=== PATIENT | female | born 1945 | race Caucasian/White ===

== ENCOUNTER 2016-10-27 08:39 | Outpatient (CLI) | payer MEDICARE, OTHER | END 2016-10-27 08:40 | disposition home or self-care (01) | DX: R11.2 Nausea with vomiting, unspecified (principal); E10.9 Type 1 diabetes mellitus without complications ==

== ENCOUNTER 2016-10-30 15:14 | Outpatient (CLI) | payer MEDICARE, OTHER | END 2016-10-30 15:15 | disposition home or self-care (01) | DX: R11.2 Nausea with vomiting, unspecified (principal); R10.32 Left lower quadrant pain ==

== ENCOUNTER 2016-10-31 13:03 | Outpatient (CLI) | payer MEDICARE, OTHER | END 2016-10-31 13:04 | disposition home or self-care (01) | DX: R10.32 Left lower quadrant pain (principal); R11.2 Nausea with vomiting, unspecified; Z90.49 Acquired absence of other specified parts of digestive tract ==

== ENCOUNTER 2017-01-14 14:08 | Outpatient (CLI) | payer MEDICARE, OTHER | END 2017-01-14 14:09 | disposition home or self-care (01) | DX: R79.89 Other specified abnormal findings of blood chemistry (principal) ==

== ENCOUNTER 2017-01-31 11:01 | Outpatient (CLI) | payer MEDICARE, OTHER | END 2017-01-31 11:02 | disposition home or self-care (01) | DX: N18.3 Chronic kidney disease, stage 3 (moderate) (principal) ==

== ENCOUNTER 2017-02-23 16:39 | Outpatient (CLI) | payer MEDICARE, OTHER ==
[2017-02-24 11:34] LABS: THYROID STIMULATING HORMONE 11.75 uIU/mL (0.34-5.60)
== END 2017-02-23 16:40 | disposition home or self-care (01) ==
LOC: LAB.S 16:39
PROVIDERS: ATTEND Nurse Practitioner Family
DX: E03.9 Hypothyroidism, unspecified (principal)
CPT/HCPCS: 36415; 84439; 84443

== ENCOUNTER 2017-03-20 11:45 | Outpatient (CLI) | payer MEDICARE, OTHER | END 2017-03-20 11:46 | disposition short-term general hospital (02) | LOC: EMS 11:45 | PROVIDERS: ATTEND Surgery | DX: R53.1 Weakness (principal) | CPT/HCPCS: A0425; A0427 ==

== ENCOUNTER 2017-04-26 08:00 | Outpatient (CLI) | payer MEDICARE, OTHER ==
[2017-04-26 19:54] LABS: BASOPHILS # (AUTO) 0.1 10^3/uL (0.0-0.1); BASOPHILS % (AUTO) 1.1 %; EOSINOPHILS # (AUTO) 0.3 10^3/uL (0.0-0.7); EOSINOPHILS % (AUTO) 5.1 %; HCT - HEMATOCRIT 30.6 % (37.0-47.0); LYMPHOCYTES % (AUTO) 18.8 %; MEAN CORPUSCULAR HEMOGLOBIN 26.5 pg (27.0-31.0); MEAN CORPUSCULAR HGB CONC 32.6 g/dL (32.0-36.0); MEAN CORPUSCULAR VOLUME 81.3 fL (81.0-99.0); MEAN PLATELET VOLUME 7.5 fL (7.9-10.8); MONOCYTES # (AUTO) 1.1 10^3/uL (0.0-1.0); NEUTROPHILS # (AUTO) 2.8 10^3/uL (1.5-6.6); NUCLEATED RED BLOOD CELLS AUTO 0.1 /100WBC; RED BLOOD COUNT 3.76 10^6/uL (4.20-5.40); RED CELL DISTRIBUTION WIDTH 18.1 % (12.0-15.0); UNCORRECTED WHITE BLOOD COUNT 5.2 x10^3/uL; WHITE BLOOD COUNT 5.2 x10^3/uL (4.8-10.8)
[2017-04-26 20:06] LABS: BILIRUBIN,TOTAL 0.2 mg/dL (0.2-1.0); TOTAL PROTEIN 7.7 g/dL (6.7-8.2)
[2017-04-26 20:07] LABS: BILIRUBIN,DIRECT < 0.1 mg/dL (0.1-0.5)
== END 2017-04-26 08:01 | disposition home or self-care (01) ==
LOC: LAB.R 08:00
DX: D64.9 Anemia, unspecified (principal); Z79.899 Other long term (current) drug therapy
CPT/HCPCS: 80076; 80164; 85025

== ENCOUNTER 2017-05-04 16:00 | Outpatient (CLI) | payer MEDICARE, OTHER ==
[2017-05-04 18:10] LABS: BILIRUBIN,URINE NEGATIVE (NEGATIVE); PH,URINE 8.5 PH (5.0-7.5)
[2017-05-04 18:11] LABS: UA w/ MICROSCOPIC CHARGE YES
[2017-05-04 18:27] LABS: UR CULTURE IF IND INDICATED; WBC,URINE >25 /HPF (0-5)
== END 2017-05-04 16:01 | disposition home or self-care (01) ==
LOC: LAB.R 16:00
DX: N39.0 Urinary tract infection, site not specified (principal)
CPT/HCPCS: 81001; 81003; 87077; 87086

== ENCOUNTER 2017-05-16 18:51 | Outpatient (CLI) | payer MEDICARE, OTHER | END 2017-05-16 18:52 | disposition critical access hospital (66) | LOC: EMS 18:51 | PROVIDERS: ATTEND Surgery | DX: R50.9 Fever, unspecified (principal); R41.0 Disorientation, unspecified; R06.02 Shortness of breath; R05 Cough | CPT/HCPCS: A0425; A0429 ==

== ENCOUNTER 2017-05-16 18:55 | Inpatient (IN) | payer MEDICARE, OTHER ==
[2017-05-16] MEDS ORDERED: VANCOMYCIN INJ 1.5 GM in SODIUM CHLORIDE 0.9% 500 ML IV STA ×2 (19:20→23:49)
[2017-05-16] MEDS ORDERED: CEFEPIME 2 GM in SODIUM CHLORIDE 0.9% MINIBAG 100 ML IV STA (19:20)
--- NOTE | 2017-05-16 19:38 | ED Physician Documentation ---
History of Present Illness - Stated complaint Stated Complaint: FEVER - Chief complaint Chief Complaint: Resp - History obtained from History obtained from: Patient, EMS - History of Present Illness Timing: Other (72-year-old woman presents from local correction by ambulance for hypoxemia (79%) and fever with recent diagnosis of pneumonia on her about day 5 of Zithromax. Review of the chart shows also that she had a fairly resistant UTI a couple of weeks ago. It is not clear what this was treated with. Patient is a poor historian, she said is 1966 and does not really know why she is here and has vacillating complaints.) Review of Systems Unable to obtain: Confused PD PAST MEDICAL HISTORY - Past Surgical History Past Surgical History: Yes General: Cholecystectomy, Appendectomy - Present Medications Home Medications: Ambulatory Orders Medication Instructions Recorded Confirmed FLUoxetine [PROzac] 40 mg PO DAILY 11/10/13 11/10/13 Atorvastatin [Lipitor] 0 mg 05/16/17 Azithromycin 250 mg PO 05/16/17 Clopidogrel [Plavix] 75 mg PO ONCE 05/16/17 05/16/17 oxyCODONE/ACET 5/325 [Percocet 5 1 each PO ONCE 05/16/17 05/16/17 mg/325 mg] - Allergies Allergies/Adverse Reactions: Allergies Allergy/AdvReac Type Severity Reaction Status Date / Time codeine Allergy Unknown Verified 05/16/17 19:02 - Social History Does the pt smoke?: No Smoking Status: Never smoker Does the pt drink ETOH?: No Does the pt have substance abuse?: No PD ED PE NORMAL - Vitals Vital signs reviewed: Yes - General General: No acute distress, Well developed/nourished, Other (Oriented to person only) - HEENT HEENT: PERRL, EOMI - Neck Neck: Supple, no meningeal sign, No bony TTP - Cardiac Cardiac: RRR, No murmur - Respiratory Respiratory: No respiratory distress, Other (Rhonchorous throughout) - Abdomen Abdomen: Soft, Non tender - Back Back: No CVA TTP, No spinal TTP - Derm Derm: Normal color, Warm and dry - Extremities Extremities: No edema, No calf tenderness / cord - Neuro Neuro: binding cutter synthetic cloth 2-12 intact, No motor deficit, No sensory deficit - Psych Psych: Normal mood, Normal affect Results - Vitals Vitals: Vital Signs - 24 hr 05/16/17 18:56 Temperature 38.3 C H Heart Rate 114 H Respiratory 17 Rate Blood Pressure 141/83 H O2 Saturation 96 Oxygen O2 Source Nasal cannula Oxygen Flow Rate 2 - Labs Labs: Laboratory Tests 05/16/17 05/16/17 05/16/17 19:30 19:31 19:31 WBC 17.1 H RBC 3.24 L Hgb 8.6 L Hct 26.4 L MCV 81.5 MCH 26.7 L MCHC 32.8 RDW 17.6 H Plt Count 634 H MPV 6.2 L Neut # Not Reportable Lymph # Not Reportable Reagan # Not Reportable Eos # Not Reportable Baso # Not Reportable Absolute Nucleated RBC Not Reportable Band Neuts % (Manual) 3 Myelocytes % 4 H Neutrophils # (Manual) 14.2 H Lymphocytes # (Manual) 1.0 L Monocytes # (Manual) 0.5 Eosinophils # (Manual) 0.5 Basophils # (Manual) 0.2 H Nucleated RBCs Not Reportable WBC Morphology 1+ TOXIC GRANULATION Platelet Estimate INCREASED (>450,000) RBC Morph Micro Appear NORMAL APPEARANCE Sodium 135 Potassium 3.5 Chloride 96 L Carbon Dioxide 27 Anion Gap 12.0 BUN 18 Creatinine 1.3 H Estimated GFR (MDRD) 40 L Glucose 139 H Lactic Acid Calcium 9.3 Last Dose Date UNKNOWN Last Dose Time UNKNOWN Valproic Acid 36.9 05/16/17 19:31 WBC RBC Hgb Hct MCV MCH MCHC RDW Plt Count MPV Neut # Lymph # Reagan # Eos # Baso # Absolute Nucleated RBC Band Neuts % (Manual) Myelocytes % Neutrophils # (Manual) Lymphocytes # (Manual) Monocytes # (Manual) Eosinophils # (Manual) Basophils # (Manual) Nucleated RBCs WBC Morphology Platelet Estimate RBC Morph Micro Appear Sodium Potassium Chloride Carbon Dioxide Anion Gap BUN Creatinine Estimated GFR (MDRD) Glucose Lactic Acid 1.0 Calcium Last Dose Date Last Dose Time Valproic Acid PD MEDICAL DECISION MAKING - ED course Complexity details: other (RN called [facility], pt was on cipro 250mg po bid x 3d for uti late last mo) ED course: 72-year-old woman presents with known pneumonia from a local correction with hypoxemia and fever, continued infiltrate on x-ray and leukocytosis without evidence of septic shock. Blood cultures were obtained and she was administered cefepime, Levaquin, and vancomycin. Spoke with Dr. Mcallister the hospitalist for admission at 8:33 PM by phone. Departure - Departure Disposition: 66 [facility] DC/Xfer Clinical Impression: Hypoxemia Pneumonia Qualifiers: Pneumonia type: due to unspecified organism Laterality: left Lung location: lower lobe of lung Qualified Code(s): J18.1 - Lobar pneumonia, unspecified organism Condition: Serious
[2017-05-16 19:43] LABS: BASOPHILS % (AUTO) 0.9 %; EOSINOPHILS % (AUTO) 2.4 %; HCT - HEMATOCRIT 26.4 % (37.0-47.0); HGB - HEMOGLOBIN 8.6 g/dL (12.0-16.0); LYMPHOCYTES % (AUTO) 4.3 %; MEAN CORPUSCULAR HEMOGLOBIN 26.7 pg (27.0-31.0); MEAN CORPUSCULAR HGB CONC 32.8 g/dL (32.0-36.0); MEAN CORPUSCULAR VOLUME 81.5 fL (81.0-99.0); MEAN PLATELET VOLUME 6.2 fL (7.9-10.8); MONOCYTES % (AUTO) 8.8 %; NEUTROPHILS % (AUTO) 83.6 %; RED BLOOD COUNT 3.24 10^6/uL (4.20-5.40); RED CELL DISTRIBUTION WIDTH 17.6 % (12.0-15.0); UNCORRECTED WHITE BLOOD COUNT 17.1 x10^3/uL; WHITE BLOOD COUNT 17.1 x10^3/uL (4.8-10.8)
[2017-05-16 20:01] LABS: CALCIUM 9.3 mg/dL (8.5-10.3); CREATININE 1.3 mg/dL (0.4-1.0); POTASSIUM 3.5 mmol/L (3.5-5.0)
--- NOTE | 2017-05-16 20:24 | XRAY Preliminary Report ---
Exam: XR Chest 2 View PA/LAT IMPRESSION: Left lower lobe pneumonia. [facility] SITE ID: [id number]
--- NOTE | 2017-05-16 20:26 | XRAY Report ---
EXAM: CHEST RADIOGRAPHY EXAM DATE: 05/16/2017 08:11 PM. CLINICAL HISTORY: Cough, worse pna. COMPARISON: Chest x-ray 11/22/2012. TECHNIQUE: 2 views. FINDINGS: Lungs/Pleura: There is a consolidative process in the left lower lobe. Right lung is clear. Negative for pneumothorax. Mediastinum: Heart and mediastinal contours are unremarkable. Other: None. IMPRESSION: Left lower lobe pneumonia. [facility] Referring Provider Line: [phone] SITE ID: [id number]
[2017-05-16 20:32] LABS: BAND NEUTROPHILS % (MANUAL) 3 %; BASOPHILS % (MANUAL) 1 %; EOSINOPHILS % (MANUAL) 3 %; LYMPHOCYTES % (MANUAL) 6 %; NEUTROPHILS % (MANUAL) 80 %; PLATELET ESTIMATE, MANUAL INCREASED (>450,000) (NORMAL)
[2017-05-16 20:33] LABS: NP AUTO DIFFERENTIAL? YES; NP MAN DIFFERENTIAL? NO; WBC MORPHOLOGY (MULTIPLE) 1+ TOXIC GRANULATION (NORMAL)
[2017-05-16 20:50] LABS: BILIRUBIN,URINE NEGATIVE (NEGATIVE); UA w/ MICROSCOPIC CHARGE YES
[2017-05-16 20:51] LABS: UR CULTURE IF IND INDICATED
[2017-05-16] MEDS ORDERED: ONDANSETRON ODT 4 MG TABLET TL PRN (21:38)
[2017-05-16] MEDS ORDERED: HALOPERIDOL 5 MG/ML VIAL IM ONE (21:38)
[2017-05-16] MEDS ORDERED: SODIUM CHLORIDE FLUSH 0.9% 10 ML SYRINGE IVP PRN (21:38)
[2017-05-16] MEDS ORDERED: HALOPERIDOL 5 MG/ML VIAL ONE (21:44)
[2017-05-16] MEDS ORDERED: SODIUM CHLORIDE 0.9% 1,000 ML IV ONE (21:48)
[2017-05-16] MEDS ORDERED: ACETAMINOPHEN 650 MG SUPP PR STA (21:48)
[2017-05-16] MEDS ORDERED: ACETAMINOPHEN 650 MG SUPP PR ONE (21:54)
--- NOTE | 2017-05-16 22:06 | HISTORY & PHYSICAL EXAMINATION ---
Chief Complaint - Chief Complaint Chief Complaint: hypoxia, fever Respiratory Admission HPI - Admitted From Admitted from: ED - History Obtained From Records Reviewed: Old records reviewed History obtained from: Patient Exam limitations: Other (dementia) - History of Present Illness Location Problem/Description: chest pain Severity at the worst: reports: Moderate Context of Onset: reports: Other (cough) Timing: reports: Gradual onset Duration: reports: Days: HPI Comment/Other: 72yoF with h/o oropharyngeal cancer, anemia, CKD, CVA and dementia. Pt resides at snf. On 05/04 she was diagnosed with UTI growing a fairly resistant morganella, and given 3days of cipro. On 05/12 she was diagnosed with PNA and started on Azithromycin with no improvement. Today she was noted to have a fever and brought to the ER. Here she was found to have a LLL infiltrate on CXR , elevated WBC wtih left shift, hypoxic to 78% and tachycardic. She states she has been coughing for "some time now", but cannot give details. She endorses chest pain with coughing, small sputum production, unclear if she is having fevers. denies nausea, diarrhea. Has multiple bruises on extremities and states she fell. PMH/PSH - Past Medical History Cardiovascular: positive: Hypertension Neuro: positive: Dementia, CVA, Headache/migraine Endocrine/Autoimmune: positive: HyPOthyroidism : positive: Renal insuffiency Other Past Medical History: anemia, chronic kidney disease, cognitive impairment , major depressive disorder, chronic UTI's - Past Surgical History General: positive: Cholecystectomy, Appendectomy Social & Family Hx - Living Situation Living Arrangement: [facility] Living Situation: With caregiver(s) - Social History Does the pt smoke?: No Smoking Status: Never smoker Does the pt drink ETOH?: No Does the pt have substance abuse?: No Additional Social History: - POLST Patient has POLST: Yes - Family History Family History Comment/Other: unable to obtain due to dementia Meds/Allgy - Home Medications Home Medications: Ambulatory Orders Medication Instructions Recorded Confirmed FLUoxetine [PROzac] 40 mg PO DAILY 11/10/13 11/10/13 Atorvastatin [Lipitor] 0 mg 05/16/17 Azithromycin 250 mg PO 05/16/17 Clopidogrel [Plavix] 75 mg PO ONCE 05/16/17 05/16/17 oxyCODONE/ACET 5/325 [Percocet 5 1 each PO ONCE 05/16/17 05/16/17 mg/325 mg] - Allergies Allergies/Adverse Reactions: Allergies Allergy/AdvReac Type Severity Reaction Status Date / Time codeine Allergy Unknown Verified 05/16/17 19:02 Review of Systems - Constitutional Constitutional: reports: Fever - Ears, Nose & Throat Ears, Nose & Throat: reports: Sore throat - Cardiovascular Cariovascular: reports: Chest pain - Respiratory Respiratory: reports: Cough, Sputum production - Gastrointestinal Gastrointestinal: denies: Diarrhea, Nausea - Neurological Neurological: reports: Memory problems Exam - Vital Signs Reviewed Vital Signs: Yes Vital Signs: Vital Signs x48h Temp Pulse Resp BP Pulse Ox 05/16/17 21:56 118 H 20 153/89 H 95 05/16/17 20:57 36.9 C 106 H 18 150/68 H 97 05/16/17 18:56 38.3 C H 114 H 17 141/83 H 96 - Physical Exam General Appearance: positive: No acute distress Eyes Bilateral: positive: PERRL, EOMI, Conjunctivae nml, No scleral icterus ENT: positive: Dry mucous membranes, Other (poor dentition). negative: Oral lesions Neck: positive: Thyroid nml. negative: Thyromegaly, Lymphadenopathy (R), Lymphadenopathy (L), Stiff neck Respiratory: positive: Chest non-tender, Rhonchi (L base crackles). negative: Wheezes Cardiovascular: positive: Regular rate & rhythm, No murmur, No gallop Peripheral Pulses: positive: 2+ Abdomen: positive: Non-tender, No organomegaly, No distention. negative: Guarding, Rebound Back: negative: CVA tenderness (R), CVA tenderness (L) Skin: positive: Warm, Dry, Other (multiple bruises on legs bilaterally) Extremities: positive: No pedal edema, Joint swelling Neurologic/Psychiatric: positive: Other (constant movement, able to answer some questions, but poor memory of events and timeline) Results - Lab Results Lab results reviewed: Yes Fish Bones: 05/16/17 19:31 05/16/17 19:31 Other Lab Results: Lab Results x24hrs 05/16/17 05/16/17 05/16/17 Range/Units 19:38 19:31 19:31 WBC (4.8-10.8) x10^3/uL RBC (4.20-5.40) 10^6/uL Hgb (12.0-16.0) g/dL Hct (37.0-47.0) % MCV (81.0-99.0) fL MCH (27.0-31.0) pg MCHC (32.0-36.0) g/dL RDW (12.0-15.0) % Plt Count (130-450) 10^3/uL MPV (7.9-10.8) fL Neut # Lymph # Isabella # Eos # Baso # Absolute Nucleated RBC Band Neuts % (Manual) (0 - 10) % Myelocytes % ( - 0) % Neutrophils # (Manual) (1.5-6.6) 10^3/uL Lymphocytes # (Manual) (1.5-3.5) 10^3/uL Monocytes # (Manual) (0.0-1.0) 10^3/uL Eosinophils # (Manual) (0-0.7) 10^3/uL Basophils # (Manual) (0-0.1) 10^3/uL Nucleated RBCs WBC Morphology (NORMAL) Platelet Estimate (NORMAL) RBC Morph Micro Appear (NORMAL) Sodium 135 (135-145) mmol/L Potassium 3.5 (3.5-5.0) mmol/L Chloride 96 L (101-111) mmol/L Carbon Dioxide 27 (21-32) mmol/L Anion Gap 12.0 (6-13) BUN 18 (6-20) mg/dL Creatinine 1.3 H (0.4-1.0) mg/dL Estimated GFR (MDRD) 40 L (>89) Glucose 139 H (70-100) mg/dL Lactic Acid 1.0 (0.5-2.2) mmol/L Calcium 9.3 (8.5-10.3) mg/dL Urine Color YELLOW Urine Clarity HAZY (CLEAR) Urine pH 6.0 (5.0-7.5) PH Ur Specific [place] 1.020 (1.002-1.030) Urine Protein 30 H (NEGATIVE) mg/dL Urine Glucose (UA) NEGATIVE (NEGATIVE) mg/dL Urine Ketones TRACE (NEGATIVE) mg/dL Urine Occult Blood SMALL H (NEGATIVE) Urine Nitrite NEGATIVE (NEGATIVE) Urine Bilirubin NEGATIVE (NEGATIVE) Urine Urobilinogen 0.2 (NORMAL) (NORMAL) E.U./dL Ur Leukocyte Esterase TRACE H (NEGATIVE) Urine RBC 6-10 H (0-5) /HPF Urine WBC 11-25 H (0-5) /HPF Ur Squamous Epith Cells FEW Squamous (<= Few) Urine Bacteria Moderate H (None Seen) /HPF Ur Microscopic Review INDICATED Urine Culture Comments INDICATED Last Dose Date Last Dose Time Valproic Acid ug/mL 05/16/17 05/16/17 Range/Units 19:31 19:30 WBC 17.1 H (4.8-10.8) x10^3/uL RBC 3.24 L (4.20-5.40) 10^6/uL Hgb 8.6 L (12.0-16.0) g/dL Hct 26.4 L (37.0-47.0) % MCV 81.5 (81.0-99.0) fL MCH 26.7 L (27.0-31.0) pg MCHC 32.8 (32.0-36.0) g/dL RDW 17.6 H (12.0-15.0) % Plt Count 634 H (130-450) 10^3/uL MPV 6.2 L (7.9-10.8) fL Neut # Not Reportable Lymph # Not Reportable Isabella # Not Reportable Eos # Not Reportable Baso # Not Reportable Absolute Nucleated RBC Not Reportable Band Neuts % (Manual) 3 (0 - 10) % Myelocytes % 4 H ( - 0) % Neutrophils # (Manual) 14.2 H (1.5-6.6) 10^3/uL Lymphocytes # (Manual) 1.0 L (1.5-3.5) 10^3/uL Monocytes # (Manual) 0.5 (0.0-1.0) 10^3/uL Eosinophils # (Manual) 0.5 (0-0.7) 10^3/uL Basophils # (Manual) 0.2 H (0-0.1) 10^3/uL Nucleated RBCs Not Reportable WBC Morphology 1+ TOXIC GRANULATION (NORMAL) Platelet Estimate INCREASED (>450,000) (NORMAL) RBC Morph Micro Appear NORMAL APPEARANCE (NORMAL) Sodium (135-145) mmol/L Potassium (3.5-5.0) mmol/L Chloride (101-111) mmol/L Carbon Dioxide (21-32) mmol/L Anion Gap (6-13) BUN (6-20) mg/dL Creatinine (0.4-1.0) mg/dL Estimated GFR (MDRD) (>89) Glucose (70-100) mg/dL Lactic Acid (0.5-2.2) mmol/L Calcium (8.5-10.3) mg/dL Urine Color Urine Clarity (CLEAR) Urine pH (5.0-7.5) PH Ur Specific [place] (1.002-1.030) Urine Protein (NEGATIVE) mg/dL Urine Glucose (UA) (NEGATIVE) mg/dL Urine Ketones (NEGATIVE) mg/dL Urine Occult Blood (NEGATIVE) Urine Nitrite (NEGATIVE) Urine Bilirubin (NEGATIVE) Urine Urobilinogen (NORMAL) E.U./dL Ur Leukocyte Esterase (NEGATIVE) Urine RBC (0-5) /HPF Urine WBC (0-5) /HPF Ur Squamous Epith Cells (<= Few) Urine Bacteria (None Seen) /HPF Ur Microscopic Review Urine Culture Comments Last Dose Date UNKNOWN Last Dose Time UNKNOWN Valproic Acid 36.9 ug/mL - Diagnostic Imaging Results Diagnostic Imaging Results: positive: Final report reviewed Diagnostic Imaging Results Comments: LLL infiltrate - Other Other Results/Comments: 05/04 UCx - Morganella morganii (R-Amp, CTX, cefurox, nitro, tetra, I-piper) ARRA - Anticipated LOS Anticipated Stay Length: 2 or more midnights - DVT/VTE - Prophylaxis VTE/DVT Device ordered at admit?: Yes Impression/Plan - Problem List Problem List: 1. LLL PNA - health care acquired and recently on mult abx - stop azithromycin - will give vanc, cefepime and levo - renally dose for CrCl=40 Levo 750mg iv q48hrs Cefepime 2g iv q12hr Vanc 1.5g iv q36hrs - check vanc trough prior to 4th dose - sputum culture - BCx x2 drawn in ER, await results - monitor renal function to assess if further dose adjustment is needed - aggressive RT / pulm toilet - wean oxygen as tolerated 2. CKD - at baseline (Cr=1.3) - monitor closely for possible need to adjust abx dosing 3. Hx of hypothyroidism noted in chart, not on thyroid medication - check TSH and FT4 4. Hx of HTN, not currently on HTN medications outpt, but BP elevated in ER - given acute illness, will not start medication at this time - monitor as infection resolves, may need to consider starting anti-HTN agent 5. h/o CVA - continue plavix - continue lipitor, dose unknown, will give 10mg qhs - check lipid panel 6. Chronic anemia, at baseline per our system 7. poor dentition - refer to dental for outpt management 8. h/o oropharyngeal cancer - does not appear to have acute issues 9. DVT prophy - heparin 10. Dispo - likely will return to snf once hypoxia resolved and off oxygen - anticipate hospital LOS <96 hrs
[2017-05-16] MEDS ORDERED: CLOPIDOGREL 75 MG TABLET PO STA (22:28)
[2017-05-16] MEDS ORDERED: ATORVASTATIN 10 MG TABLET PO STA (22:29)
[2017-05-16] MEDS: SODIUM CHLORIDE 0.9% 1,000 ML IV SCH (22:56)
[2017-05-16] MEDS: SODIUM CHLORIDE FLUSH 0.9% 10 ML SYRINGE IVP SCH (22:56)
[2017-05-17] MEDS ORDERED: VANCOMYCIN 500 MG VIAL ONE (00:07)
[2017-05-17] MEDS ORDERED: VANCOMYCIN 1 GM VIAL ONE (00:08)
[2017-05-17] MEDS ORDERED: SODIUM CHLORIDE 0.9% 500 ML IV ONE (00:09)
[2017-05-17] MEDS: traMADol 50 MG TABLET PO PRN ×5 (01:01→22:36)
[2017-05-17] MEDS: ACETAMINOPHEN 325 MG TABLET PO PRN ×4 (02:35→21:30)
[2017-05-17] MEDS: SODIUM CHLORIDE FLUSH 0.9% 10 ML SYRINGE IVP SCH ×3 (03:45→13:27)
[2017-05-17 06:38] LABS: BASOPHILS % (AUTO) 0.6 %; EOSINOPHILS % (AUTO) 0.1 %; HCT - HEMATOCRIT 23.7 % (37.0-47.0); HGB - HEMOGLOBIN 7.3 g/dL (12.0-16.0); MEAN CORPUSCULAR HEMOGLOBIN 25.5 pg (27.0-31.0); MEAN CORPUSCULAR VOLUME 82.2 fL (81.0-99.0); MEAN PLATELET VOLUME 6.1 fL (7.9-10.8); MONOCYTES % (AUTO) 8.8 %; NEUTROPHILS % (AUTO) 88.5 %; RED BLOOD COUNT 2.88 10^6/uL (4.20-5.40); RED CELL DISTRIBUTION WIDTH 17.8 % (12.0-15.0); UNCORRECTED WHITE BLOOD COUNT 32.7 x10^3/uL; WHITE BLOOD COUNT 32.7 x10^3/uL (4.8-10.8)
[2017-05-17 06:53] LABS: CALCIUM 8.2 mg/dL (8.5-10.3); CREATININE 1.1 mg/dL (0.4-1.0); PHOSPHORUS 2.5 mg/dL (2.5-4.6); POTASSIUM 3.9 mmol/L (3.5-5.0)
[2017-05-17 06:56] LABS: CHOL/HDL RATIO 3.6 (<4.4); CHOLESTEROL 79 mg/dL; HDL CHOLESTEROL 22 mg/dL; LDL/HDL RATIO 1.7 (<4.4); TRIGLYCERIDES 98 mg/dL; VLDL CHOLESTEROL 20 mg/dL
[2017-05-17 07:11] LABS: BAND NEUTROPHILS % (MANUAL) 19 %; EOSINOPHILS % (MANUAL) 1 %; LYMPHOCYTES % (MANUAL) 4 %; NEUTROPHILS % (MANUAL) 74 %; NP AUTO DIFFERENTIAL? YES; NP MAN DIFFERENTIAL? NO; PLATELET ESTIMATE, MANUAL INCREASED (>450,000) (NORMAL); TOTAL CELLS COUNTED 100
[2017-05-17 07:17] LABS: HEMOGLOBIN A1C 0.43 g/dL
[2017-05-17 07:27] LABS: THYROID STIMULATING HORMONE 10.01 uIU/mL (0.34-5.60)
[2017-05-17] MEDS: POLYETHYLENE GLYCOL 3350 17 GM PACKET PO SCH (08:08)
[2017-05-17] MEDS: HEPARIN 5,000 UNIT/ML VIAL SUBQ SCH ×2 (08:08→21:38)
[2017-05-17] MEDS: CEFEPIME 2 GM in SODIUM CHLORIDE 0.9% MINIBAG 100 ML IV SCH ×2 (08:08→21:31)
[2017-05-17] MEDS ORDERED: CLOPIDOGREL 75 MG TABLET PO SCH (09:00)
[2017-05-17] MEDS: SODIUM CHLORIDE 0.9% 1,000 ML IV SCH ×2 (11:10→11:43)
[2017-05-17 12:07] LABS: HCT - HEMATOCRIT 22.9 % (37.0-47.0); HGB - HEMOGLOBIN 7.3 g/dL (12.0-16.0)
--- NOTE | 2017-05-17 13:23 | CT Preliminary Report ---
Exam: CT Chest W/O IMPRESSION: 1. Left lower lobe consolidation suspicious for pneumonia. 2. Small left and trace right pleural effusion. [facility] SITE ID: [id number]
--- NOTE | 2017-05-17 13:26 | CT Report ---
EXAM: CT CHEST EXAM DATE: 05/17/2017 12:21 PM. CLINICAL HISTORY: Cough. COMPARISONS: 08/13/2015. TECHNIQUE: Routine helical CT imaging was performed through the chest. IV contrast: None. Reconstruct ions: Coronal and sagittal. In accordance with CT protocol optimization, one or more of the following dose reduction techniques w ere utilized for this exam: automated exposure control, adjustment of mA and/or KV based on patient s ize, or use of iterative reconstructive technique. FINDINGS: Lungs/Pleura: There is consolidation with air bronchograms in the left lower lobe. There is a small n ew left pleural effusion and a trace right pleural effusion. There is dependent density in the cotton stomper ior left upper lobe and right lower lobe consistent with atelectasis. Mediastinum: The heart size is normal. There are moderate coronary artery calcifications. Bones: Unremarkable. Visualized Abdomen: Unremarkable. Other: None. IMPRESSION: 1. Left lower lobe consolidation suspicious for pneumonia. 2. Small left and trace right pleural effusion. [facility] Referring Provider Line: [phone] SITE ID: [id number]
--- NOTE | 2017-05-17 14:04 | CT Preliminary Report ---
Exam: CT Abdomen/Pelvis W/O IMPRESSION: Mild/moderate colonic diverticulosis without findings of acute diverticulitis. No other l ocalizing acute inflammatory process demonstrated. [facility] SITE ID: [id number]
--- NOTE | 2017-05-17 14:07 | CT Report ---
EXAM: CT ABDOMEN AND PELVIS EXAM DATE: 05/17/2017 12:21 PM. CLINICAL HISTORY: Left lower quadrant pain. COMPARISONS: 10/31/2016. TECHNIQUE: Routine helical CT imaging was performed through the abdomen and pelvis. IV contrast: No. Enteric contrast: No. Reconstructions: Coronal and sagittal. In accordance with CT protocol optimization, one or more of the following dose reduction techniques w ere utilized for this exam: automated exposure control, adjustment of mA and/or KV based on patient s ize, or use of iterative reconstructive technique. FINDINGS: Lung Bases: There is left lower lobe consolidation and pleural effusion. Liver: The liver is normal in size and contour. Gallbladder/Bile Ducts: The gallbladder is surgically absent. Spleen: Spleen size is normal. Pancreas: Pancreas is normal in size and contour. Adrenal Glands: Normal. Kidneys: No urolithiasis or hydronephrosis. Peritoneal Cavity/Bowel: No bowel obstruction. No abnormal fluid or gas collection. There are mild to moderate scattered colonic diverticula. Pelvic Organs: Urinary bladder is unremarkable. Vasculature: No aneurysms or other significant abnormality. Bones: No lytic or destructive bony process. Other: None. IMPRESSION: Mild/moderate colonic diverticulosis without findings of acute diverticulitis. No other l ocalizing acute inflammatory process demonstrated. [facility] Referring Provider Line: [phone] SITE ID: [id number]
--- NOTE | 2017-05-17 19:13 | PROVIDER PROGRESS NOTE ---
Subjective - Subjective Pt reports feeling: Improved Subjective: pt report she improve on respiratory, no SOB. had some left lower extremity abdominal pain, weakness Objective - Vital Signs/Intake & Output Vital Signs: Vital Signs x48h Temp Pulse Resp BP Pulse Ox 05/17/17 15:49 36.5 C 83 16 105/54 L 94 05/17/17 13:40 36.7 C 56 L 16 98/49 L 05/17/17 13:07 36.8 C 90 18 98/52 L 96 Intake & Output: Intake & Output 05/14/17 05/15/17 05/16/17 05/17/17 23:59 23:59 23:59 23:59 Intake Total 2877 Balance 2877 - Objective General Appearance: positive: Alert, Mild distress. negative: Lethargic Eyes Bilateral: positive: Normal inspection, PERRL, EOMI ENT: positive: ENT inspection nml, Pharynx nml, No signs of dehydration. negative: Purulent nasal drainage, Pharyngeal erythema Neck: positive: Nml inspection, Thyroid nml, Trachea midline. negative: Lymphadenopathy (R), Lymphadenopathy (L), Stiff neck, Swelling/bruising Respiratory: positive: Chest non-tender, No respiratory distress, Rhonchi. negative: Wheezes, Rales Cardiovascular: positive: Regular rate & rhythm. negative: Extrasystoles, Tachycardia, Bradycardia, Gallop/S4, Friction rub, Decreased pulse(s), Crepitus Peripheral Pulses: 2+ Radial (R), 2+ Radial (L), 2+ Dorsalis pedis (R), 2+ Dorsalis pedis (L) Abdomen: positive: Non-tender, Nml bowel sounds, No distention, Other (complain of pain at left lower quadrant). negative: Tenderness, Guarding, Rebound Back: positive: Nml inspection. negative: CVA tenderness (R), CVA tenderness (L ) Skin: positive: Color nml, Warm, Dry, Pallor. negative: Diaphoresis, Decubitus Extremities: positive: Non-tender, Full ROM, Nml appearance Neurologic/Psychiatric: positive: Oriented x3, CN's nml (2-12), Motor nml, Sensation nml, Mood/affect nml. negative: Disoriented to person, Disoriented to place, Disoriented to time, Weakness, Sensory loss, Facial droop, Slurred/ abnml speech, Depressed mood/affect - Lab Results Fish Bones: 05/18/17 13:14 05/18/17 13:14 Other Labs: Lab Results x24hrs 05/17/17 05/17/17 05/17/17 Range/Units 11:47 11:47 06:18 WBC (4.8-10.8) x10^3/uL RBC (4.20-5.40) 10^6/uL Hgb 7.3 L (12.0-16.0) g/dL Hct 22.9 L (37.0-47.0) % MCV (81.0-99.0) fL MCH (27.0-31.0) pg MCHC (32.0-36.0) g/dL RDW (12.0-15.0) % Plt Count (130-450) 10^3/uL MPV (7.9-10.8) fL Neut # Lymph # Ralls # Eos # Baso # Absolute Nucleated RBC Total Counted Band Neuts % (Manual) (0 - 10) % Neutrophils # (Manual) (1.5-6.6) 10^3/uL Lymphocytes # (Manual) (1.5-3.5) 10^3/uL Monocytes # (Manual) (0.0-1.0) 10^3/uL Eosinophils # (Manual) (0-0.7) 10^3/uL Nucleated RBCs Differential Comment Platelet Estimate (NORMAL) RBC Morph Micro Appear (NORMAL) Sodium (135-145) mmol/L Potassium (3.5-5.0) mmol/L Chloride (101-111) mmol/L Carbon Dioxide (21-32) mmol/L Anion Gap (6-13) BUN (6-20) mg/dL Creatinine (0.4-1.0) mg/dL Estimated GFR (MDRD) (>89) Glucose (70-100) mg/dL Glycated Hemoglobin (4.6-6.2) % Estim Average Glucose (70-100) Calcium (8.5-10.3) mg/dL Phosphorus (2.5-4.6) mg/dL Albumin (3.2-5.5) g/dL Triglycerides ( - 149) mg/dL Cholesterol ( - 199) mg/dL LDL Cholesterol, Calc ( - 129) mg/dL VLDL Cholesterol mg/dL HDL Cholesterol (60 - ) mg/dL LDL/HDL Ratio (<4.4) Cholesterol/HDL Ratio (<4.4) TSH (0.34-5.60) uIU/mL Free T4 (0.58-1.64) ng/dL Blood Type O POSITIVE Blood Type Recheck O POSITIVE Antibody Screen NEGATIVE Crossmatch IS Only See Detail 05/17/17 05/17/17 05/17/17 Range/Units 06:18 06:18 06:18 WBC (4.8-10.8) x10^3/uL RBC (4.20-5.40) 10^6/uL Hgb (12.0-16.0) g/dL Hct (37.0-47.0) % MCV (81.0-99.0) fL MCH (27.0-31.0) pg MCHC (32.0-36.0) g/dL RDW (12.0-15.0) % Plt Count (130-450) 10^3/uL MPV (7.9-10.8) fL Neut # Lymph # Ralls # Eos # Baso # Absolute Nucleated RBC Total Counted Band Neuts % (Manual) (0 - 10) % Neutrophils # (Manual) (1.5-6.6) 10^3/uL Lymphocytes # (Manual) (1.5-3.5) 10^3/uL Monocytes # (Manual) (0.0-1.0) 10^3/uL Eosinophils # (Manual) (0-0.7) 10^3/uL Nucleated RBCs Differential Comment Platelet Estimate (NORMAL) RBC Morph Micro Appear (NORMAL) Sodium (135-145) mmol/L Potassium (3.5-5.0) mmol/L Chloride (101-111) mmol/L Carbon Dioxide (21-32) mmol/L Anion Gap (6-13) BUN (6-20) mg/dL Creatinine (0.4-1.0) mg/dL Estimated GFR (MDRD) (>89) Glucose (70-100) mg/dL Glycated Hemoglobin 7.1 H (4.6-6.2) % Estim Average Glucose 157 H (70-100) Calcium (8.5-10.3) mg/dL Phosphorus (2.5-4.6) mg/dL Albumin (3.2-5.5) g/dL Triglycerides 98 ( - 149) mg/dL Cholesterol 79 ( - 199) mg/dL LDL Cholesterol, Calc 37 ( - 129) mg/dL VLDL Cholesterol 20 mg/dL HDL Cholesterol 22 L (60 - ) mg/dL LDL/HDL Ratio 1.7 (<4.4) Cholesterol/HDL Ratio 3.6 (<4.4) TSH 10.01 H (0.34-5.60) uIU/mL Free T4 0.98 (0.58-1.64) ng/dL Blood Type Blood Type Recheck Antibody Screen Crossmatch IS Only 05/17/17 05/17/17 Range/Units 06:18 06:18 WBC 32.7 H (4.8-10.8) x10^3/uL RBC 2.88 L (4.20-5.40) 10^6/uL Hgb 7.3 L (12.0-16.0) g/dL Hct 23.7 L (37.0-47.0) % MCV 82.2 (81.0-99.0) fL MCH 25.5 L (27.0-31.0) pg MCHC 31.0 L (32.0-36.0) g/dL RDW 17.8 H (12.0-15.0) % Plt Count 507 H (130-450) 10^3/uL MPV 6.1 L (7.9-10.8) fL Neut # Not Reportable Lymph # Not Reportable Ralls # Not Reportable Eos # Not Reportable Baso # Not Reportable Absolute Nucleated RBC Not Reportable Total Counted 100 Band Neuts % (Manual) 19 H (0 - 10) % Neutrophils # (Manual) 30.4 H (1.5-6.6) 10^3/uL Lymphocytes # (Manual) 1.3 L (1.5-3.5) 10^3/uL Monocytes # (Manual) 0.7 (0.0-1.0) 10^3/uL Eosinophils # (Manual) 0.3 (0-0.7) 10^3/uL Nucleated RBCs Not Reportable Differential Comment MANUAL DIFFERENTIAL Platelet Estimate INCREASED (>450,000) (NORMAL) RBC Morph Micro Appear NORMAL APPEARANCE (NORMAL) Sodium 137 (135-145) mmol/L Potassium 3.9 (3.5-5.0) mmol/L Chloride 105 (101-111) mmol/L Carbon Dioxide 24 (21-32) mmol/L Anion Gap 8.0 (6-13) BUN 16 (6-20) mg/dL Creatinine 1.1 H (0.4-1.0) mg/dL Estimated GFR (MDRD) 49 L (>89) Glucose 139 H (70-100) mg/dL Glycated Hemoglobin (4.6-6.2) % Estim Average Glucose (70-100) Calcium 8.2 L (8.5-10.3) mg/dL Phosphorus 2.5 (2.5-4.6) mg/dL Albumin 2.0 L (3.2-5.5) g/dL Triglycerides ( - 149) mg/dL Cholesterol ( - 199) mg/dL LDL Cholesterol, Calc ( - 129) mg/dL VLDL Cholesterol mg/dL HDL Cholesterol (60 - ) mg/dL LDL/HDL Ratio (<4.4) Cholesterol/HDL Ratio (<4.4) TSH (0.34-5.60) uIU/mL Free T4 (0.58-1.64) ng/dL Blood Type Blood Type Recheck Antibody Screen Crossmatch IS Only Assessment/Plan - Problem List (1) Pneumonia Impression: continue to treatment, lung sound is better. pt state she feel much better sputum culture Qualifiers: Pneumonia type: due to unspecified organism Laterality: left Lung location: lower lobe of lung Qualified Code(s): J18.1 - Lobar pneumonia, unspecified organism (2) UTI (urinary tract infection) Impression: continue to treat, follow up UA Qualifiers: Urinary tract infection type: site unspecified Hematuria presence: without hematuria Qualified Code(s): N39.0 - Urinary tract infection, site not specified (3) Hypoxemia Impression: will try wane down O2 NC, consult with RTjake (4) Headache Impression: resolved Qualifiers: Headache type: paroxysmal hemicrania Headache chronicity pattern: chronic headache Intractability: intractable Qualified Code(s): 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
[2017-05-17] MEDS: ATORVASTATIN 40 MG TABLET PO SCH (21:30)
[2017-05-18] MEDS: VANCOMYCIN INJ 1 GM in SODIUM CHLORIDE 0.9% 250 ML IV SCH (01:51)
[2017-05-18] MEDS: traMADol 50 MG TABLET PO PRN ×3 (05:21→16:53)
[2017-05-18 06:53] LABS: BASOPHILS # (AUTO) 0.1 10^3/uL (0.0-0.1); BASOPHILS % (AUTO) 0.4 %; EOSINOPHILS # (AUTO) 0.2 10^3/uL (0.0-0.7); LYMPHOCYTES % (AUTO) 4.3 %; MEAN CORPUSCULAR HGB CONC 32.3 g/dL (32.0-36.0); MEAN CORPUSCULAR VOLUME 83.7 fL (81.0-99.0); MONOCYTES # (AUTO) 1.7 10^3/uL (0.0-1.0); MONOCYTES % (AUTO) 7.4 %; NEUTROPHILS # (AUTO) 20.4 10^3/uL (1.5-6.6); NEUTROPHILS % (AUTO) 86.9 %; RED BLOOD COUNT 4.07 10^6/uL (4.20-5.40); RED CELL DISTRIBUTION WIDTH 17.7 % (12.0-15.0); UNCORRECTED WHITE BLOOD COUNT 23.4 x10^3/uL; WHITE BLOOD COUNT 23.4 x10^3/uL (4.8-10.8)
[2017-05-18] MEDS: SODIUM CHLORIDE FLUSH 0.9% 10 ML SYRINGE IVP SCH ×3 (07:33→22:51)
[2017-05-18 08:34] LABS: PLATELET ESTIMATE, MANUAL NORMAL (130-450,000) (NORMAL); PLATELET MORPHOLOGY NORMAL APPEARANCE (NORMAL)
[2017-05-18] MEDS: ACETAMINOPHEN 325 MG TABLET PO PRN ×3 (09:05→16:52)
[2017-05-18] MEDS: HEPARIN 5,000 UNIT/ML VIAL SUBQ SCH ×2 (09:09→22:08)
[2017-05-18] MEDS: POLYETHYLENE GLYCOL 3350 17 GM PACKET PO SCH (09:10)
[2017-05-18] MEDS: SODIUM CHLORIDE 0.9% 1,000 ML IV SCH ×2 (10:56→13:55)
[2017-05-18] MEDS ORDERED: VANCOMYCIN INJ 1.5 GM in SODIUM CHLORIDE 0.9% 500 ML IV SCH (11:00)
[2017-05-18 13:39] LABS: ALBUMIN/GLOBULIN RATIO 0.5 (1.0-2.2); BILIRUBIN,TOTAL 0.4 mg/dL (0.2-1.0); CALCIUM 8.2 mg/dL (8.5-10.3); POTASSIUM 3.4 mmol/L (3.5-5.0); TOTAL PROTEIN 6.3 g/dL (6.7-8.2)
[2017-05-18] MEDS: CEFEPIME 2 GM in SODIUM CHLORIDE 0.9% MINIBAG 100 ML IV SCH ×2 (13:54→22:07)
[2017-05-18] MEDS ORDERED: SODIUM CHLORIDE FLUSH 0.9% 10 ML SYRINGE IVP ONE (14:26)
[2017-05-18 15:08] LABS: BASOPHILS % (AUTO) 0.4 %; EOSINOPHILS % (AUTO) 1.4 %; HCT - HEMATOCRIT 33.5 % (37.0-47.0); LYMPHOCYTES % (AUTO) 5.3 %; MEAN CORPUSCULAR HEMOGLOBIN 27.3 pg (27.0-31.0); MEAN CORPUSCULAR HGB CONC 32.8 g/dL (32.0-36.0); MEAN PLATELET VOLUME 6.5 fL (7.9-10.8); MONOCYTES % (AUTO) 6.9 %; RED BLOOD COUNT 4.04 10^6/uL (4.20-5.40); RED CELL DISTRIBUTION WIDTH 17.7 % (12.0-15.0); UNCORRECTED WHITE BLOOD COUNT 21.4 x10^3/uL; WHITE BLOOD COUNT 21.4 x10^3/uL (4.8-10.8)
[2017-05-18 15:36] LABS: BAND NEUTROPHILS % (MANUAL) 19 %; EOSINOPHILS % (MANUAL) 1 %; LYMPHOCYTES % (MANUAL) 7 %; NEUTROPHILS % (MANUAL) 68 %; TOTAL CELLS COUNTED 100
[2017-05-18 15:37] LABS: NP AUTO DIFFERENTIAL? YES; NP MAN DIFFERENTIAL? NO; PLATELET ESTIMATE, MANUAL INCREASED (>450,000) (NORMAL); PLATELET MORPHOLOGY RARE GIANT PLATELETS (NORMAL)
[2017-05-18] MEDS ORDERED: IPRATROPIUM/ALBUTEROL 3 ML NEB INH PRN (18:34)
--- NOTE | 2017-05-18 18:38 | PROVIDER PROGRESS NOTE ---
Subjective - Subjective Pt reports feeling: Improved Subjective: pt report she feel "very good". no other complaints Objective - Vital Signs/Intake & Output Vital Signs: Vital Signs x48h Temp Pulse Resp BP Pulse Ox 05/18/17 15:45 36.3 C L 79 16 134/75 H 95 Intake & Output: Intake & Output 05/15/17 05/16/17 05/17/17 05/18/17 23:59 23:59 23:59 23:59 Intake Total 3030 1310 Balance 3030 1310 - Objective General Appearance: positive: No acute distress, Alert. negative: Anxious Eyes Bilateral: positive: Normal inspection, PERRL. negative: Conjunctivae nml ENT: positive: ENT inspection nml, Pharynx nml. negative: Purulent nasal drainage, Pharyngeal erythema Neck: positive: Nml inspection, Thyroid nml, Trachea midline. negative: Lymphadenopathy (R), Lymphadenopathy (L), Swelling/bruising Respiratory: positive: Chest non-tender, No respiratory distress, Breath sounds nml. negative: Wheezes, Rales Cardiovascular: positive: Regular rate & rhythm. negative: Irregularly irregular, Tachycardia, Bradycardia Peripheral Pulses: 2+ Radial (R), 2+ Radial (L), 2+ Dorsalis pedis (R), 2+ Dorsalis pedis (L) Abdomen: positive: Non-tender, Nml bowel sounds, No distention. negative: Tenderness, Guarding, Rebound Back: positive: Nml inspection. negative: CVA tenderness (R), CVA tenderness (L ) Skin: positive: Color nml, Warm, Dry. negative: Cyanosis, Diaphoresis, Skin rash Extremities: positive: Non-tender, Full ROM, Nml appearance. negative: No pedal edema, Pedal edema, Calf tenderness, Av's sign/cords Neurologic/Psychiatric: positive: Oriented x3, CN's nml (2-12), Motor nml, Sensation nml, Mood/affect nml. negative: Disoriented to person, Disoriented to place, Disoriented to time, Weakness, Sensory loss, Facial droop, Slurred/ abnml speech - Lab Results Fish Bones: 05/18/17 13:14 05/18/17 13:14 Other Labs: Lab Results x24hrs 05/18/17 05/18/17 05/18/17 Range/Units 13:14 13:14 06:30 WBC 21.4 H 23.4 H (4.8-10.8) x10^3/uL RBC 4.04 L 4.07 L (4.20-5.40) 10^6/uL Hgb 11.0 L 11.0 L (12.0-16.0) g/dL Hct 33.5 L 34.0 L (37.0-47.0) % MCV 83.0 83.7 (81.0-99.0) fL MCH 27.3 27.0 (27.0-31.0) pg MCHC 32.8 32.3 (32.0-36.0) g/dL RDW 17.7 H 17.7 H (12.0-15.0) % Plt Count 437 448 (130-450) 10^3/uL MPV 6.5 L 6.0 L (7.9-10.8) fL Neut # Not Reportable 20.4 H (1.5-6.6) 10^3/uL Lymph # Not Reportable 1.0 L (1.5-3.5) 10^3/uL Story # Not Reportable 1.7 H (0.0-1.0) 10^3/uL Eos # Not Reportable 0.2 (0.0-0.7) 10^3/uL Baso # Not Reportable 0.1 (0.0-0.1) 10^3/uL Absolute Nucleated RBC Not Reportable 0.01 x10^3/uL Total Counted 100 Band Neuts % (Manual) 19 H (0 - 10) % Neutrophils # (Manual) 18.6 H (1.5-6.6) 10^3/uL Lymphocytes # (Manual) 1.5 (1.5-3.5) 10^3/uL Monocytes # (Manual) 1.1 H (0.0-1.0) 10^3/uL Eosinophils # (Manual) 0.2 (0-0.7) 10^3/uL Nucleated RBCs Not Reportable 0.0 /100WBC Differential Comment MANUAL DIFFERENTIAL Manual Slide Review Indicated WBC Morphology 1+ TOXIC GRANULATION (NORMAL) Platelet Estimate INCREASED (>450,000) NORMAL (130-450,000) (NORMAL) Platelet Morphology RARE GIANT PLATELETS NORMAL APPEARANCE (NORMAL) RBC Morph Micro Appear 1+ HYPOCHROMASIA NORMAL APPEARANCE (NORMAL) Sodium 134 L (135-145) mmol/L Potassium 3.4 L (3.5-5.0) mmol/L Chloride 107 (101-111) mmol/L Carbon Dioxide 19 L (21-32) mmol/L Anion Gap 8.0 (6-13) BUN 15 (6-20) mg/dL Creatinine 1.0 (0.4-1.0) mg/dL Estimated GFR (MDRD) 54 L (>89) Glucose 142 H (70-100) mg/dL Calcium 8.2 L (8.5-10.3) mg/dL Total Bilirubin 0.4 (0.2-1.0) mg/dL AST 23 (10-42) IU/L ALT 15 (10-60) IU/L Alkaline Phosphatase 93 (42-121) IU/L Total Protein 6.3 L (6.7-8.2) g/dL Albumin 2.1 L (3.2-5.5) g/dL Globulin 4.2 (2.1-4.2) g/dL Albumin/Globulin Ratio 0.5 L (1.0-2.2) Assessment/Plan - Problem List (1) Pneumonia Impression: continue to treat, daily lab test, RT consult Qualifiers: Pneumonia type: due to unspecified organism Laterality: left Lung location: lower lobe of lung Qualified Code(s): J18.1 - Lobar pneumonia, unspecified organism (2) UTI (urinary tract infection) Impression: continue to treat, monitor closely Qualifiers: Urinary tract infection type: site unspecified Hematuria presence: without hematuria Qualified Code(s): N39.0 - Urinary tract infection, site not specified (3) Hypoxemia Impression: will try wane off O2 (4) Headache Impression: resolved Qualifiers: Headache type: paroxysmal hemicrania Headache chronicity pattern: chronic headache Intractability: intractable Qualified Code(s): 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
[2017-05-18] MEDS: ATORVASTATIN 40 MG TABLET PO SCH (22:08)
[2017-05-19] MEDS: traMADol 50 MG TABLET PO PRN ×4 (00:22→18:44)
[2017-05-19] MEDS: ACETAMINOPHEN 325 MG TABLET PO PRN (00:22)
[2017-05-19] MEDS: VANCOMYCIN INJ 1 GM in SODIUM CHLORIDE 0.9% 250 ML IV SCH (01:39)
[2017-05-19] MEDS: SODIUM CHLORIDE 0.9% 1,000 ML IV SCH ×3 (04:09→20:22)
[2017-05-19 06:07] LABS: BASOPHILS # (AUTO) 0.1 10^3/uL (0.0-0.1); BASOPHILS % (AUTO) 0.4 %; EOSINOPHILS # (AUTO) 0.6 10^3/uL (0.0-0.7); EOSINOPHILS % (AUTO) 4.1 %; HCT - HEMATOCRIT 32.6 % (37.0-47.0); HGB - HEMOGLOBIN 10.6 g/dL (12.0-16.0); LYMPHOCYTES % (AUTO) 7.5 %; MEAN CORPUSCULAR HEMOGLOBIN 27.6 pg (27.0-31.0); MEAN CORPUSCULAR HGB CONC 32.7 g/dL (32.0-36.0); MEAN CORPUSCULAR VOLUME 84.6 fL (81.0-99.0); MEAN PLATELET VOLUME 6.4 fL (7.9-10.8); MONOCYTES # (AUTO) 1.1 10^3/uL (0.0-1.0); MONOCYTES % (AUTO) 7.8 %; NEUTROPHILS # (AUTO) 11.1 10^3/uL (1.5-6.6); NEUTROPHILS % (AUTO) 80.2 %; RED BLOOD COUNT 3.86 10^6/uL (4.20-5.40); UNCORRECTED WHITE BLOOD COUNT 13.8 x10^3/uL; WHITE BLOOD COUNT 13.8 x10^3/uL (4.8-10.8)
[2017-05-19 06:20] LABS: ALBUMIN/GLOBULIN RATIO 0.5 (1.0-2.2); BILIRUBIN,TOTAL 0.8 mg/dL (0.2-1.0); CALCIUM 8.1 mg/dL (8.5-10.3); POTASSIUM 3.5 mmol/L (3.5-5.0)
[2017-05-19 06:48] LABS: NP AUTO DIFFERENTIAL? NO; NP MAN DIFFERENTIAL? YES; PLATELET ESTIMATE, MANUAL INCREASED (>450,000) (NORMAL); PLATELET MORPHOLOGY NORMAL APPEARANCE (NORMAL)
[2017-05-19] MEDS: SODIUM CHLORIDE FLUSH 0.9% 10 ML SYRINGE IVP SCH ×3 (07:19→20:22)
[2017-05-19] MEDS: CEFEPIME 2 GM in SODIUM CHLORIDE 0.9% MINIBAG 100 ML IV SCH ×2 (09:04→20:22)
[2017-05-19] MEDS: HEPARIN 5,000 UNIT/ML VIAL SUBQ SCH ×2 (09:04→20:21)
[2017-05-19] MEDS: POLYETHYLENE GLYCOL 3350 17 GM PACKET PO SCH ×2 (09:04→14:52)
--- NOTE | 2017-05-19 17:48 | PROVIDER PROGRESS NOTE ---
Subjective - Subjective Pt reports feeling: Improved Subjective: pt state she feel much better today. denies other complaints.no chest pain, sob , headache. SO2 96% with room air. great improvement. Objective - Vital Signs/Intake & Output Vital Signs: Vital Signs x48h Temp Pulse Resp BP Pulse Ox 05/19/17 17:05 36.7 C 91 16 145/75 H 96 Intake & Output: Intake & Output 05/16/17 05/17/17 05/18/17 05/19/17 23:59 23:59 23:59 23:59 Intake Total 3030 1310 1327 Balance 3030 1310 1327 - Objective General Appearance: positive: No acute distress, Alert. negative: Anxious, Lethargic Eyes Bilateral: positive: Normal inspection, PERRL. negative: No lid inflammation, Conjunctivae nml ENT: positive: ENT inspection nml, Pharynx nml, No signs of dehydration. negative: Purulent nasal drainage, Pharyngeal erythema Neck: positive: Nml inspection, Thyroid nml, Trachea midline. negative: Lymphadenopathy (R), Lymphadenopathy (L), Carotid bruit, Swelling/bruising Respiratory: positive: Chest non-tender, No respiratory distress, Breath sounds nml. negative: Wheezes, Rales, Rhonchi Cardiovascular: positive: Regular rate & rhythm, No murmur, No gallop. negative : Irregularly irregular, Gallop/S4, Friction rub, Decreased pulse(s) Peripheral Pulses: 2+ Radial (R), 2+ Radial (L), 2+ Dorsalis pedis (R), 2+ Dorsalis pedis (L) Abdomen: positive: Non-tender, Nml bowel sounds, No distention. negative: Tenderness, Guarding, Rebound Back: positive: Nml inspection. negative: CVA tenderness (R), CVA tenderness (L ) Skin: positive: Color nml, Warm. negative: Diaphoresis, Skin rash, Decubitus, Puncture wound Extremities: positive: Non-tender, Full ROM, Nml appearance. negative: No pedal edema, Pedal edema, Joint swelling Neurologic/Psychiatric: positive: Oriented x3, CN's nml (2-12), Motor nml, Sensation nml, Mood/affect nml, Weakness. negative: Disoriented to person, Disoriented to place, Disoriented to time, Sensory loss, Facial droop, Slurred/ abnml speech, Depressed mood/affect - Lab Results Fish Bones: 05/19/17 05:27 05/19/17 05:27 Other Labs: Lab Results x24hrs 05/19/17 05/19/17 Range/Units 05:27 05:27 WBC 13.8 H (4.8-10.8) x10^3/uL RBC 3.86 L (4.20-5.40) 10^6/uL Hgb 10.6 L (12.0-16.0) g/dL Hct 32.6 L (37.0-47.0) % MCV 84.6 (81.0-99.0) fL MCH 27.6 (27.0-31.0) pg MCHC 32.7 (32.0-36.0) g/dL RDW 18.0 H (12.0-15.0) % Plt Count 470 H (130-450) 10^3/uL MPV 6.4 L (7.9-10.8) fL Neut # 11.1 H (1.5-6.6) 10^3/uL Lymph # 1.0 L (1.5-3.5) 10^3/uL [place] # 1.1 H (0.0-1.0) 10^3/uL Eos # 0.6 (0.0-0.7) 10^3/uL Baso # 0.1 (0.0-0.1) 10^3/uL Absolute Nucleated RBC 0.00 x10^3/uL Band Neuts % (Manual) Not Reportable Nucleated RBCs 0.0 /100WBC Differential Comment MANUAL=AUTO DIFF Platelet Estimate INCREASED (>450,000) (NORMAL) Platelet Morphology NORMAL APPEARANCE (NORMAL) RBC Morph Micro Appear NORMAL APPEARANCE (NORMAL) Sodium 136 (135-145) mmol/L Potassium 3.5 (3.5-5.0) mmol/L Chloride 108 (101-111) mmol/L Carbon Dioxide 20 L (21-32) mmol/L Anion Gap 8.0 (6-13) BUN 12 (6-20) mg/dL Creatinine 1.0 (0.4-1.0) mg/dL Estimated GFR (MDRD) 54 L (>89) Glucose 96 (70-100) mg/dL Calcium 8.1 L (8.5-10.3) mg/dL Total Bilirubin 0.8 (0.2-1.0) mg/dL AST 21 (10-42) IU/L ALT 15 (10-60) IU/L Alkaline Phosphatase 84 (42-121) IU/L Total Protein 6.0 L (6.7-8.2) g/dL Albumin 1.9 L (3.2-5.5) g/dL Globulin 4.1 (2.1-4.2) g/dL Albumin/Globulin Ratio 0.5 L (1.0-2.2) Assessment/Plan - Problem List (1) Pneumonia Impression: great improve, WBC down, now room air with SO2 96%, continue treatment on today Qualifiers: Pneumonia type: due to unspecified organism Laterality: left Lung location: lower lobe of lung Qualified Code(s): J18.1 - Lobar pneumonia, unspecified organism (2) UTI (urinary tract infection) Impression: denies dysuria, continue to treat on today, follow UA culture Qualifiers: Urinary tract infection type: site unspecified Hematuria presence: without hematuria Qualified Code(s): N39.0 - Urinary tract infection, site not specified (3) Hypoxemia Impression: great improved, room air SO2 96%, denies SOB. 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
[2017-05-19] MEDS: ATORVASTATIN 40 MG TABLET PO SCH (20:22)
[2017-05-20 01:56] LABS: ALBUMIN/GLOBULIN RATIO 0.4 (1.0-2.2); BILIRUBIN,TOTAL 0.4 mg/dL (0.2-1.0); CALCIUM 8.3 mg/dL (8.5-10.3); CREATININE 0.9 mg/dL (0.4-1.0); POTASSIUM 3.5 mmol/L (3.5-5.0); TOTAL PROTEIN 6.8 g/dL (6.7-8.2)
[2017-05-20] MEDS ORDERED: SODIUM CHLORIDE 0.9% 250 ML IV ONE (02:06)
[2017-05-20] MEDS: VANCOMYCIN INJ 1 GM in SODIUM CHLORIDE 0.9% 250 ML IV SCH (02:09)
[2017-05-20] MEDS: traMADol 50 MG TABLET PO PRN ×3 (02:18→21:21)
[2017-05-20] MEDS: SODIUM CHLORIDE FLUSH 0.9% 10 ML SYRINGE IVP SCH ×3 (06:28→19:47)
--- NOTE | 2017-05-20 07:53 | PROVIDER PROGRESS NOTE ---
Assessment/Plan - Problem List (1) Pneumonia Qualifiers: Pneumonia type: due to unspecified organism Laterality: left Lung location: lower lobe of lung Qualified Code(s): J18.1 - Lobar pneumonia, unspecified organism Assessment/Plan: treated with Vanco, levaquin and Cefepime; sputum culture negative positive blood culture with Staph Epidernidis; questionable contamination; will repeat blood culture today. narrow down antibiotic to Doxycycline for Staph Epidernidis per culture report watch over night (2) UTI (urinary tract infection) Qualifiers: Urinary tract infection type: site unspecified Hematuria presence: without hematuria Qualified Code(s): N39.0 - Urinary tract infection, site not specified Assessment/Plan: culture is positive for enterococcus. sensitive to Levaquin continue levaquin (3) Bacteremia Assessment/Plan: positive blood culture with Staph Epidermidis; questionable contamination; will repeat blood culture today. clinically no signs of sepsis no fever, chills (7) Hypoxemia Assessment/Plan: resolving - Current Meds Current Meds: Current Medications Generic Name Dose Route Start Last Admin Trade Name Freq PRN Reason Stop Dose Admin Acetaminophen 650 mg 05/16/17 21:38 05/19/17 00:22 Tylenol PO 650 mg Q4HR PRN Administration Pain 1 to 4 Atorvastatin Calcium 40 mg 05/17/17 21:00 05/19/17 20:22 Lipitor PO 40 mg QPM JONA Administration Heparin Sodium (Porcine) 5,000 unit 05/17/17 09:00 05/19/17 20:21 SUBQ 5,000 unit BID JONA Administration Sodium Chloride 1,000 mls @ 100 mls/hr 05/16/17 22:00 05/19/17 20:22 Normal Saline 0.9% IV 100 mls/hr .Q10H JONA Administration Cefepime HCl 2 gm/ Sodium 100 mls @ 200 mls/hr 05/17/17 09:00 05/19/17 20:22 Chloride IV 200 mls/hr BID JONA Administration Levofloxacin 150 mls @ 100 mls/hr 05/18/17 21:00 05/18/17 22:49 Levaquin 750 Mg/150 Ml IV 100 mls/hr Q48H JONA Administration Vancomycin HCl 1 gm/ Sodium 250 mls @ 167 mls/hr 05/18/17 02:00 05/20/17 02:09 Chloride IV 167 mls/hr Q24H JONA Administration Ondansetron HCl 4 mg 05/16/17 21:38 05/17/17 01:01 Zofran Odt TL 4 mg Q6HR PRN Administration Nausea / Vomiting Polyethylene Glycol 17 gm 05/17/17 09:00 05/19/17 14:52 Miralax PO Not Given DAILY JONA Sodium Chloride 10 ml 05/16/17 22:00 05/20/17 06:28 Normal Saline Flush 0.9% IVP Not Given Q8HR JONA Tramadol HCl 50 mg 05/17/17 14:40 05/20/17 02:18 Ultram PO 50 mg Q4HR PRN Administration PAIN - Lab Result Fish Bone Diagrams: 05/19/17 05:27 05/20/17 01:34 - Additional Planning Condition/Complexity: Improved My Orders: My Active Orders 05/20/17 Blood Culture [CULTURE, BLOOD #1] [RM] Routine 05/20/17 08:00 Levothyroxine [Synthroid] 50 mcg PO QDAC 05/20/17 09:[address] [Depakote Dr] 250 mg PO BID FLUoxetine [PROzac] 40 mg PO DAILY 05/21/17 BMP - BASIC METABOLIC PANEL [CHEM] Routine CBC - COMP BLD CT W/AUTO DIFF [HEME] Routine Plan Discussed with:: Patient, Other (patient does not think I need to contact her family today. " tomorrow") Time Spent: 31-60 minutes Subjective - Subjective Patient Reports: No Complaints Nursing Reports: Other (patient thinks she can go back today) Objective Vital Signs: Vital Signs - 24 hr 05/19/17 05/19/17 05/19/17 08:00 08:38 17:05 Temperature 36.8 C 36.7 C Heart Rate [ 89 91 Brachial] Respiratory 18 16 Rate Blood Pressure 148/85 H 145/75 H [Left Brachial artery] O2 Saturation 93 96 96 05/19/17 05/20/17 20:34 00:08 Temperature 36.9 C Heart Rate [ 90 Brachial] Respiratory 16 Rate Blood Pressure 135/74 H [Left Brachial artery] O2 Saturation 94 95 Oxygen O2 Source [Without Activity] Nasal cannula O2 Source Nasal cannula I&O (Last 24 Hrs): Intake and Output Totals x24h 05/18/17 05/19/17 05/20/17 23:59 23:59 23:59 Intake Total 1310 1627 941 Balance 1310 1627 941 General: Alert, Oriented x3 HEENT: Atraumatic, Mucous membr. moist/pink Neck: Supple Cardiovascular: Regular rate, Normal S1, Normal S2 Respiratory: Chest non-tender, Other (decreased @ LLL; no wheezes) Abdomen: Normal bowel sounds, Soft Extremities: No clubbing, No cyanosis, No edema - Results Results: Laboratory Results WBC 13.8 x10^3/uL (4.8-10.8) H 05/19/17 05:27 RBC 3.86 10^6/uL (4.20-5.40) L 05/19/17 05:27 Hgb 10.6 g/dL (12.0-16.0) L 05/19/17 05:27 Hct 32.6 % (37.0-47.0) L 05/19/17 05:27 MCV 84.6 fL (81.0-99.0) 05/19/17 05:27 MCH 27.6 pg (27.0-31.0) 05/19/17 05:27 MCHC 32.7 g/dL (32.0-36.0) 05/19/17 05:27 RDW 18.0 % (12.0-15.0) H 05/19/17 05:27 Plt Count 470 10^3/uL (130-450) H 05/19/17 05:27 MPV 6.4 fL (7.9-10.8) L 05/19/17 05:27 Neut # 11.1 10^3/uL (1.5-6.6) H 05/19/17 05:27 Lymph # 1.0 10^3/uL (1.5-3.5) L 05/19/17 05:27 [place] # 1.1 10^3/uL (0.0-1.0) H 05/19/17 05:27 Eos # 0.6 10^3/uL (0.0-0.7) 05/19/17 05:27 Baso # 0.1 10^3/uL (0.0-0.1) 05/19/17 05:27 Absolute Nucleated RBC 0.00 x10^3/uL 05/19/17 05:27 Total Counted 100 05/18/17 13:14 Band Neuts % (Manual) Not Reportable 05/19/17 05:27 Myelocytes % 4 % (-0) H 05/16/17 19:31 Neutrophils # (Manual) 18.6 10^3/uL (1.5-6.6) H 05/18/17 13:14 Lymphocytes # (Manual) 1.5 10^3/uL (1.5-3.5) 05/18/17 13:14 Monocytes # (Manual) 1.1 10^3/uL (0.0-1.0) H 05/18/17 13:14 Eosinophils # (Manual) 0.2 10^3/uL (0-0.7) 05/18/17 13:14 Basophils # (Manual) 0.2 10^3/uL (0-0.1) H 05/16/17 19:31 Nucleated RBCs 0.0 /100WBC 05/19/17 05:27 Differential Comment MANUAL=AUTO DIFF 05/19/17 05:27 Manual Slide Review Indicated 05/18/17 06:30 WBC Morphology 1+ REACTIVE LYMPHS (NORMAL) 1+ TOXIC GRANULATION (NORMAL) 06:30 WBC Morphology 1+ REACTIVE LYMPHS (NORMAL) 1+ TOXIC GRANULATION (NORMAL) 06:30 Platelet Estimate INCREASED (>450,000) (NORMAL) 05/19/17 05:27 Platelet Morphology NORMAL APPEARANCE (NORMAL) 05/19/17 05:27 RBC Morph Micro Appear 1+ ANISOCYTOSIS (NORMAL) 1+ OVALOCYTES (NORMAL) 1+ HYPOCHROMASIA (NORMAL) 05/18/17 13:14 RBC Morph Micro Appear 1+ ANISOCYTOSIS (NORMAL) 1+ OVALOCYTES (NORMAL) 1+ HYPOCHROMASIA (NORMAL) 05/18/17 13:14 RBC Morph Micro Appear NORMAL APPEARANCE (NORMAL) 05/19/17 05:27 Sodium 138 mmol/L (135-145) 05/20/17 01:34 Potassium 3.5 mmol/L (3.5-5.0) 05/20/17 01:34 Chloride 109 mmol/L (101-111) 05/20/17 01:34 Carbon Dioxide 22 mmol/L (21-32) 05/20/17 01:34 Anion Gap 7.0 (6-13) 05/20/17 01:34 BUN 10 mg/dL (6-20) 05/20/17 01:34 Creatinine 0.9 mg/dL (0.4-1.0) 05/20/17 01:34 Estimated GFR (MDRD) 61 (>89) L 05/20/17 01:34 Glucose 117 mg/dL (70-100) H 05/20/17 01:34 Glycated Hemoglobin 7.1 % (4.6-6.2) H 05/17/17 06:18 Estim Average Glucose 157 (70-100) H 05/17/17 06:18 Lactic Acid 1.0 mmol/L (0.5-2.2) 05/16/17 19:31 Calcium 8.3 mg/dL (8.5-10.3) L 05/20/17 01:34 Phosphorus 2.5 mg/dL (2.5-4.6) 05/17/17 06:18 Total Bilirubin 0.4 mg/dL (0.2-1.0) 05/20/17 01:34 AST 23 IU/L (10-42) 05/20/17 01:34 ALT 16 IU/L (10-60) 05/20/17 01:34 Alkaline Phosphatase 93 IU/L (42-121) 05/20/17 01:34 Total Protein 6.8 g/dL (6.7-8.2) 05/20/17 01:34 Albumin 2.1 g/dL (3.2-5.5) L 05/20/17 01:34 Globulin 4.7 g/dL (2.1-4.2) H 05/20/17 01:34 Albumin/Globulin Ratio 0.4 (1.0-2.2) L 05/20/17 01:34 Triglycerides 98 mg/dL (-149) 05/17/17 06:18 Cholesterol 79 mg/dL (-199) 05/17/17 06:18 LDL Cholesterol, Calc 37 mg/dL (-129) 05/17/17 06:18 VLDL Cholesterol 20 mg/dL 05/17/17 06:18 HDL Cholesterol 22 mg/dL (60-) L 05/17/17 06:18 LDL/HDL Ratio 1.7 (<4.4) 05/17/17 06:18 Cholesterol/HDL Ratio 3.6 (<4.4) 05/17/17 06:18 TSH 10.01 uIU/mL (0.34-5.60) H 05/17/17 06:18 Free T4 0.98 ng/dL (0.58-1.64) 05/17/17 06:18 Urine Color YELLOW 05/16/17 19:38 Urine Clarity HAZY (CLEAR) 05/16/17 19:38 Urine pH 6.0 PH (5.0-7.5) 05/16/17 19:38 Ur Specific [place] 1.020 (1.002-1.030) 05/16/17 19:38 Urine Protein 30 mg/dL (NEGATIVE) H 05/16/17 19:38 Urine Glucose (UA) NEGATIVE mg/dL (NEGATIVE) 05/16/17 19:38 Urine Ketones TRACE mg/dL (NEGATIVE) 05/16/17 19:38 Urine Occult Blood SMALL (NEGATIVE) H 05/16/17 19:38 Urine Nitrite NEGATIVE (NEGATIVE) 05/16/17 19:38 Urine Bilirubin NEGATIVE (NEGATIVE) 05/16/17 19:38 Urine Urobilinogen 0.2 (NORMAL) E.U./dL (NORMAL) 05/16/17 19:38 Ur Leukocyte Esterase TRACE (NEGATIVE) H 05/16/17 19:38 Urine RBC 6-10 /HPF (0-5) H 05/16/17 19:38 Urine WBC 11-25 /HPF (0-5) H 05/16/17 19:38 Ur Squamous Epith Cells FEW Squamous (<= Few) 05/16/17 19:38 Urine Bacteria Moderate /HPF (None Seen) H 05/16/17 19:38 Ur Microscopic Review INDICATED 05/16/17 19:38 Urine Culture Comments INDICATED 05/16/17 19:38 Last Dose Date 05/18/17 05/20/17 01:34 Last Dose Time 0151 05/20/17 01:34 Vancomycin Trough 18.8 ug/mL (5.0-15.0) H 05/20/17 01:34 Valproic Acid 36.9 ug/mL 05/16/17 19:30 Blood Type O POSITIVE 05/17/17 11:47 Blood Type Recheck O POSITIVE 05/17/17 06:18 Antibody Screen NEGATIVE 05/17/17 11:47 Crossmatch IS Only See Detail 05/17/17 11:47
[2017-05-20] MEDS: HEPARIN 5,000 UNIT/ML VIAL SUBQ SCH ×2 (08:18→20:08)
[2017-05-20] MEDS: LEVOTHYROXINE 25 MCG TABLET PO SCH (08:20)
[2017-05-20] MEDS: FLUoxetine 10 MG CAPSULE PO SCH (08:20)
[2017-05-20] MEDS: DIVALPROEX DR 250 MG TABLET PO SCH ×2 (08:20→20:00)
[2017-05-20] MEDS: CEFEPIME 2 GM in SODIUM CHLORIDE 0.9% MINIBAG 100 ML IV SCH (08:25)
[2017-05-20] MEDS: POLYETHYLENE GLYCOL 3350 17 GM PACKET PO SCH (08:32)
[2017-05-20] MEDS: SODIUM CHLORIDE 0.9% 1,000 ML IV SCH ×2 (12:00→20:00)
[2017-05-20] MEDS: DOXYCYCLINE 100 MG TABLET PO SCH ×2 (12:56→20:00)
[2017-05-20] MEDS: SACCHAROMYCES BOULARDII 250 MG CAPSULE PO SCH (19:12)
[2017-05-20] MEDS: ATORVASTATIN 40 MG TABLET PO SCH (20:00)
[2017-05-21] MEDS: SODIUM CHLORIDE FLUSH 0.9% 10 ML SYRINGE IVP SCH (06:14)
[2017-05-21 06:31] LABS: ALBUMIN/GLOBULIN RATIO 0.5 (1.0-2.2); BILIRUBIN,TOTAL 0.5 mg/dL (0.2-1.0); CALCIUM 8.3 mg/dL (8.5-10.3); CREATININE 0.9 mg/dL (0.4-1.0); TOTAL PROTEIN 6.5 g/dL (6.7-8.2)
[2017-05-21] MEDS: LEVOTHYROXINE 25 MCG TABLET PO SCH (06:50)
[2017-05-21] MEDS: SACCHAROMYCES BOULARDII 250 MG CAPSULE PO SCH (07:52)
[2017-05-21] MEDS: SODIUM CHLORIDE 0.9% 1,000 ML IV SCH (07:53)
[2017-05-21] MEDS ORDERED: POTASSIUM CHLORIDE 10 MEQ CAPSULE PO ONE (08:00)
[2017-05-21] MEDS: HEPARIN 5,000 UNIT/ML VIAL SUBQ SCH (08:54)
[2017-05-21] MEDS: DIVALPROEX DR 250 MG TABLET PO SCH (08:56)
[2017-05-21] MEDS: DOXYCYCLINE 100 MG TABLET PO SCH (08:57)
[2017-05-21] MEDS: FLUoxetine 10 MG CAPSULE PO SCH (08:57)
[2017-05-21] MEDS: POLYETHYLENE GLYCOL 3350 17 GM PACKET PO SCH (08:58)
[2017-05-21] MEDS: traMADol 50 MG TABLET PO PRN (10:21)
--- NOTE | 2017-05-21 10:51 | Discharge Plan ---
Discharge Plan Disposition: 03 SNF DC/Xfer Condition: Good Diet: Regular Activity Restrictions: No Restrictions Additional Instructions or Follow Up instructions: See NH order for details. No Smoking: If you smoke, Please STOP! Call for help.
--- NOTE | 2017-05-21 11:59 | DISCHARGE SUMMARY ---
"Discharge Summary Admit Date: 05/16/17 Discharge Date: 05/21/17 Discharging Provider: SEAN Lin Primary Care Provider: SEAN Padilla Code Status: Do Not Attempt Resuscitation Condition at Discharge: Good Discharge Disposition: SNF DC/Xfer Discharge Facility Name: [facility] - DIAGNOSES Admission Diagnoses: LLL PNA - health care acquired and recently on mult abx CKD - at baseline (Cr=1.3) Hx of hypothyroidism Hx of HTN h/o CVA Chronic anemia, at baseline per our system h/o oropharyngeal cancer - does not appear to have acute issues Discharge Diagnoses with Status of Each Condition: (1) Pneumonia: improving; on Levaquin and Doxycycline; consider f/u CXR in 4-6 weeks (2) UTI (urinary tract infection): culture is positive for enterococcus. on Levaquin; improving (3) Bacteremia: positive blood culture with MRSE (Staph Epidermidis); likely due to contamination; repeat culture negative x 1 day. CKD - at baseline (Cr=1.3) hypothyroidism: on thyroid Hx of HTN h/o CVA on plavix Chronic anemia, at baseline depression-- stable hypokalemia-- on supplement hyperlipidmia-- stable acute respiratory failure with hypoxic to 78%: resolved - HPI History of Present Illness: 72yoF with h/o oropharyngeal cancer, anemia, CKD, CVA and dementia. Pt resides at halfway. On 05/04 she was diagnosed with UTI growing a fairly resistant morganella, and given 3days of cipro. On 05/12 she was diagnosed with PNA and started on Azithromycin with no improvement. on the date of admission, she was noted to have a fever and brought to the ER. Here she was found to have a LLL infiltrate on CXR, elevated WBC wtih left shift, hypoxic to 78% and tachycardic. she was then admitted. please see H and P done by Andria Mcallister - CONSULTS | PROCEDURES Consultations: none Procedures: none - HOSPITAL COURSE Hospital Course: patient was treated as HCAP with vancomycin, Cefepime and Levoquin. she also received nebulizer treatment. blood culture and sputum culture were done. clinically she has improved; she has been off oxygen. her Oxygen saturation maintains at 90% above on RA; she had one positive blood culture with MRSE ( Staph Epidernidis) form one bottle, likely contaminated. repeat blood culture is negative so far. sputum culture is nagative. her UTI this time grew enterococcus. sensitive to Levaquin; based on her clinical condition; her antibiotics were changed to oral levaquin and Doxycycline to cover her UTI and PNA. patient was seen today; no fever, chills, shortness of breath, chest pain, diarrhea. discharge plan was discussed with her. questions and concerns were answered. - ALLERGIES Allergies/Adverse Reactions: Allergies Allergy/AdvReac Type Severity Reaction Status Date / Time codeine Allergy Unknown Verified 05/16/17 19:02 - MEDICATIONS Home Medications: Ambulatory Orders Medication Instructions Recorded Confirmed FLUoxetine [PROzac] 40 mg PO DAILY 11/10/13 05/17/17 Atorvastatin [Lipitor] 80 mg PO DAILY 05/16/17 05/17/17 Clopidogrel [Plavix] 75 mg PO DAILY 05/16/17 05/18/[address] [Depakote Dr] 250 mg PO BID 05/17/17 05/17/17 Levothyroxine [Synthroid] 50 mcg PO QDAC 05/17/17 05/17/17 Nystatin [Mycostatin] 2 ml PO Q4H 05/17/17 05/17/17 Oxycodone HCl/Acetaminophen 1 each PO Q6H PRN 05/17/17 05/17/17 [Oxycodone-Acetaminophen 5-325] Home Medications Other | Comments: Doxycycline 100 mg po BID x 5 days Levaquin 750mg po every 48 hours - PHYSICAL EXAM AT DISCHARGE General Appearance: positive: No acute distress, Alert Eyes Bilateral: positive: Normal inspection, PERRL, Conjunctivae nml Respiratory: positive: No respiratory distress, Other (few wheezes noted @ left base, otherwise clear) Cardiovascular: positive: Regular rate & rhythm Abdomen: positive: Non-tender, Nml bowel sounds Skin: positive: Color nml, No rash Extremities: positive: Non-tender, Full ROM Neurologic/Psychiatric: positive: Oriented x3 - LABS Result Diagrams: 05/19/17 05:27 05/21/17 05:16 - DIAGNOSTIC IMAGING Diagnostic Imaging Results: Final report reviewed Diagnostic Imaging Results Comments: CXR 05/16/17-- LLL PNA CT of chest 05/17/17-- LLL PNA; small left and trace right pleural effusion CT of abdomen/pelvis 05/17/17-- mild to moderate colonic diverticulosis without diverticulitis. - FOLLOW UP Follow Up: PCP repeat CXR in 4-6 weeks; see NH order for details - TIME SPENT Time Spent in Discharge (Minutes): 37"
[2017-05-21 12:14] VITALS: BP 153/81
== END 2017-05-21 13:00 | DRG 193 ==
LOC: EDBD → EDUNIT# → ED 18:55 → MS2 21:38
PROVIDERS: ADMIT Internal Medicine; ATTEND Nurse Practitioner
PROC: 30233N1 Transfusion of Nonautologous Red Blood Cells into Peripheral Vein, Percutaneous Approach (ICD-10-PCS; principal; 2017-05-17)
DX: J18.1 Lobar pneumonia, unspecified organism (principal); R09.02 Hypoxemia; J96.01 Acute respiratory failure with hypoxia; N39.0 Urinary tract infection, site not specified; Y95 Nosocomial condition; B95.2 Enterococcus as the cause of diseases classified elsewhere; E03.9 Hypothyroidism, unspecified; I12.9 Hypertensive chronic kidney disease with stage 1 through stage 4 chronic kidney disease, or unspecified chronic kidney disease; N18.9 Chronic kidney disease, unspecified; D64.9 Anemia, unspecified; F32.9 Major depressive disorder, single episode, unspecified; E87.6 Hypokalemia; G44.041 Chronic paroxysmal hemicrania, intractable; E78.5 Hyperlipidemia, unspecified; F03.90 Unspecified dementia, unspecified severity, without behavioral disturbance, psychotic disturbance, mood disturbance, and anxiety; K57.30 Diverticulosis of large intestine without perforation or abscess without bleeding; Z66 Do not resuscitate; Z79.02 Long term (current) use of antithrombotics/antiplatelets; Z87.440 Personal history of urinary (tract) infections; Z85.819 Personal history of malignant neoplasm of unspecified site of lip, oral cavity, and pharynx; Z86.73 Personal history of transient ischemic attack (TIA), and cerebral infarction without residual deficits
CPT/HCPCS: 36415; 71020; 71250; 74176; 80048; 80053; 80061; 80069; 80164; 81001; 81003; 82270; 83036; 83605; 84439; 84443; 85014; 85018; 85025; 86850; 86900; 86901; 86920; 87040; 87070; 87077; 87086; 87205; 96365; 96366; 96368; 96372; 99284; 99285

== ENCOUNTER 2017-05-27 11:50 | Outpatient (CLI) | payer MEDICARE, OTHER ==
[2017-05-27 13:31] LABS: BASOPHILS # (AUTO) 0.1 10^3/uL (0.0-0.1); BASOPHILS % (AUTO) 1.5 %; EOSINOPHILS # (AUTO) 0.1 10^3/uL (0.0-0.7); EOSINOPHILS % (AUTO) 1.6 %; HCT - HEMATOCRIT 39.3 % (37.0-47.0); HGB - HEMOGLOBIN 12.9 g/dL (12.0-16.0); LYMPHOCYTES # (AUTO) 0.9 10^3/uL (1.5-3.5); LYMPHOCYTES % (AUTO) 12.7 %; MEAN CORPUSCULAR HEMOGLOBIN 27.8 pg (27.0-31.0); MEAN CORPUSCULAR HGB CONC 32.9 g/dL (32.0-36.0); MEAN CORPUSCULAR VOLUME 84.5 fL (81.0-99.0); MONOCYTES # (AUTO) 0.7 10^3/uL (0.0-1.0); MONOCYTES % (AUTO) 9.7 %; NEUTROPHILS # (AUTO) 5.5 10^3/uL (1.5-6.6); NEUTROPHILS % (AUTO) 74.5 %; RED BLOOD COUNT 4.65 10^6/uL (4.20-5.40); RED CELL DISTRIBUTION WIDTH 18.4 % (12.0-15.0); UNCORRECTED WHITE BLOOD COUNT 7.4 x10^3/uL; WHITE BLOOD COUNT 7.4 x10^3/uL (4.8-10.8)
[2017-05-27 13:40] LABS: CALCIUM 9.9 mg/dL (8.5-10.3); CREATININE 1.3 mg/dL (0.4-1.0); POTASSIUM 3.9 mmol/L (3.5-5.0)
== END 2017-05-27 11:51 | disposition home or self-care (01) ==
LOC: LAB.R 11:50
DX: I10 Essential (primary) hypertension (principal); D64.9 Anemia, unspecified
CPT/HCPCS: 80048; 85025

== ENCOUNTER 2017-06-03 21:36 | Outpatient (CLI) | payer MEDICARE, OTHER | END 2017-06-03 21:37 | disposition home or self-care (01) | LOC: LAB.R 21:36 | DX: E03.9 Hypothyroidism, unspecified (principal) | CPT/HCPCS: 84443 ==

== ENCOUNTER 2017-07-05 08:00 | Outpatient (CLI) | payer MEDICARE, OTHER ==
[2017-07-05 16:49] LABS: BILIRUBIN,TOTAL 0.4 mg/dL (0.2-1.0); CALCIUM 9.7 mg/dL (8.5-10.3); CREATININE 1.4 mg/dL (0.4-1.0); POTASSIUM 4.3 mmol/L (3.5-5.0); TOTAL PROTEIN 7.9 g/dL (6.7-8.2)
== END 2017-07-05 23:59 | disposition home or self-care (01) ==
LOC: LAB.R 08:00
DX: I63.02 Cerebral infarction due to thrombosis of basilar artery (principal); E03.9 Hypothyroidism, unspecified
CPT/HCPCS: 80053; 84443

== ENCOUNTER 2017-09-09 17:28 | Outpatient (CLI) | payer MEDICARE, OTHER | END 2017-09-09 17:29 | disposition critical access hospital (66) | LOC: EMS 17:28 | PROVIDERS: ATTEND Surgery | DX: R10.9 Unspecified abdominal pain (principal) | CPT/HCPCS: A0425; A0429 ==

== ENCOUNTER 2017-09-09 17:32 | Inpatient (IN) | payer MEDICARE, OTHER ==
[2017-09-09] MEDS ORDERED: ONDANSETRON 4 MG/2 ML VIAL IVP STA (17:39)
[2017-09-09] MEDS ORDERED: MORPHINE 2 MG/ML SYRINGE IVP STA ×2 (17:39→23:15)
[2017-09-09] MEDS ORDERED: SODIUM CHLORIDE 0.9% 1,000 ML IV ONE ×2 (17:39→23:48)
--- NOTE | 2017-09-09 17:42 | ED Physician Documentation ---
PD HPI ABD PAIN - Stated complaint Stated Complaint: ABD PX - Chief complaint Chief Complaint: Abd Pain - History obtained from History obtained from: Patient - History of Present Illness Timing - onset: Other (This is a very pleasant 72-year-old woman with history of , Anemia, chronic kidney disease, CVA with left-sided deficits. She has had almost a week worth of left lower quadrant pain that comes and goes with mild nausea and mild constipation but no hematochezia or melena. She has a history of appendectomy and cholecystectomy, possibly hysterectomy per her she seems a little confused on that point.) Review of Systems Ten Systems: 10 systems reviewed and negative Constitutional: reports: Reviewed and negative Cardiac: reports: Reviewed and negative Respiratory: reports: Reviewed and negative PD PAST MEDICAL HISTORY - Past Medical History Cardiovascular: Hypertension Neuro: Dementia, CVA, Headache/migraine Endocrine/Autoimmune: HyPOthyroidism : Renal insuffiency - Past Surgical History Past Surgical History: Yes General: Cholecystectomy, Appendectomy - Present Medications Home Medications: Ambulatory Orders Medication Instructions Recorded Confirmed FLUoxetine [PROzac] 40 mg PO DAILY 11/10/13 05/17/17 Atorvastatin [Lipitor] 80 mg PO DAILY 05/16/17 05/17/17 Clopidogrel [Plavix] 75 mg PO DAILY 05/16/17 05/18/[address] [Depakote Dr] 250 mg PO BID 05/17/17 05/17/17 Levothyroxine [Synthroid] 50 mcg PO QDAC 05/17/17 05/17/17 Nystatin [Mycostatin] 2 ml PO Q4H 05/17/17 05/17/17 Oxycodone HCl/Acetaminophen 1 each PO Q6H PRN 05/17/17 05/17/17 [Oxycodone-Acetaminophen 5-325] - Allergies Allergies/Adverse Reactions: Allergies Allergy/AdvReac Type Severity Reaction Status Date / Time codeine Allergy Unknown Verified 09/09/17 17:38 - Social History Does the pt smoke?: No Smoking Status: Never smoker Does the pt drink ETOH?: No Does the pt have substance abuse?: No - Family History Family history: reports: Non contributory - Immunizations Immunizations are current?: Yes - POLST Patient has POLST: Yes PD ED PE NORMAL - Vitals Vital signs reviewed: Yes - General General: Alert and oriented X 3, No acute distress - HEENT HEENT: PERRL, EOMI - Neck Neck: Supple, no meningeal sign, No bony TTP - Cardiac Cardiac: RRR, No murmur - Respiratory Respiratory: No respiratory distress, Clear bilaterally - Abdomen Abdomen: Other (Mild LLQ TTP without G/R) - Rectal Rectal: Other (Brown guaiac neg stool) - Back Back: No CVA TTP, No spinal TTP - Derm Derm: Normal color, Warm and dry - Extremities Extremities: No edema, No calf tenderness / cord - Neuro Neuro: Alert and oriented X 3, Normal speech - Psych Psych: Normal mood, Normal affect Results - Vitals Vitals: Vital Signs - 24 hr 09/09/17 17:35 Temperature 36.5 C Heart Rate 100 Respiratory 16 Rate Blood Pressure 130/88 H O2 Saturation 98 Oxygen O2 Source [Without Activity] Nasal cannula O2 Source Room air - Labs Labs: Laboratory Tests 09/09/17 09/09/17 09/09/17 17:45 17:45 17:45 WBC 12.8 H RBC 2.30 L Hgb 6.5 L* Hct 20.5 L MCV 89.4 MCH 28.4 MCHC 31.7 L RDW 16.4 H Plt Count 472 H MPV 6.3 L Neut # 9.7 H Lymph # 1.1 L [place] # 1.5 H Eos # 0.4 Baso # 0.1 Absolute Nucleated RBC 0.00 Nucleated RBC % 0.0 Sodium 138 Potassium 4.4 Chloride 98 L Carbon Dioxide 28 Anion Gap 12.0 BUN 22 H Creatinine 1.1 H Estimated GFR (MDRD) 49 L Glucose 158 H Calcium 9.5 Total Bilirubin 0.3 AST 20 ALT 11 Alkaline Phosphatase 77 Total Protein 7.7 Albumin 2.9 L Globulin 4.8 H Albumin/Globulin Ratio 0.6 L Lipase 41 Last Dose Date UNK Last Dose Time UNK Valproic Acid < 10.0 Blood Type Antibody Screen Crossmatch IS Only 09/09/17 18:18 WBC RBC Hgb Hct MCV MCH MCHC RDW Plt Count MPV Neut # Lymph # [place] # Eos # Baso # Absolute Nucleated RBC Nucleated RBC % Sodium Potassium Chloride Carbon Dioxide Anion Gap BUN Creatinine Estimated GFR (MDRD) Glucose Calcium Total Bilirubin AST ALT Alkaline Phosphatase Total Protein Albumin Globulin Albumin/Globulin Ratio Lipase Last Dose Date Last Dose Time Valproic Acid Blood Type O POSITIVE Antibody Screen NEGATIVE Crossmatch IS Only See Detail - Rads (name of study) CT A/P Radiology: EMP read contemporaneously (Trace right and small left pleural effusion with dense left lower lobe consolidation, concern for potential necrosis or mass. She has early diverticulitis without complicating findings, she has bile duct dilatation, but no elevated liver enzymes.) PD MEDICAL DECISION MAKING - ED course ED course: 72-year-old woman presents from half-way with left lower quadrant pain and is found to have diverticulitis, this is in the setting of elevated white blood cell count and concern for pneumonia in the left lower lobe. She is very anemic , guaiac negative. She will be transfused 2 units. She is started on Levaquin and Flagyl for diverticulitis, this should cover the pneumonia as well. Note made of potential concern for mass on the CT and needle in the left lower lobe. This was discussed with the patient, she is not sure at this juncture whether she would like further workup on this or not, she would like some time to consider it. I offered to call family, but she would prefer to update in them in the morning when they visit the hospital. Departure - Departure Disposition: 66 [facility] DC/Xfer Clinical Impression: Diverticulitis Pneumonia Qualifiers: Pneumonia type: due to unspecified organism Laterality: left Lung location: lower lobe of lung Qualified Code(s): J18.1 - Lobar pneumonia, unspecified organism Anemia Qualifiers: Anemia type: unspecified type Qualified Code(s): D64.9 - Anemia, unspecified Condition: Serious
[2017-09-09 17:52] LABS: BASOPHILS # (AUTO) 0.1 10^3/uL (0.0-0.1); BASOPHILS % (AUTO) 0.5 %; EOSINOPHILS # (AUTO) 0.4 10^3/uL (0.0-0.7); EOSINOPHILS % (AUTO) 2.9 %; HCT - HEMATOCRIT 20.5 % (37.0-47.0); HGB - HEMOGLOBIN 6.5 g/dL (12.0-16.0); LYMPHOCYTES # (AUTO) 1.1 10^3/uL (1.5-3.5); MEAN CORPUSCULAR HEMOGLOBIN 28.4 pg (27.0-31.0); MEAN CORPUSCULAR HGB CONC 31.7 g/dL (32.0-36.0); MEAN CORPUSCULAR VOLUME 89.4 fL (81.0-99.0); MEAN PLATELET VOLUME 6.3 fL (7.9-10.8); MONOCYTES # (AUTO) 1.5 10^3/uL (0.0-1.0); MONOCYTES % (AUTO) 11.7 %; NEUTROPHILS # (AUTO) 9.7 10^3/uL (1.5-6.6); NEUTROPHILS % (AUTO) 75.9 %; RED CELL DISTRIBUTION WIDTH 16.4 % (12.0-15.0); UNCORRECTED WHITE BLOOD COUNT 12.8 x10^3/uL; WHITE BLOOD COUNT 12.8 x10^3/uL (4.8-10.8)
[2017-09-09 18:03] LABS: ALBUMIN/GLOBULIN RATIO 0.6 (1.0-2.2); BILIRUBIN,TOTAL 0.3 mg/dL (0.2-1.0); CALCIUM 9.5 mg/dL (8.5-10.3); CREATININE 1.1 mg/dL (0.4-1.0); POTASSIUM 4.4 mmol/L (3.5-5.0); TOTAL PROTEIN 7.7 g/dL (6.7-8.2)
[2017-09-09] MEDS ORDERED: MORPHINE 2 MG/ML SYRINGE ONE (18:12)
[2017-09-09] MEDS ORDERED: ONDANSETRON 4 MG/2 ML VIAL ONE (18:12)
[2017-09-09] MEDS ORDERED: IOPAMIDOL-300 100 ML VIAL ONE (18:14)
[2017-09-09] MEDS ORDERED: IOPAMIDOL-300 100 ML VIAL IVP ONE (18:48)
--- NOTE | 2017-09-09 19:31 | CT Preliminary Report ---
Exam: CT ABDOMEN/PELVIS W/ IMPRESSION: 1. Trace right and small left pleural effusion. Dense left lower lobe consolidation. Debris is presen t in the bronchi in the left lower lobe. Findings could be due to pneumonia or aspiration. Additional rounded lesion in the medial left lower lobe with central areas of fluid measuring 2.1 cm. In the se tting of pneumonia, superimposed lung necrosis or a mass is not excluded. 2. Sigmoid and left colon diverticulosis with minimal distal left and sigmoid pericolonic inflammatio n. Early diverticulitis is on the differential given the provided history. No complication such as pe rforation, abscess or obstruction. 3. Gallbladder surgically absent. Dilated common bile duct without an obstructing lesion. Intrahepati c bile duct dilation is noted. Correlate for history of dysfunctional liver enzymes. If present, katerina mmend further evaluation with MRI. In absence of enzymatic abnormality, such that this represents pre vious cholecystectomy findings. [facility] SITE ID: [id number]
[2017-09-09] MEDS ORDERED: metroNIDAZOLE 500 MG/100 ML 500 MG/100 ML BAG IV ONE (19:44)
[2017-09-09] MEDS ORDERED: levoFLOXacin 500 MG/100 ML 500 MG/100 ML BAG IV SCH (19:44)
--- NOTE | 2017-09-09 20:25 | CT Report ---
EXAM: CT ABDOMEN AND PELVIS EXAM DATE: 09/09/2017 06:35 p.m. CLINICAL HISTORY: IV only, left lower quadrant pain. COMPARISONS: None. TECHNIQUE: Routine helical CT imaging was performed through the abdomen and pelvis. IV contrast: Isov ue-300 90 mL. Enteric contrast: No. Reconstructions: Coronal and sagittal. In accordance with CT protocol optimization, one or more of the following dose reduction techniques w ere utilized for this exam: automated exposure control, adjustment of mA and/or KV based on patient s ize, or use of iterative reconstructive technique. FINDINGS: Lung Bases: Small incidental hiatal hernia is noted. No cardiac enlargement or pericardial effusion. Trace right and small left pleural effusion. Dense left lower lobe consolidation with fluid in the ai rway is noted. There is a rounded low-density region in the medial left lower lobe measuring 1.8 x 1. 8 x 2.1 cm. This is more conspicuous on the postcontrast-enhanced CT than on the previous noncontrast -enhanced CTs performed on 05/17/2017. Liver: No mass is noted. Persistent moderate intrahepatic bile duct dilation. Gallbladder/Bile Ducts: Gallbladder is surgically absent. Common bile duct measures up to 1.2 cm. No common bile duct stone or mass. Spleen: Small splenic cyst, image 13. No splenic mass. Pancreas: Mild pancreatic atrophy with mild pancreatic duct prominence. No mass is noted in the pancr eatic head. No abnormal pancreatic calcifications or peripancreatic inflammation. Adrenal Glands: Normal. Kidneys: Small focal cortical areas of scarring are noted in both kidneys. Simple right upper pole re nal cyst without concerning features. No masses or hydronephrosis. Peritoneal Cavity/Bowel: Normal. No free fluid, free air or adenopathy. No masses or acute inflammato ry process. Diffuse colonic diverticulosis most severely affecting the sigmoid colon. The sigmoid col on is incompletely distended which likely accentuates the wall thickness. Mild to minimal adjacent in flammation is noted. Appendix is not seen. No focal right lower quadrant inflammation. Pelvic Organs: Normal bladder. The uterus is absent. No adnexal abnormalities. No pelvic mass, adenop athy or collection. Vasculature: Patchy calcified atheromatous plaques are present in the abdominal aorta and branch vess els. No aneurysm. Normal IVC. Bones: No osteoblastic or osteolytic lesions. Moderate L4-L5 disk narrowing with grade 2 L4 and L5 an terolisthesis. Other: None. IMPRESSION: 1. Trace right and small left pleural effusion. Dense left lower lobe consolidation. Debris is presen t in the bronchi in the left lower lobe. Findings could be due to pneumonia or aspiration. Additional rounded region in the medial left lower lobe with central areas of fluid measuring 2.1 cm. In the se tting of pneumonia, superimposed lung necrosis or lung abscess not excluded. 2. Sigmoid and left colon diverticulosis with minimal distal left and sigmoid pericolonic inflammatio n. Early diverticulitis is on the differential given the provided history. No complication such as pe rforation, abscess or obstruction. 3. Gallbladder is surgically absent. Dilated common bile duct without an obstructing lesion. Intrahep atic bile duct dilation is noted. Correlate for history of dysfunctional liver enzymes. If present, r ecommend further evaluation with MRI. In the absence of enzymatic abnormality, suspect that this repr esents previous cholecystectomy findings. [facility] Referring Provider Line: [phone] SITE ID: [id number]
[2017-09-09] MEDS ORDERED: ONDANSETRON 4 MG/2 ML VIAL IVP PRN (20:34)
[2017-09-09] MEDS ORDERED: oxyCODONE/ACET 5/325 Prepack 4 PO PRN (20:46)
[2017-09-09] MEDS ORDERED: DIVALPROEX DR 125 MG TABLET PO SCH (21:00)
[2017-09-09 21:02] LABS: IMMATURE RETIC FRACTION 0.51; RED BLOOD COUNT 2.26 10^6/uL (4.20-5.40)
[2017-09-09 21:23] LABS: IRON 7 ug/dL (28-170); TOTAL IRON BINDING CAPACITY 266 ug/dL (250-450); TRANSFERRIN 190 mg/dL (192-382)
[2017-09-09 21:37] LABS: FOLATE 13.49 ng/mL (5.90 - >24.8)
[2017-09-09] MEDS: SODIUM CHLORIDE FLUSH 0.9% 10 ML SYRINGE IVP SCH ×2 (21:44→22:46)
[2017-09-09] MEDS: HEPARIN 5,000 UNIT/ML VIAL SUBQ SCH (21:47)
[2017-09-09] MEDS: guaiFENesin 600 MG TABLET PO SCH (21:54)
[2017-09-09] MEDS ORDERED: DIVALPROEX DR 250 MG TABLET PO ONE (22:41)
[2017-09-09] MEDS: MORPHINE 2 MG/ML SYRINGE IVP PRN (22:45)
[2017-09-09] MEDS ORDERED: KETOROLAC 15 MG/ML VIAL ONE (23:06)
[2017-09-09] MEDS ORDERED: SODIUM CHLORIDE FLUSH 0.9% 10 ML SYRINGE IVP ONE ×2 (23:13→23:48)
[2017-09-09] MEDS ORDERED: HALOPERIDOL 5 MG/ML VIAL IVP PRN (23:16)
[2017-09-09] MEDS ORDERED: ACETAMINOPHEN 1,000 MG/100 ML 100 ML IV PRN (23:19)
[2017-09-09] MEDS: SODIUM CHLORIDE FLUSH 0.9% 10 ML SYRINGE IVP PRN (23:47)
--- NOTE | 2017-09-10 00:05 | XRAY Preliminary Report ---
Exam: XR CHEST 1 VIEW IMPRESSION: 1. Small left basilar airspace disease and effusion are present, improved from the prior exam. [facility] SITE ID: [id number]
--- NOTE | 2017-09-10 00:08 | XRAY Report ---
EXAM: CHEST RADIOGRAPHY EXAM DATE: 09/09/2017 11:49 PM. CLINICAL HISTORY: Sudden onset pain, COMPARISON: 05/16/2017 TECHNIQUE: 1 view. FINDINGS: Lungs/Pleura: Left basilar airspace disease. There is a trace left sided pleural effusion. These find ings are improved from the prior study. There is mild right apical pleural thickening/scarring. No ev idence of a pneumothorax. Mediastinum: Within exam limitations, the cardiomediastinal contour is normal. Other: Mild degenerative change about the shoulder noted bilaterally. IMPRESSION: 1. Small left basilar airspace disease and effusion are present, improved from the prior exam. [facility] Referring Provider Line: [phone] SITE ID: [id number]
[2017-09-10] MEDS: metroNIDAZOLE 500 MG/100 ML 250 MG/50 ML BAG IV SCH ×3 (00:12→12:23)
[2017-09-10] MEDS: PIPERACILLIN/TAZOBACTAM 3.375 GM in SODIUM CHLORIDE 0.9% MINIBAG 100 ML IV SCH ×4 (01:37→20:24)
--- NOTE | 2017-09-10 03:18 | HISTORY & PHYSICAL EXAMINATION ---
DATE OF ADMISSION: 09/09/2017 CHIEF COMPLAINT: Sent from [facility] with left lower quadrant pain and constipation. HISTORY OF PRESENT ILLNESS: The patient is a pleasant, 72-year-old, white female who is a long-term resident at [facility]. She has multiple past medical problems. 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 Also has history of oropharyngeal cancer, which is not an active issue and, most significantly, she was treated in May 2017 for healthcare-acquired pneumonia. She also has chronic anemia. The patient was sent from [facility] to the ER on the evening of September 09, the facility reporting left lower quadrant pain, which had been going on for about 6 days. When I examined the patient, she told me she no longer had abdominal pain. Notably, she did receive some morphine in the ER. She offered no acute complaint;however, she mentioned some chronic complaints which include a residual deficit of left arm discomfort and paresis following a stroke, and she also has frequent migraine headaches. In prior medical record, this patient was described having underlying dementia, but when I interviewed her, she was alert, oriented and answered all my questions appropriately. She denied cough, shortness of breath, chest pain. She did not report feeling chills or fever. Upon presentation to the ER, the patient was hemodynamically stable. Her heart rate was between 90 and 100. Blood pressure was 130/80. She had elevated temperature of 37.3 Celsius. She was saturating 100% on room air, with a respiratory rate of 18. Laboratories showed elevated white blood cell count at 12.8. In addition, there was significant anemia with hemoglobin of 6.5. MCV was normal at 89.4. Platelet count was elevated at 472. Neutrophil percent was high on the differential. Chemistry panel showed creatinine of 1.1, BUN of 22. Albumin was 2.9. Liver function tests were unremarkable. Due to the anemia, the ER physician, Dr. Robertson, checked rectal exam and the patient's stool was guaiac negative. The workup included a CT scan of the chest and abdomen, which showed trace right and small left pleural effusions. Most importantly, there was a dense left lower lobe consolidation/pneumonia. Debris was present in the bronchi and in the left lower lobe. The radiologist questioned pneumonia plus/minus aspiration. In addition, there was a 2.1 cm central area of fluid in the left lower lobe which was read as lung necrosis superimposed on pneumonia versus mass. Besides the pneumonia, sigmoid and left colon diverticulosis with early diverticulitis was described. Dr. Robertson talked to the patient about the possible lung mass, and I had a brief conversation about this as well. The patient told me that she would not agree to any particular workup or invasive evaluation for this lesion. However, she also mentioned that her might feel differently, and they will discuss. PAST MEDICAL HISTORY 1. History of oropharyngeal cancer, recently did not seem to be an issue. 2. Chronic kidney disease with creatinine baseline between 1.1 and 1.5. 3. Dementia, likely mild. 4. History of multiple pneumonias, most recently in May,. Please see details of hospital course in the electronic medical record. 5. Chronic anemia. The patient's baseline blood count is somewhat difficult to see, as she had a hemoglobin ranging between 7 and 11 since May 2017. I did not find information in the medical record whether she ever got transfusion. 6. History of cerebrovascular accident with left-sided residual weakness and left hand contracture. 7. Hypertension. 8. Hypothyroidism. 9. Depression. 10. Dyslipidemia. ALLERGIES: CODEINE. SOCIAL HISTORY: The patient is a long-term extended care facility resident. She does not smoke. FAMILY HISTORY: Reviewed, noncontributory to current presentation. CODE STATUS: DO NOT RESUSCITATE, DO NOT INTUBATE per prior medical records. The patient confirmed this when I spoke with her. REVIEW OF SYSTEMS: A complete 12-point review. At the time of my exam, the patient offered no complaints except for chronic issues with residual stroke deficit and chronic migraines. Regarding her presentation and prior symptoms, please see the symptoms listed in history of present illness. OUTPATIENT MEDICATIONS Include: 1. Oxycodone/acetaminophen. 2. Levothyroxine. 3. Fluoxetine. 4. Depakote. 5. Plavix. 6. Lipitor. PHYSICAL EXAMINATION VITAL SIGNS: Listed above at history of present illness. GENERAL: The patient is a well-developed, elderly female who was not in distress. SKIN: With pallor. No rash. No jaundice. LYMPHATIC: One plus pitting pedal edema up to above the ankles, bilaterally symmetric. Oral cavity. No thrush, no ulcers. CARDIOVASCULAR: S1, S2 regular. Tachycardia. No obvious murmur. RESPIRATORY: Decreased air entry above the bases without crackles, wheezing. No increased work of breathing. ABDOMEN: Soft, benign. Bowel tones hypoactive. Lower quadrant tenderness mostly on the left side without guarding or rebound. NEUROLOGIC: Alert, oriented, nonfocal. Left arm contracture and weakness. No new focal deficits. Appeared with intact cognition and mentation. PSYCHIATRIC: Cooperative, pleasant to talk to. ER workup reviewed per electronic medical record. ASSESSMENT AND PLAN/ACTIVE ISSUES 1. Healthcare-acquired pneumonia, complicated. a. Hospitalization within less than 6 months plus the patient is an extended care facility resident; therefore, the pneumonia should be considered healthcare -acquired. b. Multiple episodes of pneumonia, not improving regardless of broad antibiotic coverage; question aspiration versus a lung mass and underlying malignancy. c. Reviewing the past medical record, the patient was broadly covered for pneumonia including antibiotic coverage with cefepime, vancomycin and Levaquin as well. 2. Acute on chronic anemia, with negative guaiac. ER physician already ordered 2 units of packed red blood cells to get transfused. On physical exam, the patient appeared pale. The anemia is most likely secondary to chronic inflammatory condition with pneumonia and possible other chronic diseases; on top of the differential would be malignancy. 3. Diverticulosis/diverticulitis. 4. Hypoalbuminemia and third spacing. On physical exam, the patient had some peripheral edema on the lower extremities, and she does have trace/small pleural effusions. Most likely, these are secondary to protein malnutrition and hypoalbuminemia. 5. Other infectious issues. I reviewed microbiology record. The patient had urinary tract infection in the past with enterococcus also with morganella. In the past, she had a positive blood culture with Staph epidermidis, which most likely was a result of contamination. PLAN AND ORDERS 1. The patient is getting admitted as inpatient. I will continue treating pneumonia and diverticulitis with Zosyn and Flagyl. Will check MRSA screen. If positive, I will add vancomycin. Blood cultures were sent from the ER. I also sent C difficile, considering recent antibiotic treatment, and I will send respiratory cultures as well. 2. Supportive treatment for pneumonia including bronchodilators. 3. Pain control/symptom control. 4. The patient should have protein Boost and snacks and high protein diet. 5. Reconciled outpatient medications will continue unchanged. 6. DO NOT RESUSCITATE. 7. Deep venous thrombosis prophylaxis. 8. Will request swallow evaluation. Will continue monitoring the patient with aspiration precautions and dysphagia diet. 9. Regarding evaluation for the lung mass, the patient should be treated for pneumonia at this point and then evaluation for this lung mass should be discussed with Oncology, possibly with Pulmonology. The patient should be sent for outpatient followup if she wishes to pursue a diagnosis. For now, I added ESR, and if ESR is above 100, then obviously it will make malignancy more likely to be the diagnosis. In the meantime, I also added anemia workup including reticulocyte count, iron panel, folate, B12. A transfusion was already ordered from the ER and it will be completed. Time spent in the care of this patient was 60 minutes. JOB #: [id number] EXT JOB #:[id number] EDMUND
[2017-09-10 06:11] LABS: BASOPHILS # (AUTO) 0.1 10^3/uL (0.0-0.1); BASOPHILS % (AUTO) 0.4 %; EOSINOPHILS # (AUTO) 0.1 10^3/uL (0.0-0.7); EOSINOPHILS % (AUTO) 0.4 %; HCT - HEMATOCRIT 23.6 % (37.0-47.0); HGB - HEMOGLOBIN 7.7 g/dL (12.0-16.0); LYMPHOCYTES # (AUTO) 0.6 10^3/uL (1.5-3.5); LYMPHOCYTES % (AUTO) 4.2 %; MEAN CORPUSCULAR HEMOGLOBIN 28.2 pg (27.0-31.0); MEAN CORPUSCULAR HGB CONC 32.6 g/dL (32.0-36.0); MEAN CORPUSCULAR VOLUME 86.6 fL (81.0-99.0); MEAN PLATELET VOLUME 6.4 fL (7.9-10.8); MONOCYTES # (AUTO) 1.4 10^3/uL (0.0-1.0); MONOCYTES % (AUTO) 9.3 %; NEUTROPHILS # (AUTO) 12.6 10^3/uL (1.5-6.6); NEUTROPHILS % (AUTO) 85.7 %; RED BLOOD COUNT 2.72 10^6/uL (4.20-5.40); UNCORRECTED WHITE BLOOD COUNT 14.7 x10^3/uL; WHITE BLOOD COUNT 14.7 x10^3/uL (4.8-10.8)
[2017-09-10 06:18] LABS: CALCIUM 8.5 mg/dL (8.5-10.3); CREATININE 1.3 mg/dL (0.4-1.0); PHOSPHORUS 3.4 mg/dL (2.5-4.6); POTASSIUM 4.5 mmol/L (3.5-5.0)
[2017-09-10] MEDS: IPRATROPIUM/ALBUTEROL 3 ML NEB INH SCH ×3 (07:58→15:00)
--- NOTE | 2017-09-10 08:36 | PROVIDER PROGRESS NOTE ---
Subjective - Prog Note Date Prog Note Date: 09/10/17 Prog Note Time: 08:34 - Subjective Pt reports feeling: Improved Subjective: she has no pain in mid left abd now. no emesis. denies cough, sob. at the bedside. he feels she is at baseline mentation. appropriate for herself. Current Medications - Current Medications Current Medications: Active Medications Acetaminophen (Tylenol) 650 mg PO Q4HR PRN PRN Reason: Pain 1 to 4 Albuterol/Ipratropium (Duoneb) 3 ml INH RTQID [facility] Last Admin: 09/10/17 07:58 Dose: 3 ml Atorvastatin Calcium (Lipitor) 80 mg PO DAILY [facility] Clopidogrel Bisulfate (Plavix) 75 mg PO DAILY [facility] Divalproex Sodium (Depakote Dr) 250 mg PO BID [facility] Last Admin: 09/09/17 22:37 Dose: Not Given Fluoxetine HCl (Prozac) 40 mg PO DAILY [facility] Guaifenesin (Mucinex) 600 mg PO DAILY [facility] Last Admin: 09/09/17 21:54 Dose: 600 mg Haloperidol (Haldol Inj) 0.5 mg IVP ONCE PRN PRN Reason: Anxiety Stop: 09/10/17 23:15 Heparin Sodium (Porcine) () 5,000 unit SUBQ BID [facility] Last Admin: 09/09/17 21:47 Dose: Not Given Metronidazole (Flagyl 500 Mg/100 Ml) 250 mg in 50 mls @ 100 mls/hr IV Q6HR [facility] Last Infusion: 09/10/17 06:37 Dose: Infused Piperacillin Sod/Tazobactam (Sod 3.375 gm/ Sodium Chloride) 100 mls @ 200 mls/ hr IV Q6HR [facility] Last Infusion: 09/10/17 07:00 Dose: Infused Acetaminophen (Ofirmev) 100 mls @ 400 mls/hr IV Q6HR PRN PRN Reason: FEVER > 100.5 F Ketorolac Tromethamine (Toradol Inj) 15 mg IVP Q6HR PRN PRN Reason: PAIN Stop: 09/14/17 23:14 Levothyroxine Sodium (Synthroid) 50 mcg PO QDAC [facility] Morphine Sulfate (Morphine) 2 mg IVP Q2H PRN PRN Reason: PAIN Last Admin: 09/09/17 22:45 Dose: 2 mg Ondansetron HCl (Zofran Inj) 4 mg IVP Q6HR PRN PRN Reason: Nausea / Vomiting Polyethylene Glycol (Miralax) 17 gm PO DAILY [facility] Sodium Chloride (Normal Saline Flush 0.9%) 10 ml IVP PRN PRN PRN Reason: NEEDED PER PROVIDER ORDERS Last Admin: 09/09/17 23:47 Dose: 10 ml Sodium Chloride (Normal Saline Flush 0.9%) 10 ml IVP Q8HR [facility] Last Admin: 09/09/17 22:46 Dose: 20 ml FLUoxetine [PROzac] 40 mg PO DAILY 11/10/13 Atorvastatin [Lipitor] 80 mg PO DAILY 05/16/17 Clopidogrel [Plavix] 75 mg PO DAILY 05/16/[address] [Depakote Dr] 250 mg PO BID 05/17/17 Levothyroxine [Synthroid] 50 mcg PO QDAC 05/17/17 Nystatin [Mycostatin] 2 ml PO Q4H 05/17/17 Oxycodone HCl/Acetaminophen [Oxycodone-Acetaminophen 5-325] 1 each PO Q6H PRN Objective - Vital Signs/Intake & Output Reviewed Vital Signs: Yes Vital Signs: Vital Signs x48h Temp Pulse Pulse Resp BP Pulse Ox 09/10/17 08:11 363.6 C H 87 92/57 L 100 09/10/17 08:01 88 16 09/10/17 01:41 36 C L 114 H 18 92/62 100 Intake & Output: Intake & Output 09/07/17 09/08/17 09/09/17 09/10/17 23:59 23:59 23:59 23:59 Intake Total 350 1050 Balance 350 1050 - Objective General Appearance: positive: No acute distress, Alert, Other (slender elderly female who looks older than stated age with dysarthria, drooling from right side of mouth, facial droop. uses her own napkin and her right arm to wipe her face) Eyes Bilateral: positive: PERRL, EOMI ENT: positive: No signs of dehydration Neck: positive: No JVD. negative: Stiff neck, Carotid bruit Respiratory: positive: Chest non-tender, No respiratory distress, Rales (bases that clear with cough but return). negative: Wheezes, Rhonchi Cardiovascular: positive: Regular rate & rhythm, Systolic murmur. negative: Gallop/S4, Friction rub Abdomen: positive: Non-tender, No organomegaly, No distention, Abnml bowel sounds (hypoactive) Skin: positive: Warm, Dry Extremities: positive: Pedal edema (mild around ankles) Neurologic/Psychiatric: positive: Disoriented to time, Facial droop (left), Slurred/abnml speech. negative: CN's nml (2-12), Motor nml (left body weakness) - Lab Results Fish Bones: 09/10/17 06:00 09/10/17 06:00 Other Labs: Lab Results x24hrs 09/10/17 09/10/17 09/09/17 Range/Units 06:00 06:00 23:34 WBC 14.7 H (4.8-10.8) x10^3/uL RBC 2.72 L (4.20-5.40) 10^6/uL Hgb 7.7 L (12.0-16.0) g/dL Hct 23.6 L (37.0-47.0) % MCV 86.6 (81.0-99.0) fL MCH 28.2 (27.0-31.0) pg MCHC 32.6 (32.0-36.0) g/dL RDW 17.0 H (12.0-15.0) % Plt Count 394 (130-450) 10^3/uL MPV 6.4 L (7.9-10.8) fL Neut # 12.6 H (1.5-6.6) 10^3/uL Lymph # 0.6 L (1.5-3.5) 10^3/uL O'Brien # 1.4 H (0.0-1.0) 10^3/uL Eos # 0.1 (0.0-0.7) 10^3/uL Baso # 0.1 (0.0-0.1) 10^3/uL Absolute Nucleated RBC 0.00 x10^3/uL Nucleated RBC % 0.0 /100WBC Sodium 136 (135-145) mmol/L Potassium 4.5 (3.5-5.0) mmol/L Chloride 103 (101-111) mmol/L Carbon Dioxide 24 (21-32) mmol/L Anion Gap 9.0 (6-13) BUN 24 H (6-20) mg/dL Creatinine 1.3 H (0.4-1.0) mg/dL Estimated GFR (MDRD) 40 L (>89) Glucose 163 H (70-100) mg/dL Calcium 8.5 (8.5-10.3) mg/dL Phosphorus 3.4 (2.5-4.6) mg/dL Troponin I 0.04 (<0.49) ng/mL Albumin 2.7 L (3.2-5.5) g/dL Assessment/Plan - Problem List (1) Pneumonia Impression: Presented as LUQ, left mid abd pain and no fever, cough, sob. She lives at a SNF and was hospitalized in 05/2017 for pneumonia Categorized as Health Care associated pneumonia found on CT of chest/abd/pelvis Day # 2 zosyn/flagyl Plan: continue abx for min of 4 days. then change to oral levaquin and flagyl for a total of 10 days abx. review blood and sputum cultures once processed continue O2 as needed. Qualifiers: Pneumonia type: due to unspecified organism Laterality: left Lung location: lower lobe of lung Qualified Code(s): J18.1 - Lobar pneumonia, unspecified organism (2) History of primary oropharyngeal cancer Impression: swallow eval ordered but she has had extensive eval and tx at [facility] rehab and at [facility]. CT chest shows necrosis of either pneumonia or tumor. Plan: stop swallow eval order she doesn't want biopsy or treatment for any cancer. so no CT/PET, no CT guided biopsy Please see [facility] plan. continue dysphagia diet and change liquids to thickened. (3) Anemia Impression: Laboratory Tests 09/09/17 09/09/17 17:45 17:45 Iron 7 L TIBC 266 % Saturation 3 L Transferrin 190 L Vitamin B12 521 Folate 13.49 FOBT (-) this could be from diverticular bleeding in the past (she is fobt neg) or could be from malnutrition due to anorexia She was transfused 1 unit Transfuse to Hgb of 10 and will need 2 more units. Qualifiers: Anemia type: iron deficiency (4) Protein-calorie malnutrition, mild Impression: seen on exam and on albumin. j Plan: Nutrition consult add supplements. (5) Diverticulitis Impression: seen on CT and presented more with Left mid and LUQ ache. Abd exam is negative. Plan: 10 days of abx total Day #2 of zosyn and flagyl. Change to oral on day #4 and use levaquin and flagyl.
[2017-09-10] MEDS ORDERED: ATORVASTATIN 40 MG TABLET PO SCH (09:00)
[2017-09-10] MEDS: LEVOTHYROXINE 25 MCG TABLET PO SCH (09:14)
[2017-09-10] MEDS: POLYETHYLENE GLYCOL 3350 17 GM PACKET PO SCH (09:14)
[2017-09-10] MEDS: CLOPIDOGREL 75 MG TABLET PO SCH (09:15)
[2017-09-10] MEDS: DIVALPROEX DR 250 MG TABLET PO SCH ×2 (09:15→22:39)
[2017-09-10] MEDS: FLUoxetine 10 MG CAPSULE PO SCH (09:16)
[2017-09-10] MEDS: guaiFENesin 600 MG TABLET PO SCH (09:16)
[2017-09-10] MEDS: HEPARIN 5,000 UNIT/ML VIAL SUBQ SCH ×2 (09:17→23:04)
--- NOTE | 2017-09-10 11:23 | ADVANCE CARE PLANNING NOTE ---
Advance Care Planning - Date/Time Date: 09/10/17 Time: 11:10 - Purpose of encounter Text: To establish goals of care in an elderly woman who is a resident of a prison facility, permanent, and has possible new left lung mass - Parties in attendance Parties in attendance: , patient, and hospitalist Dr. Delicia Harrington - Decisional capacity Decisional capacity of: Patient is compromised. With her treatment for oropharyngeal cancer in 2013 it left her with psychomotor slowing, delayed reflexes, and diminished cognitive thought process. But has been says that she is still able to make decisions, and still has her baseline personality intact - Subjective/Patient's story Subjective/Patient's story: She was born in [facility], 1 of 5 children to a Rashad Michael in the . 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 She met her in [place] when she was at a retreat for a Evangelical club. You had to be 19 in over, single, wanting to meet other Evangelical singles. He was 23 and she was 20. From there they went to go live in [place] when he managed a [employer]. After 10 years at [employer] , it went under, and they returned to the [facility]. Initially she had been a [id number] mom, working to make sure everything was good with the kids. They have 2 children and 1 adopted child. He went back to graduate school. Things were very tight financially so she went to go work for [employer]. She did [employer] for many years. 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 She did that for a few years before retiring here to [facility]. She and he both agree that her life was "normal". They were active, traveling. Very happily . They're children have grown up and left the house. She unfortunately developed oropharyngeal cancer in the summer 2013. She underwent chemo and radiation with the last radiation treatment in September 2014. That was the first blow to her health and it left her disabled in that mentation was slower, motor skills were slower. While she can still dress herself, feed herself, she could not drive anymore. He had to be very careful when he took her out and about. If she wandered away he was always fearful she was either going to fall, or get lost. In March 20, 2017, they were shopping at the grocery store when she let out a small "oh". He turned around to see that she was tilting over to her left side and she was about to fall down so he grabbed her quickly. She had immediate onset of left body hemiplegia. The ambulance picked her up and took her to [facility] since [facility] had no beds. She was at [facility], documented as having a stroke, and went into rehab there. While in rehab she had a second stroke probably March 28. From rehab at [facility], she was transferred [facility] and has been at [facility] since April 13. Unfortunately she has plateaued with regards to her improvement in functional status. Physical therapy there does not feel like she is going to get any better than she has now. She is basically wheelchair-bound. She can sit up and stand to transfer but needs to standby assist to do that. She is hemiplegic , dysarthric. She also has a dysphagia diet with thickened liquids because of risk of aspiration. She has had extensive swallow evaluations at [facility] and [facility] rehab. She has been losing weight. She does not have much of an appetite. She now presents to [facility] with left sided abdominal pain. She has been diagnosed with a left lung pneumonia that is possibly around a tumor mass. She has central necrosis. She also has diverticulitis. - Objective/Medical story Objective/Medical Story: She is a 72-year-old female who is a long-term resident of [facility] since April of this year. She has multiple past medical problems with chronic renal insufficiency, history of 2 strokes with residual left-sided weakness, and a history of oropharyngeal cancer. She was recently treated here at [facility] for healthcare associated pneumonia in May 2017. She has mild psychomotor retardation due to her treatment for oropharyngeal cancer, and has mild to moderate cognitive loss but her describes her as still able to make decisions and participate actively in treatment plans. She is bedbound or in a wheelchair at [facility] but is able to stand to transfer. She presents to our emergency room because of left flank and left mid abdominal pain according to her that is been going on for 6 days. There is no diarrhea, no vomiting. She herself felt no fevers or chills. In the emergency room she did not have any complaints of abdominal pain. She was hemodynamically stable in that her heart rate was between 90-100. Blood pressure 130/80. Temperature was 37.3. She was 100% saturating on room air with a respiratory rate of 18. Physical examination showed an alert oriented hemiplegic elderly woman who is thin. No acute respiratory distress. White cell count was 12.8, hemoglobin 6.5 and platelets 472. Creatinine was 1.1, BUN 22. Albumin 2.9. Stool was guaiac negative. CT of the chest and abdomen showed a small left pleural effusion but a dense left lower lobe consolidation/pneumonia. Debris present in the bronchi and left lower lobe. The radiologist questions whether this is pneumonia or pneumonia with aspiration. She has a 2.1 cm central area of fluid in the left lower lobe which is read as lung necrosis superimposed on pneumonia versus tumor mass. She also has early diverticulitis on the abdominal section of the CAT scan. - Goals of Care Goals of care determinations: She and her asked me to walk through 2 different scenarios. The first scenario is that this is just pneumonia, infection, and with time she will get better. The second scenario is that this is in fact tumor mass, and that it would require biopsies, possible wedge resection, possible radiation and possible chemotherapy. With that in mind, their goals are clearly stated. She feels that her quality of life is diminished substantially over the last few months. She never wanted to be living in a prison facility permanently. But it looks like this is what the rest of her life is going to be. Her has his own health problems and he cannot take care of her. With that in mind, she is going to be leaning toward comfort measures only. Her then interjects and states that he wants her hospitalized whenever needed as long as she is still herself. He holds her hand, looks into her eyes and looks at her face, and states that the person he is still present in her spirit. That they still have good talks. They share news of their children, and that it is meaningful to both of them. If and when he looks at her face and no longer sees her spirit present, he is willing to then transition her to comfort measures with no hospitalizations at all. Because her quality of life is already diminished, they see no point in moving forward with looking to see if this is a left lung cancer or not. Time will tell if this is pneumonia or tumor. If this is pneumonia, she has more time, she will get better and remain in status quo. If she has lung cancer, it will continue to progress and her health will deteriorate and she will pass away from that. They accept that. They do not want treatment for it. - Plan Plan: Treat with IV antibiotics for the pneumonia and the diverticulitis for minimum of 3-4 days. Transition to oral antibiotics. [facility], she will need to have serial chest x-rays to see how her mass is doing. We will honor her wishes with regards to no treatment if it looks like it is tumor. At that time she will transition to probable palliative care with hospice. Right now she still wishes to be hospitalized as long as it is to treat infection, and treatable problems. She is willing to do blood transfusions. Fill out POLST form. - Code Status Code Status: Do Not Attempt Resuscitation - Time Spent on Advance Care Planning Time spent on advance care plannin minutes
[2017-09-10] MEDS: metroNIDAZOLE 500 MG/100 ML 500 MG/100 ML BAG IV SCH ×2 (12:00→19:03)
[2017-09-10] MEDS: oxyCOD/ACETAMIN 5 MG/325 MG TABLET PO PRN (12:43)
[2017-09-10] MEDS: SODIUM CHLORIDE FLUSH 0.9% 10 ML SYRINGE IVP SCH ×2 (14:55→17:26)
[2017-09-10] MEDS ORDERED: diphenhydrAMINE INJ 50 MG/ML VIAL IVP STA (16:08)
[2017-09-10] MEDS ORDERED: ACETAMINOPHEN 325 MG TABLET PO ONE (16:08)
[2017-09-10] MEDS ORDERED: SODIUM CHLORIDE 0.9% 250 ML IV ONE (17:12)
[2017-09-10] MEDS: KETOROLAC 15 MG/ML VIAL IVP PRN (17:25)
[2017-09-10] MEDS: SODIUM CHLORIDE FLUSH 0.9% 10 ML SYRINGE IVP PRN (17:26)
[2017-09-10] MEDS ORDERED: IPRATROPIUM/ALBUTEROL 3 ML NEB INH PRN (19:00)
[2017-09-10] MEDS: ATORVASTATIN 40 MG TABLET PO SCH (22:38)
[2017-09-11] MEDS: PIPERACILLIN/TAZOBACTAM 3.375 GM in SODIUM CHLORIDE 0.9% MINIBAG 100 ML IV SCH ×3 (00:17→11:43)
[2017-09-11] MEDS: metroNIDAZOLE 500 MG/100 ML 500 MG/100 ML BAG IV SCH ×4 (01:14→17:28)
[2017-09-11] MEDS: oxyCOD/ACETAMIN 5 MG/325 MG TABLET PO PRN ×3 (01:33→20:42)
[2017-09-11] MEDS: ACETAMINOPHEN 325 MG TABLET PO PRN ×2 (05:11→14:51)
[2017-09-11] MEDS: SODIUM CHLORIDE FLUSH 0.9% 10 ML SYRINGE IVP SCH ×3 (06:04→20:42)
[2017-09-11] MEDS: LEVOTHYROXINE 25 MCG TABLET PO SCH (06:28)
[2017-09-11] MEDS: HEPARIN 5,000 UNIT/ML VIAL SUBQ SCH ×2 (09:00→20:42)
[2017-09-11] MEDS: POLYETHYLENE GLYCOL 3350 17 GM PACKET PO SCH (09:01)
[2017-09-11] MEDS: DIVALPROEX DR 250 MG TABLET PO SCH ×2 (09:01→20:42)
[2017-09-11] MEDS: guaiFENesin 600 MG TABLET PO SCH (09:01)
[2017-09-11] MEDS: FLUoxetine 10 MG CAPSULE PO SCH (09:01)
[2017-09-11] MEDS: CLOPIDOGREL 75 MG TABLET PO SCH (09:01)
--- NOTE | 2017-09-11 14:06 | PROVIDER PROGRESS NOTE ---
Subjective - Prog Note Date Prog Note Date: 09/11/17 Prog Note Time: 14:04 - Subjective Subjective: has been at the bedside most of her stay here. It seems to comfort her. She remembers me from yesterday. Denies any abdominal pain. She really did not like getting up to sit at the side of the bed and was protesting but did it. Stool is negative for C. difficile. There have been no rigors, fevers, or change in vital signs. Current Medications - Current Medications Current Medications: Active Medications Acetaminophen (Tylenol) 650 mg PO Q4HR PRN PRN Reason: Pain 1 to 4 Last Admin: 09/11/17 05:11 Dose: 650 mg Albuterol/Ipratropium (Duoneb) 3 ml INH RTQID PRN PRN Reason: Shortness of Air/Wheezing Atorvastatin Calcium (Lipitor) 80 mg PO QPM [facility] Last Admin: 09/10/17 22:38 Dose: 80 mg Clopidogrel Bisulfate (Plavix) 75 mg PO DAILY [facility] Last Admin: 09/11/17 09:01 Dose: 75 mg Divalproex Sodium (Depakote Dr) 250 mg PO BID [facility] Last Admin: 09/11/17 09:01 Dose: 250 mg Fluoxetine HCl (Prozac) 40 mg PO DAILY [facility] Last Admin: 09/11/17 09:01 Dose: 40 mg Guaifenesin (Mucinex) 600 mg PO DAILY [facility] Last Admin: 09/11/17 09:01 Dose: 600 mg Heparin Sodium (Porcine) () 5,000 unit SUBQ BID [facility] Last Admin: 09/11/17 09:00 Dose: 5,000 unit Piperacillin Sod/Tazobactam (Sod 3.375 gm/ Sodium Chloride) 100 mls @ 200 mls/ hr IV Q6HR [facility] Last Infusion: 09/11/17 12:13 Dose: Infused Metronidazole (Flagyl 500 Mg/100 Ml) 500 mg in 100 mls @ 200 mls/hr IV Q6HR [facility] Last Infusion: 09/11/17 13:22 Dose: Infused Ketorolac Tromethamine (Toradol Inj) 15 mg IVP Q6HR PRN PRN Reason: PAIN Stop: 09/14/17 23:14 Last Admin: 09/10/17 17:25 Dose: 15 mg Levothyroxine Sodium (Synthroid) 50 mcg PO QDAC [facility] Last Admin: 09/11/17 06:28 Dose: 50 mcg Morphine Sulfate (Morphine) 2 mg IVP Q2H PRN PRN Reason: PAIN Last Admin: 09/09/17 22:45 Dose: 2 mg Ondansetron HCl (Zofran Inj) 4 mg IVP Q6HR PRN PRN Reason: Nausea / Vomiting Oxycodone/Acetaminophen (Percocet 5 Mg/325 Mg) 1 tab PO Q4HR PRN PRN Reason: PAIN Last Admin: 09/11/17 01:33 Dose: 1 tab Polyethylene Glycol (Miralax) 17 gm PO DAILY [facility] Last Admin: 09/11/17 09:01 Dose: Not Given Sodium Chloride (Normal Saline Flush 0.9%) 10 ml IVP PRN PRN PRN Reason: NEEDED PER PROVIDER ORDERS Last Admin: 09/10/17 17:26 Dose: 10 ml Sodium Chloride (Normal Saline Flush 0.9%) 10 ml IVP Q8HR [facility] Last Admin: 09/11/17 13:56 Dose: Not Given FLUoxetine [PROzac] 40 mg PO DAILY 11/10/13 Atorvastatin [Lipitor] 80 mg PO QPM 05/16/17 Clopidogrel [Plavix] 75 mg PO DAILY 05/16/[address] [Depakote Dr] 250 mg PO BID 05/17/17 Levothyroxine [Synthroid] 50 mcg PO QDAC 05/17/17 Oxycodone HCl/Acetaminophen [Oxycodone-Acetaminophen 5-325] 1 each PO Q6H PRN Objective - Vital Signs/Intake & Output Reviewed Vital Signs: Yes Vital Signs: Vital Signs x48h Temp Pulse Resp BP Pulse Ox 09/11/17 09:18 84 12 09/11/17 08:41 36.4 C L 20 109/55 L 100 Intake & Output: Intake & Output 09/08/17 09/09/17 09/10/17 09/11/17 23:59 23:59 23:59 23:59 Intake Total 350 2562 1150 Output Total 500 200 Balance 350 2062 950 - Objective General Appearance: positive: No acute distress, Alert, Other (frowning fascies even when asleep) Eyes Bilateral: positive: PERRL, EOMI ENT: positive: Pharynx nml Neck: positive: No JVD. negative: Stiff neck, Carotid bruit Respiratory: positive: Chest non-tender, Rales (at bases, faint), Other ( shallow unlabored respiration). negative: Wheezes, Rhonchi Cardiovascular: positive: Regular rate & rhythm, Systolic murmur. negative: Gallop/S4, Friction rub Abdomen: positive: Non-tender, No organomegaly, Nml bowel sounds, No distention Extremities: positive: Pedal edema Neurologic/Psychiatric: positive: Oriented x3. negative: CN's nml (2-12) ( facial droop), Motor nml (partial hemiplegia) - Lab Results Fish Bones: 09/10/17 06:00 09/10/17 06:00 Assessment/Plan - Problem List (1) Pneumonia Impression: Presented as LUQ, left mid abd pain and no fever, cough, sob. She lives at a SNF and was hospitalized in 05/2017 for pneumonia Categorized as Health Care associated pneumonia found on CT of chest/abd/pelvis WBC not improved last fever was ~23:00 09/09 No blood or sputum cultures, only onces are blood in relation to transfusions. Day # 3 zosyn/flagyl Plan: continue abx for min of 4 days. then change to oral levaquin and flagyl for a total of 10 days abx. Plan is dc to SNF which is her permanent residence 09/12 continue O2 as needed. Qualifiers: Pneumonia type: due to unspecified organism Laterality: left Lung location: lower lobe of lung Qualified Code(s): J18.1 - Lobar pneumonia, unspecified organism (2) History of primary oropharyngeal cancer Impression: swallow eval ordered but she has had extensive eval and tx at [facility] rehab and at [facility]. CT chest shows necrosis of either pneumonia or tumor. and patient do not want me to investigate if this is recurrent or primary Cancer. If it is, they won't treat and will transition to Hospice down the road. Time will tell if that is the case. Plan: stopped swallow eval order she doesn't want biopsy or treatment for any cancer. so no CT/PET, no CT guided biopsy Please see Advanced Care plan. continue dysphagia diet and change liquids to thickened. (3) Anemia Impression: Laboratory Tests 09/09/17 09/09/17 17:45 17:45 Iron 7 L TIBC 266 % Saturation 3 L Transferrin 190 L Vitamin B12 521 Folate 13.49 FOBT (-) this could be from diverticular bleeding in the past (she is fobt neg) or could be from malnutrition due to anorexia She was transfused 1 unit and I ordered 2 more units 08/31 but developed hypotension 30 minutes into very slowed rate of infusion. So 2nd unit stopped and not transfusions for now. Qualifiers: Anemia type: iron deficiency (4) Protein-calorie malnutrition, mild Impression: seen on exam and on albumin. Plan: Nutrition consult add supplements. (5) Diverticulitis Impression: seen on CT and presented more with Left mid and LUQ ache. Abd exam is negative yesterday and today. No tenderness, rebound or guarding. Tolerating dysphagia puree diet. Plan: 10 days of abx total Day #3 of zosyn and flagyl. Change to oral on day #4 and use levaquin and flagyl. Qualifiers: Pneumonia type: due to unspecified organism Laterality: left Lung location: lower lobe of lung Qualified Code(s): J18.1 - Lobar pneumonia, unspecified organism (3) Anemia Qualifiers: Anemia type: iron deficiency
[2017-09-11] MEDS ORDERED: SODIUM CHLORIDE 0.9% 1,000 ML IV ONE (16:42)
[2017-09-11] MEDS ORDERED: PIPERACILLIN/TAZOBACTAM 3.375 GM in SODIUM CHLORIDE 0.9% MINIBAG 100 ML IV SCH (17:00)
[2017-09-11] MEDS: MORPHINE 2 MG/ML SYRINGE IVP PRN (17:10)
[2017-09-11] MEDS: ATORVASTATIN 40 MG TABLET PO SCH (20:42)
[2017-09-12] MEDS: PIPERACILLIN/TAZOBACTAM 3.375 GM in SODIUM CHLORIDE 0.9% MINIBAG 100 ML IV SCH ×2 (00:22→05:52)
[2017-09-12] MEDS: KETOROLAC 15 MG/ML VIAL IVP PRN (00:22)
[2017-09-12] MEDS: metroNIDAZOLE 500 MG/100 ML 500 MG/100 ML BAG IV SCH ×2 (00:51→06:42)
[2017-09-12] MEDS: SODIUM CHLORIDE FLUSH 0.9% 10 ML SYRINGE IVP SCH ×2 (05:54→13:33)
[2017-09-12] MEDS: LEVOTHYROXINE 25 MCG TABLET PO SCH (06:42)
[2017-09-12 08:47] LABS: BASOPHILS # (AUTO) 0.2 10^3/uL (0.0-0.1); BASOPHILS % (AUTO) 1.2 %; EOSINOPHILS # (AUTO) 0.6 10^3/uL (0.0-0.7); EOSINOPHILS % (AUTO) 4.2 %; HCT - HEMATOCRIT 29.1 % (37.0-47.0); HGB - HEMOGLOBIN 9.5 g/dL (12.0-16.0); LYMPHOCYTES # (AUTO) 1.2 10^3/uL (1.5-3.5); LYMPHOCYTES % (AUTO) 7.9 %; MEAN CORPUSCULAR HEMOGLOBIN 28.6 pg (27.0-31.0); MEAN CORPUSCULAR HGB CONC 32.5 g/dL (32.0-36.0); MEAN CORPUSCULAR VOLUME 88.1 fL (81.0-99.0); MEAN PLATELET VOLUME 6.4 fL (7.9-10.8); MONOCYTES # (AUTO) 1.2 10^3/uL (0.0-1.0); MONOCYTES % (AUTO) 8.2 %; NEUTROPHILS # (AUTO) 11.5 10^3/uL (1.5-6.6); NEUTROPHILS % (AUTO) 78.5 %; RED CELL DISTRIBUTION WIDTH 17.6 % (12.0-15.0); UNCORRECTED WHITE BLOOD COUNT 14.7 x10^3/uL; WHITE BLOOD COUNT 14.7 x10^3/uL (4.8-10.8)
[2017-09-12 08:54] LABS: CALCIUM 8.5 mg/dL (8.5-10.3); CREATININE 1.1 mg/dL (0.4-1.0)
[2017-09-12] MEDS ORDERED: levoFLOXacin 250 MG TABLET PO SCH (09:00)
[2017-09-12] MEDS: HEPARIN 5,000 UNIT/ML VIAL SUBQ SCH (09:13)
[2017-09-12] MEDS: guaiFENesin 600 MG TABLET PO SCH (09:14)
[2017-09-12] MEDS: DIVALPROEX DR 250 MG TABLET PO SCH (09:14)
[2017-09-12] MEDS: CLOPIDOGREL 75 MG TABLET PO SCH (09:14)
[2017-09-12] MEDS: POLYETHYLENE GLYCOL 3350 17 GM PACKET PO SCH (09:14)
[2017-09-12] MEDS: FLUoxetine 10 MG CAPSULE PO SCH (09:14)
[2017-09-12] MEDS ORDERED: metroNIDAZOLE 250 MG TABLET PO SCH (12:00)
[2017-09-12] MEDS: oxyCOD/ACETAMIN 5 MG/325 MG TABLET PO PRN (12:15)
--- NOTE | 2017-09-12 12:34 | Discharge Plan ---
"Discharge Plan for SNF / [facility] - DC Plan and Transition Orders Disposition: SNF DC/Xfer Condition: Good SNF Transition Orders: Admit to: [facility] under the care of BAYRON Samaniego Discharge Diagnosis: 1. diverticulitis 2. left lung pneumonia vs. left lung tumor with central necrosis on CT 3. history of oropharyngeal cancer 4. left hemiplegia, cognitive deficit, dysphagia as residual of 2 stroke in 2016 5. chronic iron deficiency anemia with transfusion reaction on attempted transfusion, s/p 1.25 units of PRBC's transfused Medicare Certification: I certify that Post Hospital intermediate care is medically necessary on a continuing basis for any of the conditions for which she/he is receiving care during hospitalization. Notify PCP of admission and forward orders to primary provider for signature. Weight on admission and weekly. Call PCP immediately if weight decreases by 5 pounds or if patient develops dyspnea, chest pain/tightness or edema. House Bowel Program: yes If no BM after 2 days, nurse may give M.O.M. 30ml PO PRN and /or ducolax Supp 1 AR and /or FOREIGN 250mg P.O., and/or senna 1-2 tabs PO. On day 3 nurse may give repeat above order until residents constipation is resolved. Immunizations: Annual Influenza Vaccine: yes. (between Jun 12 and January 09.) Unless allergy or already given Two-Step PPD: yes per [facility] [id number] or appropriate documentation of approved exceptions Treatments & Other Orders: O2 by NC prn keeping O2 sats >92% Oxygen Orders: Lab Tests or X-Rays Orders: CBC, CMP on 09/15/17 and call PCP with results if K is low or albumin is low Orthopedic Orders: none. Medications: PLEASE REFER TO THE DISCHARGE MEDICATION LIST. Insulin Orders? no Diagnosis: Diabetes Initiate hypo and hyperglycemia protocols for BG <70 and BG >375. May check BG prn for signs/symptoms of dysglycemia. Frequency of BG checks: none Basal Insulin: Lantus 100 units / ml inject subq as follows: none [] Other: [] Correction Insulin: - Select the type of insulin below [Choose: Novolog/Humalog]100 units /ml insulin inject subq per orders indicate below [] LOW DOSE [] MODERATE DOSE [] MODERATE/HIGH DOSE [] HIGH DOSE GB UNITS GB UNITS GB UNITS GB UNITS 61-140 0 UNITS 61-140 0 UNITS 61-140 0 UNITS 61-140 0 UNITS 141-175 1 UNITS 141-175 1 UNITS 141-175 2 UNITS 141-175 3 UNITS 176-225 2 UNITS 176-225 3 UNITS 176-225 4 UNITS 176-225 5 UNITS 226-275 3 UNITS 226-275 5 UNITS 226-275 6 UNITS 226-275 7 UNITS 276-325 4 UNITS 276-325 7 UNITS 276-325 8 UNITS 276-325 9 UNITS 326-375 5 UNITS 326-375 9 UNITS 326-375 10 UNITS 326-375 11 UNITS >375 CONTACT MD >375 CONTACT MD >375 CONTACT MD >375 CONTACT MD Custom Dosing: [Choose: None/Novolog/Humalog] 100 units/ml Insulin inject subq as follows: GB Units 61-140 [] Units 141-175 [] Units 176-225 [] Units 226-275 [] Units 276-325 []Units 326-375 [] Units >375 Contact MD Allergies and Adverse Reactions: Allergies Allergy/AdvReac Type Severity Reaction Status Date / Time codeine Allergy Unknown Verified 09/09/17 17:38 - Diet Type: dyphagia puree with thickened liquids Texture: Puree Liquids: Honey thick May have monthly special meal: Yes - Therapies | Activity Therapy: Evaluation | Treat if indicated: PT (please use brace to help wrist and hand contracture which is getting painful to patient) Rehabilitation Potential: Maintain present ADL Functional Activity: Activity as Tolerated Assistance Devices: Wheelchair, Walker"
[2017-09-12 14:58] VITALS: BP 132/75
--- NOTE | 2017-09-14 08:43 | DISCHARGE SUMMARY ---
DATE OF ADMISSION: 09/09/2017 DATE OF DISCHARGE: 09/12/2017 DISCHARGE DIAGNOSES 1. Pneumonia, left lung, status healthcare-associated. 2. Possible left lung mass. 3. History of oropharyngeal cancer. 4. Sigmoid diverticulitis. 5. Iron deficiency anemia. 6. Hypoalbuminemia. 7. History of stroke with residual hemiplegia. 8. Transfusion reaction. MEDICATIONS 1. On transfer metronidazole 250 mg p.o. q.6 hours to finish on 09/20/2017. 2. Levaquin 250 mg daily to finish on 09/20/2017. 3. Lipitor 80 mg daily. 4. Plavix 75 mg [address] 5[address]ak[address] 250 mg p.o. daily. 6. Prozac 40 mg daily. 7. Synthroid 50 mcg daily. 8. Oxycodone with acetaminophen 5/325 one every 6 hours as needed for pain, #30. PRINCIPAL PROCEDURES 1. Abdomen and pelvis CT. Small incidental hiatal hernia is noted. Trace right and small left pleural effusion. Dense left lower lobe consolidation with fluid in the airway noted. Rounded low density le keke in the medial left lower lobe measuring 1.8 x 1.8 x 2.1 cm. Persistent moderate intrahepatic mina e duct dilatation. Gallbladder surgically absent. Mild pancreatic atrophy. Small focal cortical areas of scarring in both kidneys. Simple right upper pole renal cyst. Diffuse colonic diverticulosis, mos t severely affecting the sigmoid bowel. Sigmoid colon is completely distended. Mild to minimal adjace nt inflammation is noted that is felt to be early diverticulitis. No complications such as perforatio n, abscess or obstruction. 2. Chest x-ray: Left basilar airspace disease and effusion present. Improved from 05/16/2017. 3. Two blood cultures negative. 4. Clostridium difficile toxin negative. HOSPITAL COURSE: The patient is a 72-year-old white female who currently lives at [facility] since approximately April 13 of this year. She was independent with her life in that she had good act ivities of daily living, was still ambulatory. She had some cognitive deficits after being treated fo r oropharyngeal cancer in 2013. In March 2017 she suffered 2 strokes. Was sent to [facility] for re habilitation. She has plateaued with regard to her maximal functional status and her feels th at she will not be able to return to home. He cannot take care of her. She still has residual hemiple francisco from her stroke and has dysphasia, dysarthria and is on a pureed diet with thickened liquids. She was admitted in 05/2017 for pneumonia and sent back to [facility]. This time she was [facility] the [facility] on the evening of 09/09/2017 with the facility reporting left lower quadrant pain that plasencia d been going on for 6 days. The patient herself says she was not having any abdominal pain. She did r eceive morphine in the emergency room. Her main complaint with a residual deficit of the hemiplegia i n her left side. She really hated that she was developing contractures at the elbow and left hand. Chuck christensen denies cough, shortness of breath and chest pain. On examination, she was hemodynamically stable. Temperature was 37.3. Saturating 100% on room air. Chuck christensen had the hemiplegia, a nontender abdomen. White cell count was 12.8 with significant anemia, hemoglo bin of 6.5. BUN was 22, creatinine was slightly elevated at 1.1. Rectal exam was guaiac negative. The above chest x-ray and CT were done on the patient. She was treated as a healthcare-associated pneumonia. However, it is possible that she has a mass in her left lung with a postobstructive pneumonia and that is what we are seeing in necrosis. She had a history of oropharyngeal cancer and it may be recurrence of that disease. Advance care planning. Disc ussion was held. Her felt, and she agreed, that her quality of life had significantly take a down turn in this last few months. While he was still happy that her spirit was still good, that who she was and who he loved was still present in her mind and face, he would define a further diminishme nt in her quality of life as in the spirit leaving her. So she has lung cancer, she does not think chuck christensen will survive treatment of radiation, and as such would not want it treated. He is hoping that this is just simple pneumonia, that she will get better from the pneumonia and return to her baseline stat us at the [facility] facility. If it is not, then he will not want any further hospitalizations, and would like to make her comfort care/palliative care with hospice at that time. She was treated a s both pneumonia and diverticulitis with Zosyn and Flagyl. She was changed to oral Levaquin and Flagy l and tolerated that well. She was eating 25% of her food. She just did not have an appetite. Her ini tial creatinine was 1.1 and stayed at 1.1 at discharge. Her white cell count was 12.8 on admission an d 14.7 at discharge. She had no fever, no chills. She was noted to have anemia that was iron deficien cy. We tried to transfuse her 1 unit and 45 minutes later developed rigors and hypotension. When we t ried to transfuse her a second unit she only tolerated about a fourth of the bag before she developed a second episode of rigors. Both blood cultures done with both episodes were negative, yet she is fe lt to have a transfusion reaction. Hemoglobin at discharge was 9.5. With regards to her stroke and hemiplegia, physical therapy saw the patient. They noted her left-side d weakness. She was able to step pivot from the bed to the commode, the commode to the recliner with minimum assist x1 for moving the front wheel walker and cues for stepping with the left lower extremi ty. She has been able to get out of the bed and walk with PT using the walker, and the lap belt. She was felt to be at her baseline and was discharged from physical therapy service during her stay here. On the day of discharge, temperature was 36.5, pulse 84, blood pressure 132/75, respirations 16, and 94% on room air. She is a thin woman who at 5 feet tall, 46 kilograms is alert, but occasionally dis oriented and confused. She is crying, [facility] and wants to go [facility], but her and I have explained to her that she cannot return home yet because he ca nnot take care of her. She has a left hemiplegia with residual, left facial droop, mild dysarthria, s ome dysphagia. Lungs have coarse upper airway sounds but there is no increased respiratory effort. Ot herwise, clear. She has a regular rate and rhythm with a soft systolic murmur. The abdomen is scaphoi d and nontender in spite of her diverticulitis. She has normal bowel sounds. The left extremity is co ntracted at the elbow and wrist. Her fingers are now starting to curl inward. No clubbing, cyanosis, or edema. In my transfer orders to the longterm I have asked them to please do a brace and more therapy for the contractures. Greater than 30 minutes was spent coordinating discharge. JOB #: [id number] EXT JOB #:[id number]
== END 2017-09-12 15:25 | DRG 193 ==
LOC: EDUNIT# → ED 17:32 → MS2 20:34
PROVIDERS: ADMIT Internal Medicine; ATTEND Specialist
PROC: 30233N1 Transfusion of Nonautologous Red Blood Cells into Peripheral Vein, Percutaneous Approach (ICD-10-PCS; principal; 2017-09-10)
DX: J18.1 Lobar pneumonia, unspecified organism (principal); J85.0 Gangrene and necrosis of lung; D64.9 Anemia, unspecified; K57.32 Diverticulitis of large intestine without perforation or abscess without bleeding; I69.354 Hemiplegia and hemiparesis following cerebral infarction affecting left non-dominant side; E44.1 Mild protein-calorie malnutrition; Z68.1 Body mass index [BMI] 19.9 or less, adult; Y95 Nosocomial condition; Z90.49 Acquired absence of other specified parts of digestive tract; D50.9 Iron deficiency anemia, unspecified; I69.322 Dysarthria following cerebral infarction; I69.391 Dysphagia following cerebral infarction; I69.319 Unspecified symptoms and signs involving cognitive functions following cerebral infarction; R13.10 Dysphagia, unspecified; I12.9 Hypertensive chronic kidney disease with stage 1 through stage 4 chronic kidney disease, or unspecified chronic kidney disease; N18.9 Chronic kidney disease, unspecified; T80.89XA Other complications following infusion, transfusion and therapeutic injection, initial encounter; Y84.8 Other medical procedures as the cause of abnormal reaction of the patient, or of later complication, without mention of misadventure at the time of the procedure; Y92.239 Unspecified place in hospital as the place of occurrence of the external cause; G43.909 Migraine, unspecified, not intractable, without status migrainosus; F03.90 Unspecified dementia, unspecified severity, without behavioral disturbance, psychotic disturbance, mood disturbance, and anxiety; E03.9 Hypothyroidism, unspecified; F32.9 Major depressive disorder, single episode, unspecified; E78.5 Hyperlipidemia, unspecified; Z66 Do not resuscitate; Z99.3 Dependence on wheelchair; Z85.819 Personal history of malignant neoplasm of unspecified site of lip, oral cavity, and pharynx; Z92.21 Personal history of antineoplastic chemotherapy; Z92.3 Personal history of irradiation; Z79.02 Long term (current) use of antithrombotics/antiplatelets; Z87.440 Personal history of urinary (tract) infections
CPT/HCPCS: 36415; 36430; 71010; 74177; 80048; 80053; 80069; 80164; 82607; 82746; 83540; 83690; 84466; 84484; 85025; 85044; 85651; 86850; 86900; 86901; 86920; 87040; 87205; 87493; 87640; 93005; 94640; 96374; 96375; 99283; 99284; 99285

== ENCOUNTER 2017-09-18 10:25 | Outpatient (CLI) | payer MEDICARE, OTHER ==
[2017-09-18 13:39] LABS: ALBUMIN/GLOBULIN RATIO 0.8 (1.0-2.2); BILIRUBIN,TOTAL 0.4 mg/dL (0.2-1.0); CALCIUM 9.3 mg/dL (8.5-10.3); POTASSIUM 4.3 mmol/L (3.5-5.0); TOTAL PROTEIN 6.8 g/dL (6.7-8.2)
[2017-09-18 13:42] LABS: BASOPHILS # (AUTO) 0.1 10^3/uL (0.0-0.1); BASOPHILS % (AUTO) 1.1 %; EOSINOPHILS # (AUTO) 0.3 10^3/uL (0.0-0.7); EOSINOPHILS % (AUTO) 3.4 %; HCT - HEMATOCRIT 28.3 % (37.0-47.0); HGB - HEMOGLOBIN 9.3 g/dL (12.0-16.0); LYMPHOCYTES # (AUTO) 1.3 10^3/uL (1.5-3.5); MEAN CORPUSCULAR HEMOGLOBIN 28.8 pg (27.0-31.0); MEAN CORPUSCULAR HGB CONC 32.9 g/dL (32.0-36.0); MEAN CORPUSCULAR VOLUME 87.5 fL (81.0-99.0); MEAN PLATELET VOLUME 6.8 fL (7.9-10.8); MONOCYTES # (AUTO) 0.5 10^3/uL (0.0-1.0); MONOCYTES % (AUTO) 6.6 %; NEUTROPHILS # (AUTO) 5.7 10^3/uL (1.5-6.6); NEUTROPHILS % (AUTO) 71.9 %; RED BLOOD COUNT 3.24 10^6/uL (4.20-5.40); RED CELL DISTRIBUTION WIDTH 17.5 % (12.0-15.0); UNCORRECTED WHITE BLOOD COUNT 7.9 x10^3/uL; WHITE BLOOD COUNT 7.9 x10^3/uL (4.8-10.8)
== END 2017-09-18 10:26 | disposition home or self-care (01) ==
LOC: LAB.R 10:25
DX: E03.9 Hypothyroidism, unspecified (principal)
CPT/HCPCS: 80053; 85025

== ENCOUNTER 2017-11-02 08:00 | Outpatient (CLI) | payer MEDICARE, OTHER ==
[2017-11-02 19:48] LABS: HGB - HEMOGLOBIN 10.1 g/dL (12.0-16.0); MEAN CORPUSCULAR HEMOGLOBIN 27.5 pg (27.0-31.0); MEAN CORPUSCULAR HGB CONC 31.8 g/dL (32.0-36.0); MEAN CORPUSCULAR VOLUME 86.6 fL (81.0-99.0); MEAN PLATELET VOLUME 7.2 fL (7.9-10.8); RED BLOOD COUNT 3.67 10^6/uL (4.20-5.40); RED CELL DISTRIBUTION WIDTH 15.7 % (12.0-15.0); WHITE BLOOD COUNT 6.9 x10^3/uL (4.8-10.8)
[2017-11-02 20:12] LABS: CALCIUM 9.6 mg/dL (8.5-10.3); CREATININE 1.1 mg/dL (0.4-1.0)
[2017-11-02 20:15] LABS: THYROID STIMULATING HORMONE 2.07 uIU/mL (0.34-5.60)
[2017-11-02 20:19] LABS: FREE T4 (FREE THYROXINE) 1.1 ng/dL (0.58-1.64)
== END 2017-11-02 08:01 | disposition home or self-care (01) ==
LOC: LAB.R 08:00
DX: I63.02 Cerebral infarction due to thrombosis of basilar artery (principal); E03.9 Hypothyroidism, unspecified; I69.354 Hemiplegia and hemiparesis following cerebral infarction affecting left non-dominant side
CPT/HCPCS: 80048; 84439; 84443

== ENCOUNTER 2017-11-02 19:14 | Outpatient (CLI) | payer MEDICARE, OTHER | END 2017-11-02 19:15 | disposition critical access hospital (66) | LOC: EMS 19:14 | PROVIDERS: ATTEND Surgery | DX: M25.551 Pain in right hip (principal); W18.39XA Other fall on same level, initial encounter; Y92.122 Bedroom in nursing home as the place of occurrence of the external cause | CPT/HCPCS: A0425; A0429 ==

== ENCOUNTER 2017-11-02 19:19 | Emergency (ER) | payer MEDICARE, OTHER, MEDICAID ==
[2017-11-02] MEDS ORDERED: HYDROcod/ACETAM 5/325 MG TABLET PO STA (19:27)
--- NOTE | 2017-11-02 19:28 | ED Physician Documentation ---
PD HPI Fall - Stated complaint Stated Complaint: FELL, HIT HEAD - History obtained from History obtained from: Patient, EMS - History of Present Illness Mechanism of injury: Other (72-year-old woman on Plavix from assisted living, she was transferring from her wheelchair and bed by herself and fell on the floor, initially hitting the buttocks and then the back of her head on the ground. She did not lose consciousness. She complains of posterior headache and bilateral hip pain although I guess she was able to transfer and bear weight on both legs for EMS.) Review of Systems Constitutional: denies: Fever, Chills GI: denies: Abdominal Pain, Nausea, Vomiting Neurologic: denies: Generalized weakness PD PAST MEDICAL HISTORY - Past Medical History Cardiovascular: Hypertension Respiratory: None Neuro: Dementia, CVA, Headache/migraine Endocrine/Autoimmune: HyPOthyroidism GI: None : Renal insuffiency HEENT: None Psych: None Musculoskeletal: None Derm: None - Past Surgical History Past Surgical History: Yes General: Cholecystectomy, Appendectomy - Present Medications Home Medications: Ambulatory Orders Medication Instructions Recorded Confirmed Atorvastatin [Lipitor] 80 mg PO QPM #0 09/12/17 09/10/17 Clopidogrel [Plavix] 75 mg PO DAILY #0 09/12/17 09/10/17 Divalproex [Bandar Garg] 250 mg PO BID #0 09/12/17 09/10/17 FLUoxetine [PROzac] 40 mg PO DAILY #0 09/12/17 09/10/17 Levothyroxine [Synthroid] 50 mcg PO QDAC #0 09/12/17 09/10/17 Oxycodone HCl/Acetaminophen 1 each PO Q6H PRN #0 09/12/17 09/10/17 [Oxycodone-Acetaminophen 5-325] levoFLOXacin [Levaquin] 250 mg PO DAILY tablet 09/12/17 metroNIDAZOLE [Flagyl] 250 mg PO Q6HR tablet 09/12/17 - Allergies Allergies/Adverse Reactions: Allergies Allergy/AdvReac Type Severity Reaction Status Date / Time codeine Allergy Unknown Verified 11/02/17 19:30 - Social History Does the pt smoke?: No Smoking Status: Never smoker Does the pt drink ETOH?: No Does the pt have substance abuse?: No - Immunizations Immunizations are current?: Yes - POLST Patient has POLST: Yes PD ED PE NORMAL - Vitals Vital signs reviewed: Yes - General General: Alert and oriented X 3, No acute distress - HEENT HEENT: PERRL, EOMI - Neck Neck: Other (Tender to the upper and mid C-spine, no palpable deformity or hematoma on the occiput.) - Respiratory Respiratory: No respiratory distress, Clear bilaterally - Abdomen Abdomen: Non tender - Extremities Extremities: Other (The hip seemed kind of diffusely tender, left more than right. She has great range of motion of the right hip, can raise the left hip off the bed but with some pain and not as full as the right. Pelvis is stable and intact.) - Neuro Neuro: Alert and oriented X 3 Eye Opening: Spontaneous Motor: Obeys Commands Verbal: Oriented GCS Score: 15 Results - Vitals Vitals: Vital Signs - 24 hr 11/02/17 11/02/17 11/02/17 19:20 19:39 20:28 Temperature 36.5 C Heart Rate 86 92 Respiratory 18 16 17 Rate Blood Pressure 138/83 H 141/82 H O2 Saturation 97 100 Oxygen O2 Source [Without Activity] Nasal cannula O2 Source Room air - Rads (name of study) CT Head and Cspine and B hip xrs Radiology: EMP read contemporaneously (DJD no frx, No ICH) PD MEDICAL DECISION MAKING - ED course ED course: 72-year-old woman with ground-level fall on her buttocks and hitting her occiput. Relevant imaging was negative and she passed a road test here, examination was inconsistent with hip fracture. Departure - Departure Disposition: 01 Home, Self Care Clinical Impression: Platelet inhibition due to Plavix Fall Qualifiers: Encounter type: initial encounter Qualified Code(s): W19.XXXA - Unspecified fall, initial encounter Head injury Qualifiers: Encounter type: initial encounter Qualified Code(s): S09.90XA - Unspecified injury of head, initial encounter Neck sprain Qualifiers: Encounter type: initial encounter Qualified Code(s): S13.9XXA - Sprain of joints and ligaments of unspecified parts of neck, initial encounter Hip sprain Qualifiers: Encounter type: initial encounter Laterality: unspecified laterality Qualified Code(s): S73.109A - Unspecified sprain of unspecified hip, initial encounter Condition: Good Record reviewed to determine appropriate education?: Yes Instructions: ED Head Injury Closed Comments: Call your doctor to arrange a follow-up appointment, make the next available appointment. In the interim, return anytime if worse or if new symptoms develop.
--- NOTE | 2017-11-02 20:43 | CT Report ---
EXAM: CT HEAD EXAM DATE: 11/02/2017 07:58 PM. CLINICAL HISTORY: Head inj, fall. COMPARISON: None. TECHNIQUE: Multiaxial CT images were obtained from the foramen magnum to the vertex. Reformats: Coron al. IV contrast: None. In accordance with CT protocol optimization, one or more of the following dose reduction techniques w ere utilized for this exam: automated exposure control, adjustment of mA and/or KV based on patient s ize, or use of iterative reconstructive technique. FINDINGS: Parenchyma: No intraparenchymal hemorrhage. No evidence of mass, midline shift, or CT findings of acu te infarction. Strange-white differentiation is distinct. Diffuse chronic microangiopathic white matter changes. Extraaxial Spaces: Normal for age. No subdural or epidural collections. Ventricles: The ventricles and cortical sulci are enlarged, consistent with age-related tissue loss. Sinuses and orbits: Imaged paranasal sinuses, orbits, and mastoids show no significant abnormality. Bones: No evidence of fracture or calvarial defect. Other: None. IMPRESSION: Generalized age-related cortical atrophic changes without evidence of acute intracranial abnormality. [facility] Referring Provider Line: [phone] SITE ID: [id number]
--- NOTE | 2017-11-02 20:46 | XRAY Report ---
EXAM: PELVIS AND BILATERAL HIPS RADIOGRAPHY EXAM DATE: 11/02/2017 08:12 PM. CLINICAL HISTORY: Fall, pain. COMPARISON: 11/27/2012. TECHNIQUE: 1 view of the pelvis and 1 view of each hip. FINDINGS: Bones: Normal. No fracture or bone lesion. Joints: Minimal bilateral hip joint space narrowing. Unremarkable SI joints and pubic symphysis. Dege nerative changes in lower lumbar spine. Soft Tissues: Vascular calcifications. IMPRESSION: No acute disease. [facility] Referring Provider Line: [phone] SITE ID: [id number]
--- NOTE | 2017-11-02 21:15 | CT Report ---
EXAM: CT CERVICAL SPINE WITHOUT CONTRAST DATE: 11/02/2017 08:29 PM. HISTORY: Fall, pain. COMPARISONS: None. TECHNIQUE: Thin-section axial images were acquired of the cervical spine without contrast. Post-proce ssing: Coronal and sagittal reformats. Other: None. In accordance with CT protocol optimization, one or more of the following dose reduction techniques w ere utilized for this exam: automated exposure control, adjustment of mA and/or KV based on patient s ize, or use of iterative reconstructive technique. FINDINGS: Alignment: Minimal scoliosis. No listhesis. Bones: No fracture or bone lesion. Interspace Levels/Facets: Disk spaces well-preserved. Mild generalized degenerative changes. Musculature: Unremarkable. Other: The paravertebral and prevertebral soft tissues are unremarkable. The lung apices are clear. IMPRESSION: No acute disease. [facility] Referring Provider Line: [phone] SITE ID: [id number]
[2017-11-03 07:51] VITALS: BP 133/95
== END 2017-11-03 08:56 | disposition home or self-care (01) ==
LOC: EDUNIT# → ED 19:19
DX: S09.90XA Unspecified injury of head, initial encounter (principal); S13.9XXA Sprain of joints and ligaments of unspecified parts of neck, initial encounter; S73.109A Unspecified sprain of unspecified hip, initial encounter; W05.0XXA Fall from non-moving wheelchair, initial encounter; Y92.099 Unspecified place in other non-institutional residence as the place of occurrence of the external cause; Z79.02 Long term (current) use of antithrombotics/antiplatelets; Z86.73 Personal history of transient ischemic attack (TIA), and cerebral infarction without residual deficits; I10 Essential (primary) hypertension; E03.9 Hypothyroidism, unspecified; F03.90 Unspecified dementia, unspecified severity, without behavioral disturbance, psychotic disturbance, mood disturbance, and anxiety
CPT/HCPCS: 70450; 72125; 73521; 80048; 84439; 84443; 85027; 99283; 99284; A9270

== ENCOUNTER 2017-11-08 08:00 | Outpatient (CLI) | payer MEDICARE, OTHER ==
[2017-11-08 10:13] LABS: HGB - HEMOGLOBIN 9.6 g/dL (12.0-16.0); MEAN CORPUSCULAR HEMOGLOBIN 28.6 pg (27.0-31.0); MEAN CORPUSCULAR HGB CONC 34.1 g/dL (32.0-36.0); MEAN CORPUSCULAR VOLUME 83.9 fL (81.0-99.0); MEAN PLATELET VOLUME 7.4 fL (7.9-10.8); RED BLOOD COUNT 3.36 10^6/uL (4.20-5.40); RED CELL DISTRIBUTION WIDTH 16.3 % (12.0-15.0); WHITE BLOOD COUNT 6.5 x10^3/uL (4.8-10.8)
[2017-11-08 10:17] LABS: CALCIUM 9.4 mg/dL (8.5-10.3); CREATININE 1.2 mg/dL (0.4-1.0)
== END 2017-11-08 08:01 | disposition home or self-care (01) ==
LOC: LAB.R 08:00
DX: N18.9 Chronic kidney disease, unspecified (principal); I69.354 Hemiplegia and hemiparesis following cerebral infarction affecting left non-dominant side; K57.32 Diverticulitis of large intestine without perforation or abscess without bleeding
CPT/HCPCS: 80048; 82728

== ENCOUNTER 2017-12-11 10:25 | Outpatient (CLI) | payer MEDICARE, OTHER ==
[2017-12-11 14:05] LABS: CALCIUM 9.6 mg/dL (8.5-10.3); CREATININE 1.3 mg/dL (0.4-1.0)
[2017-12-11 14:20] LABS: THYROID STIMULATING HORMONE 1.27 uIU/mL (0.34-5.60)
[2017-12-11 14:26] LABS: FERRITIN 123.1 ng/mL (11.0-306.8)
== END 2017-12-11 10:26 | disposition home or self-care (01) ==
LOC: LAB.R 10:25
DX: N18.2 Chronic kidney disease, stage 2 (mild) (principal); E03.9 Hypothyroidism, unspecified; D64.9 Anemia, unspecified
CPT/HCPCS: 80048; 82728; 84443

== ENCOUNTER 2017-12-15 15:15 | Outpatient (CLI) | payer MEDICARE, OTHER ==
[2017-12-15 18:49] LABS: HGB - HEMOGLOBIN 9.4 g/dL (12.0-16.0); MEAN CORPUSCULAR HEMOGLOBIN 27.7 pg (27.0-31.0); MEAN CORPUSCULAR VOLUME 86.6 fL (81.0-99.0); MEAN PLATELET VOLUME 7.3 fL (7.9-10.8); RED CELL DISTRIBUTION WIDTH 17.5 % (12.0-15.0); WHITE BLOOD COUNT 7.1 x10^3/uL (4.8-10.8)
== END 2017-12-15 15:16 | disposition home or self-care (01) ==
LOC: LAB.R 15:15
DX: D64.9 Anemia, unspecified (principal)

== ENCOUNTER 2017-12-26 15:20 | Outpatient (CLI) | payer MEDICARE, OTHER, MEDICAID ==
[2017-12-26 20:43] LABS: BASOPHILS # (AUTO) 0.1 10^3/uL (0.0-0.1); BASOPHILS % (AUTO) 0.9 %; EOSINOPHILS # (AUTO) 0.5 10^3/uL (0.0-0.7); EOSINOPHILS % (AUTO) 6.3 %; HGB - HEMOGLOBIN 9.7 g/dL (12.0-16.0); LYMPHOCYTES # (AUTO) 1.4 10^3/uL (1.5-3.5); LYMPHOCYTES % (AUTO) 15.9 %; MEAN CORPUSCULAR VOLUME 87.5 fL (81.0-99.0); MEAN PLATELET VOLUME 7.9 fL (7.9-10.8); MONOCYTES # (AUTO) 0.8 10^3/uL (0.0-1.0); MONOCYTES % (AUTO) 9.1 %; NEUTROPHILS # (AUTO) 5.9 10^3/uL (1.5-6.6); NEUTROPHILS % (AUTO) 67.8 %; PLT - PLATELET COUNT 283 10^3/uL (130-450); RED BLOOD COUNT 3.48 10^6/uL (4.20-5.40); WHITE BLOOD COUNT 8.7 x10^3/uL (4.8-10.8)
[2017-12-26 20:52] LABS: ALBUMIN 3.3 g/dL (3.2-5.5); ALBUMIN/GLOBULIN RATIO 0.8 (1.0-2.2); ALKALINE PHOSPHATASE 49 IU/L (42-121); ALT ALANINE AMINOTRANSFERASE < 10 IU/L (10-60); AST ASPARTATE AMINOTRANSFERASE 19 IU/L (10-42); BILIRUBIN,TOTAL < 0.2 mg/dL (0.2-1.0); BUN - BLOOD UREA NITROGEN 46 mg/dL (6-20); CALCIUM 9.6 mg/dL (8.5-10.3); CARBON DIOXIDE - CO2 24 mmol/L (21-32); CHLORIDE 103 mmol/L (101-111); CREATININE 1.5 mg/dL (0.4-1.0); GFR - MDRD 34 (>89); GLUCOSE 156 mg/dL (70-100); SODIUM 139 mmol/L (135-145); TOTAL PROTEIN 7.2 g/dL (6.7-8.2)
== END 2017-12-26 15:21 | disposition home or self-care (01) ==
LOC: LAB.R 15:20
DX: R68.89 Other general symptoms and signs (principal); R79.89 Other specified abnormal findings of blood chemistry
CPT/HCPCS: 80053; 85025

== ENCOUNTER 2017-12-31 19:58 | Emergency (ER) | payer MEDICARE, OTHER, MEDICAID ==
[2017-12-31] MEDS ORDERED: SODIUM CHLORIDE 0.9% 1,000 ML IV ONE (20:15)
[2017-12-31] MEDS ORDERED: ONDANSETRON 4 MG/2 ML VIAL IVP STA (20:15)
[2017-12-31 20:44] LABS: BASOPHILS # (AUTO) 0.1 10^3/uL (0.0-0.1); BASOPHILS % (AUTO) 1.3 %; EOSINOPHILS # (AUTO) 0.9 10^3/uL (0.0-0.7); HGB - HEMOGLOBIN 10.3 g/dL (12.0-16.0); LYMPHOCYTES # (AUTO) 1.1 10^3/uL (1.5-3.5); LYMPHOCYTES % (AUTO) 9.7 %; MEAN CORPUSCULAR HEMOGLOBIN 27.5 pg (27.0-31.0); MEAN CORPUSCULAR HGB CONC 31.6 g/dL (32.0-36.0); MEAN PLATELET VOLUME 7.6 fL (7.9-10.8); MONOCYTES # (AUTO) 0.7 10^3/uL (0.0-1.0); MONOCYTES % (AUTO) 6.4 %; NEUTROPHILS # (AUTO) 8.6 10^3/uL (1.5-6.6); NEUTROPHILS % (AUTO) 74.6 %; PLT - PLATELET COUNT 293 10^3/uL (130-450); RED BLOOD COUNT 3.75 10^6/uL (4.20-5.40); WHITE BLOOD COUNT 11.5 x10^3/uL (4.8-10.8)
--- NOTE | 2017-12-31 20:54 | ED Physician Documentation ---
History of Present Illness - Stated complaint Stated Complaint: VOMIT - Chief complaint Chief Complaint: Abd Pain - History obtained from History obtained from: Patient, Family - History of Present Illness Timing: Yesterday - Additonal information Additional information: patient is a 72 year old female with a history of cognitive delay secondary to prior strokes who is was brought in by her for vomiting. states that the patient normally lives in a skilled nursing but he gets a few free nights at the [facility] every month so he brought the patient with him. He states that she has some issues of disphagia (patient had throat cancer) and every time he tried to feed her she seemed to gag. He also states that she has had intermittent abdominal pain for the last three months. He reports that he was going to take her back to [facility] but he thought that he should get her checked out first. Review of Systems Unable to obtain: Dementia PD PAST MEDICAL HISTORY - Past Medical History Cardiovascular: Hypertension Respiratory: None Neuro: Dementia, CVA, Headache/migraine Endocrine/Autoimmune: HyPOthyroidism GI: None : Renal insuffiency HEENT: None Psych: None Musculoskeletal: None Derm: None - Past Surgical History Past Surgical History: Yes General: Cholecystectomy, Appendectomy - Present Medications Home Medications: Ambulatory Orders Medication Instructions Recorded Confirmed Atorvastatin [Lipitor] 80 mg PO QPM #0 09/12/17 09/10/17 Clopidogrel [Plavix] 75 mg PO DAILY #0 09/12/17 09/10/17 Divalproex [Bandar Garg] 250 mg PO BID #0 09/12/17 09/10/17 FLUoxetine [PROzac] 40 mg PO DAILY #0 09/12/17 09/10/17 Levothyroxine [Synthroid] 50 mcg PO QDAC #0 09/12/17 09/10/17 Oxycodone HCl/Acetaminophen 1 each PO Q6H PRN #0 09/12/17 09/10/17 [Oxycodone-Acetaminophen 5-325] levoFLOXacin [Levaquin] 250 mg PO DAILY tablet 09/12/17 metroNIDAZOLE [Flagyl] 250 mg PO Q6HR tablet 09/12/17 Nitrofurantoin Monohyd/M-Cryst 100 mg PO BID 5 Days capsule 12/31/17 [Macrobid 100 mg Capsule] Ondansetron Odt [Zofran] 4 mg TL Q6H PRN #14 tablet 12/31/17 - Allergies Allergies/Adverse Reactions: Allergies Allergy/AdvReac Type Severity Reaction Status Date / Time codeine Allergy Unknown Verified 11/02/17 19:30 - Social History Does the pt smoke?: No Smoking Status: Never smoker Does the pt drink ETOH?: No Does the pt have substance abuse?: No - Immunizations Immunizations are current?: Yes - POLST Patient has POLST: Yes PD ED PE NORMAL - Vitals Vital signs reviewed: Yes - General General: Alert and oriented X 3 - HEENT HEENT: Atraumatic, PERRL - Neck Neck: Supple, no meningeal sign - Cardiac Cardiac: RRR, No murmur - Respiratory Respiratory: No respiratory distress - Abdomen Abdomen: Soft - Derm Derm: No rash - Extremities Extremities: No deformity - Neuro Eye Opening: Spontaneous Motor: Obeys Commands Verbal: Confused GCS Score: 14 PD ED PE EXPANDED - General General: Alert, No acute distress - HEENT HEENT: Dry mucous membranes - Abdomen Abdomen: Tender to palpation, LLQ. No: Rebound, Guarding Results - Vitals Vitals: Vital Signs - 24 hr 12/31/17 12/31/17 20:04 22:09 Temperature 36.0 C L 36.2 C L Heart Rate 81 68 Respiratory 18 20 Rate Blood Pressure 102/79 142/76 H O2 Saturation 99 100 Oxygen O2 Source [] Nasal cannula O2 Source Room air - Labs Labs: Laboratory Tests 12/31/17 12/31/17 12/31/17 20:28 20:28 21:28 WBC 11.5 H RBC 3.75 L Hgb 10.3 L Hct 32.6 L MCV 87.0 MCH 27.5 MCHC 31.6 L RDW 17.0 H Plt Count 293 MPV 7.6 L Neut # 8.6 H Lymph # 1.1 L [place] # 0.7 Eos # 0.9 H Baso # 0.1 Absolute Nucleated RBC 0.00 Nucleated RBC % 0.0 Sodium 138 Potassium 4.1 Chloride 105 Carbon Dioxide 24 Anion Gap 9.0 BUN 43 H Creatinine 1.3 H Estimated GFR (MDRD) 40 L Glucose 122 H Calcium 9.6 Total Bilirubin 0.3 AST 22 ALT < 10 L Alkaline Phosphatase 56 Total Protein 8.1 Albumin 3.5 Globulin 4.6 H Albumin/Globulin Ratio 0.8 L Lipase 12 L Urine Color YELLOW Urine Clarity SL. CLOUDY Urine pH 5.5 Ur Specific [place] 1.025 Urine Protein TRACE Urine Glucose (UA) NEGATIVE Urine Ketones NEGATIVE Urine Occult Blood TRACE-INTA Urine Nitrite POSITIVE H Urine Bilirubin NEGATIVE Urine Urobilinogen 0.2 (NORMAL) Ur Leukocyte Esterase MODERATE H Urine RBC 0-5 Urine WBC >25 H Ur Squamous Epith Cells RARE Squamous Urine Bacteria Many H Ur Microscopic Review INDICATED Urine Culture Comments INDICATED - Rads (name of study) acute abdomen Radiology: Final report received (normal) PD MEDICAL DECISION MAKING - ED course Complexity details: reviewed old records, reviewed results, re-evaluated patient , considered differential, d/w patient, d/w family ED course: Patient was seen and examined at bedside. patient was well appearing and in no acute distress. IV access was gained, labs were drawn and patient was treated with zofran and fluid bolus. abdominal x-rays were ordered and were within normal limits. Patient's urine was consistent with a urinary tract infection and patient was started on macrobid. Patient was tolerating PO without difficulty. patient was stable for discharge home to the skilled nursing. Departure - Departure Disposition: 01 Home, Self Care Clinical Impression: UTI (urinary tract infection) Condition: Good Instructions: ED UTI Cystitis Female Follow-Up: Sara Padilla ARNP [Primary Care Provider] - As Needed Prescriptions: Nitrofurantoin Monohyd/M-Cryst [Macrobid 100 mg Capsule] 100 mg PO BID 5 Days capsule Ondansetron Odt [Zofran] 4 mg TL Q6H PRN #14 tablet PRN Reason: Nausea / Vomiting Comments: Your symptoms today are being caused by a urinary tract infection. You had your first dose of antibiotics tonight and you will need to be on them for the next 5 days. You can take the zofran as needed for nausea before meals. You should follow up with your doctor if your symptoms don't improve. you may return to the emergency department at any time for new, worsening or uncontrollable symptoms. Discharge Date/Time: 12/31/17 22:17
[2017-12-31 20:57] LABS: ALBUMIN 3.5 g/dL (3.2-5.5); ALBUMIN/GLOBULIN RATIO 0.8 (1.0-2.2); ALKALINE PHOSPHATASE 56 IU/L (42-121); ALT ALANINE AMINOTRANSFERASE < 10 IU/L (10-60); AST ASPARTATE AMINOTRANSFERASE 22 IU/L (10-42); BILIRUBIN,TOTAL 0.3 mg/dL (0.2-1.0); BUN - BLOOD UREA NITROGEN 43 mg/dL (6-20); CALCIUM 9.6 mg/dL (8.5-10.3); CARBON DIOXIDE - CO2 24 mmol/L (21-32); CHLORIDE 105 mmol/L (101-111); CREATININE 1.3 mg/dL (0.4-1.0); GFR - MDRD 40 (>89); GLUCOSE 122 mg/dL (70-100); LIPASE 12 U/L (22-51); SODIUM 138 mmol/L (135-145); TOTAL PROTEIN 8.1 g/dL (6.7-8.2)
--- NOTE | 2017-12-31 21:09 | XRAY Report ---
EXAM: ABDOMINAL SERIES AND PA CHEST EXAM DATE: 12/31/2017 08:58 PM. CLINICAL HISTORY: Left abdomen pain since yesterday. Constipation and vomiting. COMPARISON: 09/10/2017 and 11/22/2012. TECHNIQUE: 2 views abdomen and 1 view chest. FINDINGS: CHEST: Lungs/Pleura: Mild scarring in the lower right lung, otherwise no focal opacities. No effusion or pn eumothorax. Mediastinum: Within exam limitations, cardiomediastinal contour is normal. ABDOMEN: Bowel Gas Pattern: Within normal limits. No dilated loops or abnormal fluid levels. No excessive sto ol. Free Air: None. Other: Cholecystectomy clips noted. No soft tissue calcifications. IMPRESSION: No bowel obstruction, free air, or excessive stool. [facility] Referring Provider Line: [phone] SITE ID: [id number]
[2017-12-31 21:43] LABS: BILIRUBIN,URINE NEGATIVE (NEGATIVE); GLUCOSE, URINE (UA) NEGATIVE (NEGATIVE); KETONES,URINE (UA) NEGATIVE (NEGATIVE); LEUKOCYTE ESTERASE, URINE MODERATE (NEGATIVE); NITRITE,URINE POSITIVE (NEGATIVE); OCCULT BLOOD,URINE TRACE-INTA (NEGATIVE); PH,URINE 5.5 PH (5.0-7.5); PROTEIN,URINE TRACE mg/dL (NEGATIVE); UROBILINOGEN,URINE 0.2 (NORMAL) E.U./dL (NORMAL)
[2017-12-31 21:44] LABS: CLARITY,URINE SL. CLOUDY (CLEAR)
[2017-12-31] MEDS ORDERED: NITROFURANTOIN MACRO 100 MG CAPSULE PO STA (21:49)
[2017-12-31 21:51] LABS: BACTERIA,URINE Many /HPF (None Seen); RBC,URINE 0-5 /HPF (0-5); SQUAMOUS EPITHELIAL CELL,UR RARE Squamous (<= Few)
[2017-12-31 22:10] VITALS: BP 142/76
== END 2017-12-31 22:17 | disposition home or self-care (01) ==
LOC: ED 19:58
DX: N39.0 Urinary tract infection, site not specified (principal); F03.90 Unspecified dementia, unspecified severity, without behavioral disturbance, psychotic disturbance, mood disturbance, and anxiety; I10 Essential (primary) hypertension; E03.9 Hypothyroidism, unspecified; Z85.89 Personal history of malignant neoplasm of other organs and systems; Z86.73 Personal history of transient ischemic attack (TIA), and cerebral infarction without residual deficits
CPT/HCPCS: 36415; 74022; 80053; 81001; 83690; 85025; 87086; 87181; 96361; 96374; 99283; 99284; A9270; 81003

== ENCOUNTER 2018-03-21 19:05 | Outpatient (CLI) | payer MEDICARE, OTHER, MEDICAID | END 2018-03-21 19:06 | disposition critical access hospital (66) | LOC: EMS 19:05 | PROVIDERS: ATTEND Surgery | DX: R41.82 Altered mental status, unspecified (principal); R29.810 Facial weakness; R50.9 Fever, unspecified | CPT/HCPCS: A0425; A0427 ==

== ENCOUNTER 2018-03-21 19:13 | Inpatient (IN) | payer MEDICARE, OTHER, MEDICAID ==
[2018-03-21] MEDS ORDERED: SODIUM CHLORIDE 0.9% 2,000 ML IV ONE (19:30)
--- NOTE | 2018-03-21 19:30 | ED Physician Documentation ---
History of Present Illness - Stated complaint Stated Complaint: AMS - Chief complaint Chief Complaint: Neuro - History obtained from History obtained from: Family, EMS - History of Present Illness Timing: Today Pain level max: 0 Pain level now: 0 Improved by: nothing Worsened by: nothing - Additonal information Additional information: Patient is a 72-year-old female who lives at [facility]. She was found to be more altered than usual today. Also had a temperature of 103.6. She reportedly was not eating or drinking much throughout the day. She is at [facility] because she has had 2 prior strokes. She is also normally verbal and has now become nonverbal. Patient has a POLST form which is DNR, limited interventions. Her is at bedside and does not want any central lines placed or pressors used. Review of Systems Unable to obtain: AMS PD PAST MEDICAL HISTORY - Past Medical History Cardiovascular: Hypertension Respiratory: None Endocrine/Autoimmune: HyPOthyroidism GI: None : Renal insuffiency HEENT: None Psych: None Musculoskeletal: None Derm: None - Past Surgical History Past Surgical History: Yes General: Cholecystectomy, Appendectomy - Present Medications Home Medications: Ambulatory Orders Medication Instructions Recorded Confirmed Atorvastatin [Lipitor] 80 mg PO QPM #0 09/12/17 09/10/17 Clopidogrel [Plavix] 75 mg PO DAILY #0 09/12/17 09/10/17 Divalproex [Bandar Garg] 250 mg PO BID #0 09/12/17 09/10/17 FLUoxetine [PROzac] 40 mg PO DAILY #0 09/12/17 09/10/17 Levothyroxine [Synthroid] 50 mcg PO QDAC #0 09/12/17 09/10/17 Oxycodone HCl/Acetaminophen 1 each PO Q6H PRN #0 09/12/17 09/10/17 [Oxycodone-Acetaminophen 5-325] levoFLOXacin [Levaquin] 250 mg PO DAILY tablet 09/12/17 metroNIDAZOLE [Flagyl] 250 mg PO Q6HR tablet 09/12/17 Nitrofurantoin Monohyd/M-Cryst 100 mg PO BID 5 Days capsule 12/31/17 [Macrobid 100 mg Capsule] Ondansetron Odt [Zofran] 4 mg TL Q6H PRN #14 tablet 12/31/17 - Allergies Allergies/Adverse Reactions: Allergies Allergy/AdvReac Type Severity Reaction Status Date / Time codeine Allergy Unknown Verified 11/02/17 19:30 - Social History Does the pt smoke?: No Smoking Status: Never smoker Does the pt drink ETOH?: No Does the pt have substance abuse?: No - Immunizations Immunizations are current?: Yes - POLST Patient has POLST: Yes PD ED PE NORMAL - Vitals Vital signs reviewed: Yes - General General: Other (non-verbal, drowsy) - HEENT HEENT: PERRL, Other (dry lips) - Neck Neck: Supple, no meningeal sign - Cardiac Cardiac: Other (tachycardic) - Respiratory Respiratory: No respiratory distress, Clear bilaterally - Abdomen Abdomen: Soft, Non tender, Non distended - Back Back: No CVA TTP - Derm Derm: Warm and dry, No rash - Extremities Extremities: No edema - Neuro Neuro: Other (drowsy, but arousable. non-verbal) Results - Vitals Vitals: Vital Signs - 24 hr 03/21/18 03/21/18 03/21/18 19:16 20:43 21:25 Temperature 37.8 C H 39.1 C H 38.1 C H Heart Rate 128 H 124 H Respiratory 22 22 Rate Blood Pressure 145/87 H 142/89 H O2 Saturation 95 96 Oxygen O2 Source [Without Activity] Nasal cannula O2 Source Room air - Labs Labs: Laboratory Tests 03/21/18 03/21/18 03/21/18 19:35 19:35 19:39 WBC 8.7 RBC 3.87 L Hgb 11.4 L Hct 35.4 L MCV 91.6 MCH 29.5 MCHC 32.2 RDW 14.8 Plt Count 247 MPV 8.0 Neut # (Auto) 7.1 H Lymph # (Auto) 0.7 L [place] # (Auto) 0.9 Eos # (Auto) 0.0 Baso # (Auto) 0.1 Absolute Nucleated RBC 0.00 Nucleated RBC % 0.0 Sodium 134 L Potassium 4.7 Chloride 99 L Carbon Dioxide 26 Anion Gap 9.0 BUN 26 H Creatinine 1.0 Estimated GFR (MDRD) 54 L Glucose 147 H Lactic Acid Calcium 9.3 Magnesium Total Bilirubin 0.4 AST 33 ALT 13 Alkaline Phosphatase 71 Troponin I < 0.04 Total Protein 8.5 H Albumin 3.2 Globulin 5.3 H Albumin/Globulin Ratio 0.6 L Lipase 35 Urine Color Urine Clarity Urine pH Ur Specific [place] Urine Protein Urine Glucose (UA) Urine Ketones Urine Occult Blood Urine Nitrite Urine Bilirubin Urine Urobilinogen Ur Leukocyte Esterase Urine RBC Urine WBC Ur Squamous Epith Cells Amorphous Sediment Urine Bacteria Ur Microscopic Review Urine Culture Comments 03/21/18 03/21/18 03/21/18 19:39 20:36 20:52 WBC RBC Hgb Hct MCV MCH MCHC RDW Plt Count MPV Neut # (Auto) Lymph # (Auto) [place] # (Auto) Eos # (Auto) Baso # (Auto) Absolute Nucleated RBC Nucleated RBC % Sodium Potassium Chloride Carbon Dioxide Anion Gap BUN Creatinine Estimated GFR (MDRD) Glucose Lactic Acid 2.2 Calcium Magnesium 2.1 Total Bilirubin AST ALT Alkaline Phosphatase Troponin I Total Protein Albumin Globulin Albumin/Globulin Ratio Lipase Urine Color YELLOW Urine Clarity CLOUDY Urine pH 6.5 Ur Specific [place] 1.015 Urine Protein 30 H Urine Glucose (UA) NEGATIVE Urine Ketones NEGATIVE Urine Occult Blood SMALL H Urine Nitrite POSITIVE H Urine Bilirubin NEGATIVE Urine Urobilinogen 0.2 (NORMAL) Ur Leukocyte Esterase TRACE H Urine RBC 6-10 H Urine WBC 6-10 H Ur Squamous Epith Cells FEW Squamous Amorphous Sediment Moderate Urine Bacteria Many H Ur Microscopic Review INDICATED Urine Culture Comments INDICATED - Rads (name of study) cxr Radiology: Prelim report reviewed, EMP read contemporaneously, See rad report ( no acute disease) PD MEDICAL DECISION MAKING - ED course Complexity details: reviewed old records, reviewed results, re-evaluated patient , considered differential, d/w patient, d/w family, d/w solutions consultant ED course: Patient is a 72-year-old female who presents to the emergency department with what appears to be urosepsis. IV fluids given. She is a DNR with limited interventions. Her does not want a central line or pressors. I think this is reasonable. He is okay with IV fluids as well as antibiotics. Her hypotension responded well to fluids. Patient was given broad-spectrum antibiotics. Discussed the case with Dr. Macias, hospitalist who accepts. This document was made in part using voice recognition software. While efforts are made to proofread this document, sound alike and grammatical errors may occur. - Sepsis Event Vital Signs: Vital Signs - 24 hr 03/21/18 03/21/18 03/21/18 19:16 20:43 21:25 Temperature 37.8 C H 39.1 C H 38.1 C H Heart Rate 128 H 124 H Respiratory 22 22 Rate Blood Pressure 145/87 H 142/89 H O2 Saturation 95 96 Oxygen O2 Source [Without Activity] Nasal cannula O2 Source Room air Departure - Departure Disposition: [facility] DC/Xfer Clinical Impression: Tachycardia UTI (urinary tract infection) Qualifiers: Urinary tract infection type: acute pyelonephritis Qualified Code(s): N10 - Acute pyelonephritis Sepsis Qualifiers: Sepsis type: sepsis due to unspecified organism Qualified Code(s): A41.9 - Sepsis, unspecified organism Fever Qualifiers: Fever type: unspecified Qualified Code(s): R50.9 - Fever, unspecified Condition: Serious Discharge Date/Time: 03/21/18 22:23
[2018-03-21 19:50] LABS: BASOPHILS # (AUTO) 0.1 10^3/uL (0.0-0.1); BASOPHILS % (AUTO) 0.9 %; EOSINOPHILS % (AUTO) 0.3 %; HGB - HEMOGLOBIN 11.4 g/dL (12.0-16.0); LYMPHOCYTES # (AUTO) 0.7 10^3/uL (1.5-3.5); LYMPHOCYTES % (AUTO) 8.3 %; MEAN CORPUSCULAR HEMOGLOBIN 29.5 pg (27.0-31.0); MEAN CORPUSCULAR HGB CONC 32.2 g/dL (32.0-36.0); MEAN CORPUSCULAR VOLUME 91.6 fL (81.0-99.0); MONOCYTES # (AUTO) 0.9 10^3/uL (0.0-1.0); MONOCYTES % (AUTO) 9.8 %; NEUTROPHILS # (AUTO) 7.1 10^3/uL (1.5-6.6); NEUTROPHILS % (AUTO) 80.7 %; PLT - PLATELET COUNT 247 10^3/uL (130-450); RED BLOOD COUNT 3.87 10^6/uL (4.20-5.40); RED CELL DISTRIBUTION WIDTH 14.8 % (12.0-15.0); WHITE BLOOD COUNT 8.7 x10^3/uL (4.8-10.8)
[2018-03-21 20:05] LABS: ALBUMIN 3.2 g/dL (3.2-5.5); ALBUMIN/GLOBULIN RATIO 0.6 (1.0-2.2); BILIRUBIN,TOTAL 0.4 mg/dL (0.2-1.0); CALCIUM 9.3 mg/dL (8.5-10.3); TOTAL PROTEIN 8.5 g/dL (6.7-8.2)
[2018-03-21] MEDS ORDERED: SODIUM CHLORIDE 0.9% 1,000 ML IV ONE (20:12)
--- NOTE | 2018-03-21 20:18 | XRAY Preliminary Report ---
Exam: XR CHEST 1 VIEW X-RAY IMPRESSION: No acute cardiopulmonary process. RADI SITE ID: [id number]
--- NOTE | 2018-03-21 20:18 | XRAY Report ---
EXAM: CHEST RADIOGRAPHY EXAM DATE: 03/21/2018 07:54 PM. CLINICAL HISTORY: Cough, fever. COMPARISON: 03/21/2018 chest x-ray. TECHNIQUE: 1 view. FINDINGS: Lungs/Pleura: No focal opacities evident. No pleural effusion. No pneumothorax. Mediastinum: Within exam limitations, the cardiomediastinal contour is normal. Other: None. IMPRESSION: No acute cardiopulmonary process. RADIA Referring Provider Line: [phone] SITE ID: [id number]
[2018-03-21] MEDS ORDERED: PIPERACILLIN/TAZOBACTAM 4.5 GM in SODIUM CHLORIDE 0.9% MINIBAG 100 ML IV STA (20:28)
[2018-03-21] MEDS ORDERED: VANCOMYCIN INJ 1 GM in SODIUM CHLORIDE 0.9% 500 ML IV STA (20:28)
[2018-03-21] MEDS ORDERED: ACETAMINOPHEN 1,000 MG/100 ML 100 ML IV STA (20:44)
[2018-03-21 20:46] LABS: BILIRUBIN,URINE NEGATIVE (NEGATIVE); CLARITY,URINE CLOUDY (CLEAR); GLUCOSE, URINE (UA) NEGATIVE (NEGATIVE); KETONES,URINE (UA) NEGATIVE (NEGATIVE); LEUKOCYTE ESTERASE, URINE TRACE (NEGATIVE); NITRITE,URINE POSITIVE (NEGATIVE); OCCULT BLOOD,URINE SMALL (NEGATIVE); PH,URINE 6.5 PH (5.0-7.5); PROTEIN,URINE 30 mg/dL (NEGATIVE); UROBILINOGEN,URINE 0.2 (NORMAL) E.U./dL (NORMAL)
[2018-03-21 20:53] LABS: AMORPHOUS SEDIMENT,UR Moderate /LPF; BACTERIA,URINE Many /HPF (None Seen); SQUAMOUS EPITHELIAL CELL,UR FEW Squamous (<= Few)
[2018-03-21] MEDS ORDERED: ACETAMINOPHEN 325 MG TABLET PO PRN (21:51)
[2018-03-21] MEDS ORDERED: ONDANSETRON 4 MG/2 ML VIAL IVP PRN (21:51)
[2018-03-21] MEDS ORDERED: CEFEPIME 2 GM in SODIUM CHLORIDE 0.9% MINIBAG 100 ML IV STA (21:56)
[2018-03-21] MEDS ORDERED: VANCOMYCIN PER PHARMACY 0.000001 GM in SODIUM CHLORIDE 0.9% 250 ML IV PRN (21:56)
[2018-03-21] MEDS: DEXTROSE 5%-0.9% NACL 1,000 ML IV SCH (23:24)
[2018-03-21] MEDS: CEFEPIME 1 GM in SODIUM CHLORIDE 0.9% MINIBAG 100 ML IV SCH (23:25)
[2018-03-21 23:40] LABS: INR 1.2 (0.8-1.2); PT - PROTHROMBIN TIME 13.3 secs (9.9-12.6)
[2018-03-22] MEDS ORDERED: oxyCOD/ACETAMIN 5 MG/325 MG TABLET PO PRN (00:01)
[2018-03-22] MEDS ORDERED: HYDROmorphone 2 MG/ML VIAL IVP PRN (00:02)
[2018-03-22] MEDS: SODIUM CHLORIDE FLUSH 0.9% 10 ML SYRINGE IVP SCH ×4 (04:20→22:38)
[2018-03-22 05:27] LABS: BASOPHILS # (AUTO) 0.1 10^3/uL (0.0-0.1); BASOPHILS % (AUTO) 0.8 %; EOSINOPHILS % (AUTO) 0.2 %; HGB - HEMOGLOBIN 9.6 g/dL (12.0-16.0); LYMPHOCYTES # (AUTO) 0.9 10^3/uL (1.5-3.5); LYMPHOCYTES % (AUTO) 12.3 %; MEAN CORPUSCULAR HEMOGLOBIN 29.9 pg (27.0-31.0); MEAN CORPUSCULAR HGB CONC 32.6 g/dL (32.0-36.0); MEAN CORPUSCULAR VOLUME 91.9 fL (81.0-99.0); MEAN PLATELET VOLUME 7.4 fL (7.9-10.8); MONOCYTES # (AUTO) 1.1 10^3/uL (0.0-1.0); MONOCYTES % (AUTO) 14.7 %; NEUTROPHILS # (AUTO) 5.4 10^3/uL (1.5-6.6); PLT - PLATELET COUNT 189 10^3/uL (130-450); RED CELL DISTRIBUTION WIDTH 14.9 % (12.0-15.0); WHITE BLOOD COUNT 7.6 x10^3/uL (4.8-10.8)
[2018-03-22 05:38] LABS: CREATININE 0.7 mg/dL (0.4-1.0)
[2018-03-22] MEDS: ACETAMINOPHEN 1,000 MG/100 ML 100 ML IV PRN ×2 (06:33→13:15)
[2018-03-22] MEDS ORDERED: PANTOPRAZOLE 40 MG VIAL IVP SCH (07:00)
[2018-03-22] MEDS ORDERED: LEVOTHYROXINE 25 MCG TABLET PO SCH (07:00)
--- NOTE | 2018-03-22 07:15 | PROVIDER PROGRESS NOTE ---
Subjective - Prog Note Date Prog Note Date: 03/22/18 Prog Note Time: 07:14 - Subjective Pt reports feeling: Improved Subjective: The patient offers no complaints when asked, but appears uncomfortable. , Musa is her POA and is at the bedside for her exam. Presented the idea of Palliative care consult as extra support from Morelia Gaviria would prove to be very beneficial. Current Medications - Current Medications Current Medications: Active Medications Hydromorphone HCl (Dilaudid Inj Syringe) 1 mg IVP Q4H PRN PRN Reason: SEVERE PAIN Last Admin: 03/22/18 22:37 Dose: 1 mg Dextrose/Sodium Chloride (D5ns) 1,000 mls @ 100 mls/hr IV .Q10H JONA Last Admin: 03/23/18 06:55 Dose: 100 mls/hr Acetaminophen (Ofirmev) 100 mls @ 400 mls/hr IV Q6HR PRN PRN Reason: PAIN Last Infusion: 03/23/18 01:20 Dose: Infused Ampicillin Sodium/Sulbactam (Sodium 3 gm/ Sodium Chloride) 100 mls @ 200 mls/ hr IV Q6HR JONA Last Infusion: 03/23/18 06:40 Dose: Infused Levothyroxine Sodium (Synthroid Inj) 25 mcg IVP QDAC JONA Last Admin: 03/23/18 06:57 Dose: 25 mcg Ondansetron HCl (Zofran Inj) 4 mg IVP Q6HR PRN PRN Reason: Nausea / Vomiting Sodium Chloride (Normal Saline Flush 0.9%) 10 ml IVP PRN PRN PRN Reason: NEEDED PER PROVIDER ORDERS Last Admin: 03/22/18 11:11 Dose: 10 ml Sodium Chloride (Normal Saline Flush 0.9%) 10 ml IVP 0100,0900,1700 JONA Last Admin: 03/22/18 22:38 Dose: 10 ml Acetaminophen [Tylenol] 650 mg PO Q6H PRN 03/21/18 Cyanocobalamin (Vitamin B-12) [Vitamin B-12] 1,000 mcg PO DAILY 03/21/18 Cyclobenzaprine HCl 5 mg PO Q8HR PRN 03/21/[address] [Depakote Dr] 500 mg PO BID 03/21/18 Ferrous Gluconate 240 mg PO DAILY 03/21/18 Folic Acid 0.4 mg PO DAILY 03/21/18 Mirtazapine 7.5 mg PO DAILY 03/21/18 Objective - Vital Signs/Intake & Output Reviewed Vital Signs: Yes Vital Signs: Vital Signs x48h Temp Pulse Resp BP Pulse Ox 03/22/18 05:00 87 25 H 122/95 H 99 03/22/18 04:00 36.8 C 87 21 126/88 H 94 03/22/18 03:00 86 21 112/75 94 03/22/18 02:00 81 19 127/81 H 96 03/22/18 01:02 86 20 104/91 H 98 03/21/18 23:55 92 18 103/66 97 03/21/18 23:30 95 23 89/66 L 100 Intake & Output: Intake & Output 03/19/18 03/20/18 03/21/18 03/22/18 23:59 23:59 23:59 23:59 Intake Total 2900 200 Balance 2900 200 - Objective General Appearance: positive: Alert, Moderate distress, Lethargic Eyes Bilateral: positive: Normal inspection ENT: positive: ENT inspection nml, Pharyngeal erythema, Dry mucous membranes Neck: positive: Nml inspection, No JVD Respiratory: positive: Chest non-tender, Wheezes, Rhonchi Cardiovascular: positive: Irregularly irregular, Systolic murmur, Decreased pulse(s) Peripheral Pulses: 0 Radial (L) (faint pulse due to wrist brace), 1+ Radial (R) Abdomen: positive: Non-tender, Abnml bowel sounds (hyperactive, tenderness with palpation.) Back: positive: Nml inspection Skin: positive: No rash, Warm, Dry, Diaphoresis, Pallor Extremities: positive: Pedal edema, Joint swelling, Other (increased swelling left greater than right caused by CVA and left sided flaccid.) Neurologic/Psychiatric: positive: Disoriented to place, Disoriented to time, Weakness, Sensory loss, Slurred/abnml speech, Depressed mood/affect, Other ( baseline cognitive delay) Reflexes: Bicep (R): 1+, Bicep (L): 0, Ankle (L): 0 - Lab Results Fish Bones: 03/24/18 05:00 03/24/18 05:00 Other Labs: Lab Results x24hrs 03/22/18 03/22/18 03/21/18 Range/Units 05:16 05:16 23:22 WBC 7.6 (4.8-10.8) x10^3/uL RBC 3.20 L (4.20-5.40) 10^6/uL Hgb 9.6 L (12.0-16.0) g/dL Hct 29.4 L (37.0-47.0) % MCV 91.9 (81.0-99.0) fL MCH 29.9 (27.0-31.0) pg MCHC 32.6 (32.0-36.0) g/dL RDW 14.9 (12.0-15.0) % Plt Count 189 (130-450) 10^3/uL MPV 7.4 L (7.9-10.8) fL Neut # (Auto) 5.4 (1.5-6.6) 10^3/uL Lymph # (Auto) 0.9 L (1.5-3.5) 10^3/uL [place] # (Auto) 1.1 H (0.0-1.0) 10^3/uL Eos # (Auto) 0.0 (0.0-0.7) 10^3/uL Baso # (Auto) 0.1 (0.0-0.1) 10^3/uL Absolute Nucleated RBC 0.00 x10^3/uL Nucleated RBC % 0.1 /100WBC PT (9.9-12.6) secs INR (0.8-1.2) APTT (24.9-33.3) secs Sodium 138 (135-145) mmol/L Potassium 3.7 (3.5-5.0) mmol/L Chloride 109 (101-111) mmol/L Carbon Dioxide 22 (21-32) mmol/L Anion Gap 7.0 (6-13) BUN 19 (6-20) mg/dL Creatinine 0.7 (0.4-1.0) mg/dL Estimated GFR (MDRD) 82 L (>89) Glucose 139 H (70-100) mg/dL Lactic Acid 0.9 (0.5-2.2) mmol/L Calcium 8.0 L (8.5-10.3) mg/dL 03/21/18 Range/Units 23:22 WBC (4.8-10.8) x10^3/uL RBC (4.20-5.40) 10^6/uL Hgb (12.0-16.0) g/dL Hct (37.0-47.0) % MCV (81.0-99.0) fL MCH (27.0-31.0) pg MCHC (32.0-36.0) g/dL RDW (12.0-15.0) % Plt Count (130-450) 10^3/uL MPV (7.9-10.8) fL Neut # (Auto) (1.5-6.6) 10^3/uL Lymph # (Auto) (1.5-3.5) 10^3/uL [place] # (Auto) (0.0-1.0) 10^3/uL Eos # (Auto) (0.0-0.7) 10^3/uL Baso # (Auto) (0.0-0.1) 10^3/uL Absolute Nucleated RBC x10^3/uL Nucleated RBC % /100WBC PT 13.3 H (9.9-12.6) secs INR 1.2 (0.8-1.2) APTT 26.9 (24.9-33.3) secs Sodium (135-145) mmol/L Potassium (3.5-5.0) mmol/L Chloride (101-111) mmol/L Carbon Dioxide (21-32) mmol/L Anion Gap (6-13) BUN (6-20) mg/dL Creatinine (0.4-1.0) mg/dL Estimated GFR (MDRD) (>89) Glucose (70-100) mg/dL Lactic Acid (0.5-2.2) mmol/L Calcium (8.5-10.3) mg/dL - Diagnostic Imaging Diagnostic Imaging Results: positive: Final report reviewed ABX Reporting Has patient been on IV antibiotics over the past 48 hours?: Yes Assessment/Plan - Problem List (1) Hypothyroidism Impression: The patient has a known history of this and takes a low dose Synthroid at [facility] where she is a permanent resident. She is found to have a very elevated TSH of 30.56, so her oral dose is now changed to IV and we will increase the dose. Plan: Continue treatment and re-check in 4-6 weeks, or when appropriate. Qualifiers: Hypothyroidism type: acquired Qualified Code(s): E03.9 - Hypothyroidism, unspecified (2) Sepsis Impression: The patient presented to the ED with sepsis like symptoms such as altered mental status, tachycardia and a lactic acid of 2.2. Her urinary tract appears to be the source. Blood pressure is also noted to be low at 88/66. The patient continues to be lethargic, tachycardic and her blood pressures have mildly improved to 112/75. She has been febrile with a temp max of 39.1, that has now normalized. She is now ruled out of sepsis, but will likely be found to have her lungs be a contributing factor with the suspicion of aspiration given her profound weakness. Plan: Continue to monitor AM labs and overall condition. Qualifiers: Sepsis type: sepsis due to unspecified organism Qualified Code(s): A41.9 - Sepsis, unspecified organism (3) UTI (urinary tract infection) Impression: A urine sample was obtained upon admission shows +UTI with many bacteria and + nitrites, etc. Cultures are indicated and pending. Plan: IV antibiotics were changed today to Unasyn to cover UTI and aspiration PNA. Qualifiers: Urinary tract infection type: acute pyelonephritis Qualified Code(s): N10 - Acute pyelonephritis (4) Aspiration into airway Impression: The patient has a prominent history of throat cancer and consequently has had difficulty swallowing since radiation to her neck. She previously was on a nectar thickened diet while at the SNF as she is a senior living resident there. A preliminary swallow evaluation indicates the need for further studies, which was ordered. Plan: Barium swallow evaluation under [place] in the AM, and keep NPO. Qualifiers: Encounter type: subsequent encounter Qualified Code(s): T17.908D - Unspecified foreign body in respiratory tract, part unspecified causing other injury, subsequent encounter (5) End of life care Impression: A palliative consult was made for the patient's inability to appropriately swallow and her failing medical state. Morelia Coleslley will plan to evaluate tomorrow. Plan: Continue NPO status and good oral care. 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 She is now unable to protect her air way, but this may also be due to radiation therapy to the neck region for throat cancer in 2014. Plan: Bed rest with turns and await Palliative care consult.
[2018-03-22] MEDS ORDERED: FLUoxetine 10 MG CAPSULE PO SCH (09:00)
[2018-03-22] MEDS ORDERED: CLOPIDOGREL 75 MG TABLET PO SCH (09:00)
[2018-03-22] MEDS ORDERED: DIVALPROEX DR 125 MG TABLET PO SCH (09:00)
[2018-03-22] MEDS ORDERED: POLYETHYLENE GLYCOL 3350 17 GM PACKET PO SCH (09:00)
--- NOTE | 2018-03-22 10:34 | HISTORY & PHYSICAL EXAMINATION ---
DATE OF SERVICE: 03/21/2018 Physician: Jade Louis MD HISTORY OF PRESENT ILLNESS: This is a 72-year-old white female who has history of an extensive stroke leaving her with left-sided weakness and she is, therefore, a [facility] at a prison. She normally is both active and conversant, and today she had less awake behavior and had altered mental status as well as a temperature of 103. She was brought to the emergency room and had a heart rate of 130, and labs showed lactic acid present, and she is being admitted for urosepsis. MEDICATIONS 1. Compazine p.r.n. 2. Percocet p.r.n. 3. Tylenol with codeine p.r.n. 4. Cyclobenzaprine p.r.n. 5. Tylenol p.r.n. 6. Depakote 500 b.i.d. 7. Mirtazapine 7.5 mg daily. 8. Synthroid 50 mcg daily. 9. Folic acid daily. 10. Iron gluconate daily. 11. B12 daily. 12. Plavix 75 mg daily. 13. Lipitor 80 mg daily. ALLERGIES: CODEINE. REVIEW OF SYSTEMS: A comprehensive review of systems was performed from chart review, and the pertinent positives are above. SOCIAL HISTORY: She lives in a prison. No smoking. No alcohol. No illicit drug use. FAMILY HISTORY: No inherited diseases. PHYSICAL EXAMINATION GENERAL: Elderly white female. She is complaining of pain in the foot, which is a chronic complaint. VITAL SIGNS: Blood pressure 99/60, pulse 107 currently afebrile, room air saturation 96%. HEENT: Dry oral mucosa. NECK: Without JVD or carotid bruits. LUNGS: Clear. CARDIOVASCULAR: Heart sounds distant. ABDOMEN: Soft. EXTREMITIES: Contractures and she has marked left-sided weakness. NEUROLOGIC: Fatigued, L sided weakness noted. LABORATORY/DATA: Sodium 134, potassium 4.7, BUN 26, creatinine 1.0. Lactic acid 2.2, magnesium 2.1. Normal liver tests. Troponin not detectable. White blood count 8.7 with a left shift, hemoglobin 11.4 with a normal MCV, platelet count normal. INR normal. Urinalysis had many bacteria, nitrite positive, leukocyte esterase trace. ASSESSMENT 1. Severe sepsis with altered mental status, tachycardia, and lactic acidosis. 2. Urosepsis from UTI, as the urine appears to be the source. 3. Old stroke with left-sided weakness and chronic pain on the left leg. 4. Hypothyroidism. PLAN: Admit the patient in a med/surg bed. The , who is her POA, reports that she is a DNR with limited intervention; however, is agreeable to fluids and antibiotics. No pressors will be started, no central line will be placed. Fully culture the patient ( blood and urine), and begin empiric iv vancomycin and cefepime. Begin fluids for suspected hypovolemia and dehydration noted clinically. DEEP VENOUS THROMBOSIS PROPHYLAXIS: Sequential compression devices. CODE STATUS: DNR. ATTESTATION: The patient is expected to be discharged or transferred to another facility within 96 hours: Yes. TD: 03/22/2018 00:07 EDMUND
[2018-03-22] MEDS: DEXTROSE 5%-0.9% NACL 1,000 ML IV SCH ×2 (10:36→20:19)
[2018-03-22] MEDS: CEFEPIME 1 GM in SODIUM CHLORIDE 0.9% MINIBAG 100 ML IV SCH (11:07)
[2018-03-22] MEDS: SODIUM CHLORIDE FLUSH 0.9% 10 ML SYRINGE IVP PRN (11:11)
[2018-03-22] MEDS: HYDROmorphone 1 MG/ML SYRINGE IVP PRN ×3 (11:11→22:37)
[2018-03-22] MEDS: LEVOTHYROXINE 100 MCG VIAL IVP SCH (17:53)
[2018-03-22] MEDS: AMPICILLIN/SULBACTAM 3 GM in SODIUM CHLORIDE 0.9% MINIBAG 100 ML IV SCH (17:54)
[2018-03-22] MEDS ORDERED: LORazepam 2 MG/ML VIAL IVP SCH (18:00)
[2018-03-22] MEDS ORDERED: VANCOMYCIN INJ 1 GM in SODIUM CHLORIDE 0.9% 250 ML IV SCH (21:00)
[2018-03-23] MEDS: AMPICILLIN/SULBACTAM 3 GM in SODIUM CHLORIDE 0.9% MINIBAG 100 ML IV SCH ×5 (00:14→23:47)
[2018-03-23] MEDS: ACETAMINOPHEN 1,000 MG/100 ML 100 ML IV PRN (01:01)
[2018-03-23 06:13] LABS: BASOPHILS # (AUTO) 0.1 10^3/uL (0.0-0.1); BASOPHILS % (AUTO) 0.7 %; EOSINOPHILS # (AUTO) 0.1 10^3/uL (0.0-0.7); EOSINOPHILS % (AUTO) 1.3 %; HGB - HEMOGLOBIN 8.3 g/dL (12.0-16.0); MEAN CORPUSCULAR HEMOGLOBIN 29.7 pg (27.0-31.0); MEAN CORPUSCULAR HGB CONC 32.5 g/dL (32.0-36.0); MEAN CORPUSCULAR VOLUME 91.4 fL (81.0-99.0); MEAN PLATELET VOLUME 7.2 fL (7.9-10.8); MONOCYTES % (AUTO) 12.2 %; NEUTROPHILS # (AUTO) 6.1 10^3/uL (1.5-6.6); NEUTROPHILS % (AUTO) 73.8 %; PLT - PLATELET COUNT 171 10^3/uL (130-450); RED BLOOD COUNT 2.81 10^6/uL (4.20-5.40); RED CELL DISTRIBUTION WIDTH 14.5 % (12.0-15.0); WHITE BLOOD COUNT 8.3 x10^3/uL (4.8-10.8)
[2018-03-23 06:17] LABS: CREATININE 0.6 mg/dL (0.4-1.0)
[2018-03-23] MEDS: DEXTROSE 5%-0.9% NACL 1,000 ML IV SCH ×2 (06:55→17:39)
[2018-03-23] MEDS: LEVOTHYROXINE 100 MCG VIAL IVP SCH (06:57)
--- NOTE | 2018-03-23 08:00 | PROVIDER PROGRESS NOTE ---
Subjective - Prog Note Date Prog Note Date: 03/23/18 Prog Note Time: 07:59 - Subjective Pt reports feeling: No change Subjective: Keysha offers no complaints and remains sleepy upon exam. Her is at the bedside. Objective - Vital Signs/Intake & Output Reviewed Vital Signs: Yes Vital Signs: Vital Signs x48h Temp Pulse Resp BP Pulse Ox 03/23/18 07:43 36.9 C 96 18 131/70 H 95 03/23/18 00:05 36.5 C 105 H 16 143/65 H 95 03/23/18 00:00 36.5 C 110 H 18 134/76 H 96 Intake & Output: Intake & Output 03/20/18 03/21/18 03/22/18 03/23/18 23:59 23:59 23:59 23:59 Intake Total 2900 2471.667 1300 Output Total 700 800 Balance 2900 1771.667 500 - Objective General Appearance: positive: No acute distress, Lethargic Eyes: OU Conjunctivae pale, OU Scleral icterus ENT: positive: Pharyngeal erythema, Dry mucous membranes Neck: positive: No JVD, Lymphadenopathy (R), Lymphadenopathy (L), Stiff neck Respiratory: positive: Chest non-tender, Rhonchi Cardiovascular: positive: No gallop, Irregularly irregular, Systolic murmur, Decreased pulse(s) Peripheral Pulses: 1+ Radial (L), 2+ Radial (R) Abdomen: positive: Non-tender, Nml bowel sounds Back: positive: Nml inspection Skin: positive: No rash, Warm, Cyanosis, Diaphoresis, Pallor Extremities: positive: Non-tender, Pedal edema (swelling in BLE, left greater than right.), Joint swelling Neurologic/Psychiatric: positive: Disoriented to place, Disoriented to time, Weakness, Sensory loss, Slurred/abnml speech, Depressed mood/affect, Other ( baseline left sided weakness, and 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) Reflexes: Bicep (R): 1+, Bicep (L): 0 - Lab Results Fish Bones: 03/24/18 05:00 03/24/18 05:00 Other Labs: Lab Results x24hrs 03/23/18 03/23/18 03/23/18 Range/Units 05:53 05:53 05:53 WBC 8.3 (4.8-10.8) x10^3/uL RBC 2.81 L (4.20-5.40) 10^6/uL Hgb 8.3 L (12.0-16.0) g/dL Hct 25.7 L (37.0-47.0) % MCV 91.4 (81.0-99.0) fL MCH 29.7 (27.0-31.0) pg MCHC 32.5 (32.0-36.0) g/dL RDW 14.5 (12.0-15.0) % Plt Count 171 (130-450) 10^3/uL MPV 7.2 L (7.9-10.8) fL Neut # (Auto) 6.1 (1.5-6.6) 10^3/uL Lymph # (Auto) 1.0 L (1.5-3.5) 10^3/uL [place] # (Auto) 1.0 (0.0-1.0) 10^3/uL Eos # (Auto) 0.1 (0.0-0.7) 10^3/uL Baso # (Auto) 0.1 (0.0-0.1) 10^3/uL Absolute Nucleated RBC 0.00 x10^3/uL Nucleated RBC % 0.0 /100WBC Sodium 136 (135-145) mmol/L Potassium 2.8 L (3.5-5.0) mmol/L Chloride 108 (101-111) mmol/L Carbon Dioxide 22 (21-32) mmol/L Anion Gap 6.0 (6-13) BUN 10 (6-20) mg/dL Creatinine 0.6 (0.4-1.0) mg/dL Estimated GFR (MDRD) 98 (>89) Glucose 136 H (70-100) mg/dL Calcium 8.0 L (8.5-10.3) mg/dL TSH 30.56 H (0.34-5.60) uIU/mL - Diagnostic Imaging Diagnostic Imaging Results: positive: Final report reviewed ABX Reporting Has patient been on IV antibiotics over the past 48 hours?: Yes Assessment/Plan - Problem List (1) Hypothyroidism Impression: The patient has a known history of this and takes a low dose [facility] at [facility] a [facility]. She is found to have a very elevated TSH of 30.56, so her oral dose is now changed to IV and this dose has been increased to 50mcgs IV which converts to 100mcg oral dosing. Plan: Continue treatment and re-check in 4-6 weeks, or when appropriate. Qualifiers: Hypothyroidism type: acquired Qualified Code(s): E03.9 - Hypothyroidism, unspecified (2) Sepsis Impression: The patient presented to the ED with sepsis like symptoms such as altered mental status, tachycardia and a lactic acid of 2.2. Her urinary tract appears to be the source. Blood pressure is also noted to be low at 88/66. The patient continues to be lethargic, tachycardic and her blood pressures have mildly improved to 121/69. She has been febrile with a temp max of 39.1, that has now normalized. She is now ruled out of sepsis, but will likely be found to have her lungs be a contributing factor with the suspicion of aspiration given her profound weakness. The patient continues to improve and this is considered ruled out today. Plan: Continue to monitor AM labs and overall condition. Qualifiers: Sepsis type: sepsis due to unspecified organism Qualified Code(s): A41.9 - Sepsis, unspecified organism (3) UTI (urinary tract infection) Impression: A urine sample was obtained upon admission shows +UTI with many bacteria and + nitrites, etc. Cultures are show e. coli with sensitivities to Rochephin, and this was added today. IV antibiotics were changed yesterday to Unasyn to cover UTI and aspiration PNA. Plan: Monitor urine out put, continue treatment with Rochepin and Unasyn IV. Qualifiers: Urinary tract infection type: acute pyelonephritis Qualified Code(s): N10 - Acute pyelonephritis (4) Aspiration into airway Impression: The patient has a prominent history of throat cancer and consequently has had difficulty swallowing since radiation to her neck. 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 The patient has failed both a bedside swallow evaluation and an advanced barium swallow evaluation using FL. General surgery was consulted for a possible PEG who recommends a temporary Dubhoff feeding tube to allow her Plavix to wear off. Palliative care is now consulted for goals of care discussions. Dubhoff is now on hold due to a progression of end of life planning. Plan: Keep NPO, continue Unasyn, and frequent oral care. Qualifiers: Encounter type: subsequent encounter Qualified Code(s): T17.908D - Unspecified foreign body in respiratory tract, part unspecified causing other injury, subsequent encounter (5) End of life care Impression: A palliative consult was made for the patient's inability to appropriately swallow and her failing medical state. Morelia Gaviria had a long discussion with the patient's POA, Musa who is her of 52 years and tearful, but grateful to have Morelia. Plan: Continue NPO status and good oral care. 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 She is now unable to protect her air way, but this may also be due to radiation therapy to the neck region for throat cancer in 2013. Plan: Bed rest with turns, with frequent nursing care.
[2018-03-23] MEDS: HYDROmorphone 1 MG/ML SYRINGE IVP PRN ×3 (12:23→20:40)
[2018-03-23] MEDS: SODIUM CHLORIDE FLUSH 0.9% 10 ML SYRINGE IVP SCH ×3 (12:24→20:40)
--- NOTE | 2018-03-23 16:12 | XRAY Report ---
Procedure Date: 03/23/2018 Accession Number: [id number] / [id number] Procedure: FL - Modified Barium Swallow W/SP CPT Code: FULL RESULT: EXAM: Modified Barium Swallow W/SP DATE: 03/23/2018 4:06 PM CLINICAL HISTORY: aspiration COMPARISON: None TECHNIQUE: Various consistencies of barium were prepared and administered in conjunction with speech pathology. FINDINGS: The patient was unable to comply with the examination, and was unable to initiate swallowing. As such, the examination was terminated. IMPRESSION: Unable to assess swallowing, as the patient was unable to initiate a voluntary swallow during the course of the examination. Fluoroscopy time: 80 seconds; one spot image obtained (cine fluoroscopy recorded).
[2018-03-23] MEDS: LORazepam 2 MG/ML VIAL IVP PRN ×2 (17:35→23:39)
--- NOTE | 2018-03-23 19:53 | CONSULTATION NOTE ---
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 She has had aspiration pneumonia 2, but her presenting infection this time was a UTI. He reports with her increased confusion and weakness with the UTI, also resulted in increased weakness and difficulty with eating and swallowing. He does relate initially with her intensive treatment with her stroke she had made some progress, which included being more able to transfer, increased strength, this lasted for about 3 months, there was a delay in obtaining Medicaid, and did not have further treatment for several months. He reports her current functional status is pretty much where it is going to be per his understanding, which is a stand and pivot transfer on a circular disc, it is a 2 person to help her with transfers, and she does need assistance with feeding as this is become more difficult as well over the last several weeks. Patient does have a history of treatment for oral pharyngeal cancer in 2013, this did include chemotherapy and radiation she was treated from 05/2014-09/2014. There is some thought that some of her increasing dysphagia may be related to long-term effects of the radiation. On presentation patient is somewhat nonverbal, she will spit out a few words, she is making good eye contact, does attempt to participate in the conversation. Musa is not clear exactly how much she takes in all the time, he reports her baseline weight when she was functional was 120, she has been low as 98. During her treatment for her oropharyngeal cancer, she did have a tube feeding for 6 months, he managed at this point in time, so is quite familiar with this. He does believe she is getting at the place where this is most likely going to be a recommendation. They are waiting pending a barium swallow. Musa reports he does spend most days from at the half-way from 08-13 to be able to with her to help with lunch, and for 2 meals on Thursday. Medical/Surgical History - Past Medical History Cardiovascular: reports: Hypertension, Other Respiratory: reports: None (aspiration x 2), Pneumonia Neuro: CVA, Migraines, Other (left hemiplegia with left hand contracture;) Neuro: reports: CVA Endocrine/Autoimmune: reports: HyPOthyroidism GI: reports: Diverticulitis, Other (hx of oropharyngeal cancer 2013) : reports: Renal insuffiency, Other HEENT: reports: None Psych: reports: Depression Musculoskeletal: reports: Other Derm: reports: None MRSA Hx?: No Other Past Medical History: L UE contracture; left hand splint - Past Surgical History General: reports: Cholecystectomy, Appendectomy Social History - Living Situation Living arrangement: long-term Support System: Musa oversees care, there daily. has 3 children and 4 siblings. Family History - Family History Family History: Mother: , Father: Medications/Allergies - Medications Active Medication List: Active Medications Hydromorphone HCl (Dilaudid Inj Syringe) 1 mg IVP Q4H PRN PRN Reason: SEVERE PAIN Last Admin: 03/23/18 16:18 Dose: 1 mg Dextrose/Sodium Chloride (D5ns) 1,000 mls @ 100 mls/hr IV .Q10H JONA Last Admin: 03/23/18 17:39 Dose: 100 mls/hr Acetaminophen (Ofirmev) 100 mls @ 400 mls/hr IV Q6HR PRN PRN Reason: PAIN Last Infusion: 03/23/18 01:20 Dose: Infused Ampicillin Sodium/Sulbactam (Sodium 3 gm/ Sodium Chloride) 100 mls @ 200 mls/ hr IV Q6HR JONA Last Infusion: 03/23/18 18:27 Dose: Infused Levothyroxine Sodium (Synthroid Inj) 50 mcg IVP QDAC JONA Lorazepam (Ativan Inj (Vial)) 0.5 mg IVP Q2H PRN PRN Reason: Anxiety Last Admin: 03/23/18 17:35 Dose: 0.5 mg Ondansetron HCl (Zofran Inj) 4 mg IVP Q6HR PRN PRN Reason: Nausea / Vomiting Sodium Chloride (Normal Saline Flush 0.9%) 10 ml IVP PRN PRN PRN Reason: NEEDED PER PROVIDER ORDERS Last Admin: 03/22/18 11:11 Dose: 10 ml Sodium Chloride (Normal Saline Flush 0.9%) 10 ml IVP 0100,0900,1700 JONA Last Admin: 03/23/18 17:48 Dose: 10 ml Acetaminophen [Tylenol] 650 mg PO Q6H PRN 03/21/18 Cyanocobalamin (Vitamin B-12) [Vitamin B-12] 1,000 mcg PO DAILY 03/21/18 Cyclobenzaprine HCl 5 mg PO Q8HR PRN 03/21/[address] [Depakote Dr] 500 mg PO BID 03/21/18 Ferrous Gluconate 240 mg PO DAILY 03/21/18 Folic Acid 0.4 mg PO DAILY 03/21/18 Mirtazapine 7.5 mg PO DAILY 03/21/18 - Allergies Allergies/Adverse Reactions: Allergies Allergy/AdvReac Type Severity Reaction Status Date / Time codeine Allergy Unknown Verified 11/02/17 19:30 Review of Systems - Constitutional Constitutional: reports: Fatigue, Poor appetite - Ears, Nose & Throat Ears, Nose & Throat: reports: Other (increase difficulty with swallowing) - Respiratory Respiratory: reports: Cough, Sputum production (difficulty managing oral secretions), Wheezing - Gastrointestinal Gastrointestinal: reports: Other (npo) - Genitourinary Genitourinary: reports: Incontinence - Musculoskeletal Musculoskeletal: reports: Limited range of motion (left sided hemiplegia; with contracture left hand), Muscle weakness - Integumentary Integumentary: reports: Dryness - Neurological Neurological: reports: General weakness, Memory problems - Psychiatric Psychiatric: reports: Depression ( reports patient with flat affect at most times; and labile with emotions at times; cognitive dysfunction started with chemotherapy prior to strokes) - Hematologic/Lymphatic Hematologic/Lymphatic: reports: Anemia (residential chronic), Recurrent infections Physical Exam - Vital Signs Vital Signs: Vital Signs x48h Pulse Pulse Resp BP BP Pulse Ox 03/23/18 16:00 108 H 19 150/81 H 92 03/23/18 11:50 95 90/77 - Physical Exam General Appearance: positive: Mild distress (with managing secretions) Eyes Bilateral: positive: Normal inspection ENT: positive: Other (thick yellow secretions being suctioned orally) Neck: positive: Trachea midline Cardiovascular: positive: Regular rate & rhythm Respiratory: positive: Wheezes, Rhonchi Abdomen: positive: Non-tender, Soft, Nml bowel sounds Skin: positive: Pallor, Dryness Extremities: positive: No pedal edema Neurologic/Psychiatric: positive: Weakness, Slurred/abnml speech, Other (unable to discern orientation; very sweet and demonstrative towards ; appears to answer some questions appropriately and follow parts of conversation;) Palliative Care - POLST Patient has POLST: Yes POLST Status: DNR, Selective Treatment (POLST on file) Pain: Pain unchanged, Location (left sided central stroke pain; controlled at baseline with one percocet every 6 hours; has intermittent migraines per report as well) Tiredness/Fatigue: Moderate (4-6) Drowsiness/Sedation: Mild (1-3) Performance Status: Patient is a 2 person transfer on a pivot will at carriage, she is up in her wheelchair for meals, she does have left-sided weakness, no longer receiving any therapies. Has been does report she is sleeping more. - Palliative Care Discussion: Did review 's understanding of current condition, she has been quite ill as result of her urosepsis. He reports often it is hard to tell what is stroke versus personality versus infection when she is deteriorating. He reports he does make his decisions based on quality of life weighing benefits and burdens, he does have "zone he has marked out as far as how he sees was acceptable and not acceptable. He does report they have most of their wishes documented, they are both [employer], have been 52 years. He still has quite a lot of affection for her, though does express feelings of grief and loss as she has had ulcerations in her personality as well. He does feel good about her being at the long term facility, that she is safe there. He is cognizant as his own health has been tenuous, if something were to happen to him that this would be a good place for her to be. She is they are under Medicaid. He feels like she has often "a sense of not caring" in the moment, has been difficult with her cognitive dysfunction and Mood lability. He does worry most about "losing her", but does report it is more important to have quality versus quantity, has thought about "the bigger picture" and neither are afraid to , but do feel some increased vulnerability. In broaching the topic of feeding tubes, this is been in the context of their experience previously, he does understand the implications of this and what this looks like. He would at this point proceed with supporting her nutritionally with tube feedings, we did spend some time discussing in the context of the previous experience, with her fragility, and more weakened state , she still remains at high risk for aspiration and aspiration pneumonia, though this does decrease overall the severity of this risk as if she is not feeding. They are supported by Dr. Cortez Rodrigez, this is a new provider for them, we did discuss the role of palliative care in the context of ongoing support. Patient does report his experiences been in behavioral health managing , he does have a framework he works from as far is working out some of these difficulties for himself, and feels like he does do a fairly good job of coping. Results - Lab Results Lab results reviewed: Yes Fish Bones: 03/23/18 05:53 03/23/18 05:53 Lab and Imaging Results: Lab Results x24hrs 03/23/18 03/23/18 03/23/18 Range/Units 05:53 05:53 05:53 WBC 8.3 (4.8-10.8) x10^3/uL RBC 2.81 L (4.20-5.40) 10^6/uL Hgb 8.3 L (12.0-16.0) g/dL Hct 25.7 L (37.0-47.0) % MCV 91.4 (81.0-99.0) fL MCH 29.7 (27.0-31.0) pg MCHC 32.5 (32.0-36.0) g/dL RDW 14.5 (12.0-15.0) % Plt Count 171 (130-450) 10^3/uL MPV 7.2 L (7.9-10.8) fL Neut # (Auto) 6.1 (1.5-6.6) 10^3/uL Lymph # (Auto) 1.0 L (1.5-3.5) 10^3/uL [place] # (Auto) 1.0 (0.0-1.0) 10^3/uL Eos # (Auto) 0.1 (0.0-0.7) 10^3/uL Baso # (Auto) 0.1 (0.0-0.1) 10^3/uL Absolute Nucleated RBC 0.00 x10^3/uL Nucleated RBC % 0.0 /100WBC Sodium 136 (135-145) mmol/L Potassium 2.8 L (3.5-5.0) mmol/L Chloride 108 (101-111) mmol/L Carbon Dioxide 22 (21-32) mmol/L Anion Gap 6.0 (6-13) BUN 10 (6-20) mg/dL Creatinine 0.6 (0.4-1.0) mg/dL Estimated GFR (MDRD) 98 (>89) Glucose 136 H (70-100) mg/dL Calcium 8.0 L (8.5-10.3) mg/dL TSH 30.56 H (0.34-5.60) uIU/mL Impression and Recommendations - Palliative Care Impression: This is a 72-year-old woman who presents with multiple comorbidities, in the face of recent acute illness, and now with severe dysphagia. Awaiting outcome of barium swallow, and weigh benefits and burdens regarding considering tube feedings, either now or in the future. Palliative care exploring goals of care recognizing her fragility. Recommendations/Counseling Done: 1. Dysphagia. Counseling regarding weighing benefits and burdens regarding risks and tube feedings in the context of the current situation, patient does have difficulty managing oral secretions, she remains at high risk for aspiration. still perceives her quality of life is acceptable, and enjoys their current relationship, would consider pursuing tube feedings if this was unnecessary choice. He does weigh benefits and burdens in the context of quality of life issues, these were explored. I did provide him with "hard choices for loving people", and offered further conversation or counseling if needed in upcoming decisions. Contact made with speech therapist prior to exam to share conversation thus far regarding current situation. 2. Advanced care planning. DEN[facility] ST is in place, most likely would benefit further conversation after discharge from hospital, about both short-term and long-term goals regarding support and end-of-life planning. Will follow up with Dr. Rodrigez on discharge for referral. Time Spent: 60 minutes with greater than 50% of this done in counseling and exploring goals of care, anticipatory guidance, will remain available for further discussion as needed.
[2018-03-23] MEDS: SODIUM CHLORIDE FLUSH 0.9% 10 ML SYRINGE IVP PRN (23:40)
[2018-03-24] MEDS: POTASSIUM CHLOR 10 MEQ/100 ML 10 MEQ/100 ML BAG IV SCH ×6 (01:03→07:49)
[2018-03-24] MEDS: HYDROmorphone 1 MG/ML SYRINGE IVP PRN (04:10)
[2018-03-24 05:43] LABS: BASOPHILS # (AUTO) 0.1 10^3/uL (0.0-0.1); BASOPHILS % (AUTO) 0.7 %; EOSINOPHILS # (AUTO) 0.1 10^3/uL (0.0-0.7); EOSINOPHILS % (AUTO) 1.3 %; HGB - HEMOGLOBIN 8.7 g/dL (12.0-16.0); LYMPHOCYTES # (AUTO) 1.2 10^3/uL (1.5-3.5); LYMPHOCYTES % (AUTO) 12.7 %; MEAN CORPUSCULAR HEMOGLOBIN 29.7 pg (27.0-31.0); MEAN CORPUSCULAR HGB CONC 33.1 g/dL (32.0-36.0); MEAN PLATELET VOLUME 7.5 fL (7.9-10.8); MONOCYTES % (AUTO) 10.6 %; NEUTROPHILS # (AUTO) 7.1 10^3/uL (1.5-6.6); NEUTROPHILS % (AUTO) 74.7 %; PLT - PLATELET COUNT 189 10^3/uL (130-450); RED BLOOD COUNT 2.92 10^6/uL (4.20-5.40); RED CELL DISTRIBUTION WIDTH 14.5 % (12.0-15.0); WHITE BLOOD COUNT 9.4 x10^3/uL (4.8-10.8)
[2018-03-24 05:48] LABS: CALCIUM 8.1 mg/dL (8.5-10.3); CREATININE 0.6 mg/dL (0.4-1.0)
[2018-03-24] MEDS: AMPICILLIN/SULBACTAM 3 GM in SODIUM CHLORIDE 0.9% MINIBAG 100 ML IV SCH ×3 (06:25→17:36)
[2018-03-24] MEDS: SODIUM CHLORIDE FLUSH 0.9% 10 ML SYRINGE IVP PRN (06:30)
[2018-03-24] MEDS: LEVOTHYROXINE 100 MCG VIAL IVP SCH (06:30)
[2018-03-24] MEDS: ACETAMINOPHEN 1,000 MG/100 ML 100 ML IV PRN (08:27)
[2018-03-24] MEDS: SODIUM CHLORIDE FLUSH 0.9% 10 ML SYRINGE IVP SCH ×3 (10:11→23:46)
[2018-03-24] MEDS: DEXTROSE 5%-0.9% NACL 1,000 ML IV SCH ×3 (11:06→22:10)
--- NOTE | 2018-03-24 17:58 | PROVIDER PROGRESS NOTE ---
Subjective - Prog Note Date Prog Note Date: 03/24/18 Prog Note Time: 17:00 - Subjective Pt reports feeling: No change Subjective: Musa understands the full extent of his dear 's grave medical state and wishes to preserve her comfort and forgo the Dubhoff feeding tube. The patient remains mostly non-interactive and comfortable. Current Medications - Current Medications Current Medications: Active Medications Hydromorphone HCl (Dilaudid Inj Syringe) 1 mg IVP Q4H PRN PRN Reason: SEVERE PAIN Last Admin: 03/24/18 04:10 Dose: 1 mg Dextrose/Sodium Chloride (D5ns) 1,000 mls @ 100 mls/hr IV .Q10H JONA Last Admin: 03/24/18 11:08 Dose: 100 mls/hr Acetaminophen (Ofirmev) 100 mls @ 400 mls/hr IV Q6HR PRN PRN Reason: PAIN Last Infusion: 03/24/18 08:59 Dose: Infused Ceftriaxone Sodium 1 gm/ (Sodium Chloride) 100 mls @ 200 mls/hr IV 2000 JONA Metronidazole (Flagyl 500 Mg/100 Ml) 500 mg in 100 mls @ 100 mls/hr IV Q8HR JONA Levothyroxine Sodium (Synthroid Inj) 50 mcg IVP QDAC JONA Last Admin: 03/24/18 06:30 Dose: 50 mcg Lorazepam (Ativan Inj (Vial)) 0.5 mg IVP Q2H PRN PRN Reason: Anxiety Last Admin: 03/23/18 23:39 Dose: 0.5 mg Ondansetron HCl (Zofran Inj) 4 mg IVP Q6HR PRN PRN Reason: Nausea / Vomiting Sodium Chloride (Normal Saline Flush 0.9%) 10 ml IVP PRN PRN PRN Reason: NEEDED PER PROVIDER ORDERS Last Admin: 03/24/18 06:30 Dose: 10 ml Sodium Chloride (Normal Saline Flush 0.9%) 10 ml IVP 0100,0900,1700 JONA Last Admin: 03/24/18 16:33 Dose: Not Given Acetaminophen [Tylenol] 650 mg PO Q6H PRN 03/21/18 Cyanocobalamin (Vitamin B-12) [Vitamin B-12] 1,000 mcg PO DAILY 03/21/18 Cyclobenzaprine HCl 5 mg PO Q8HR PRN 03/21/[address] [Depakote Dr] 500 mg PO BID 03/21/18 Ferrous Gluconate 240 mg PO DAILY 03/21/18 Folic Acid 0.4 mg PO DAILY 03/21/18 Mirtazapine 7.5 mg PO DAILY 03/21/18 Objective - Vital Signs/Intake & Output Reviewed Vital Signs: Yes Vital Signs: Vital Signs x48h Pulse Pulse BP BP 03/24/18 13:46 90 95 158/110 H 90/77 Intake & Output: Intake & Output 03/21/18 03/22/18 03/23/18 03/24/18 23:59 23:59 23:59 23:59 Intake Total 2900 2471.667 2500 2986.667 Output Total 700 1700 825 Balance 2900 1771.505 627 2601.667 - Objective General Appearance: positive: No acute distress, Lethargic (patient resting with very little interaction) Eyes Bilateral: positive: Other (conjuctivae pale, mild redness.) Eyes: OU Conjunctivae pale ENT: positive: Pharyngeal erythema, Dry mucous membranes, Other Respiratory: positive: Wheezes, Rhonchi Cardiovascular: positive: No gallop, Irregularly irregular, Systolic murmur, Decreased pulse(s) Peripheral Pulses: 1+ Radial (L), 2+ Radial (R) Abdomen: positive: Tenderness, Guarding, Abnml bowel sounds Back: positive: Nml inspection Skin: positive: No rash, Warm, Dry, Diaphoresis, Pallor Extremities: positive: Pedal edema, Joint swelling, Other (left sided flaccid) Neurologic/Psychiatric: positive: Disoriented to place, Disoriented to time, Weakness, Sensory loss, Slurred/abnml speech, Depressed mood/affect, Other Reflexes: Bicep (R): 1+, Bicep (L): 0 - Lab Results Fish Bones: 03/24/18 05:00 03/24/18 05:00 Other Labs: Lab Results x24hrs 03/24/18 03/24/18 Range/Units 05:00 05:00 WBC 9.4 (4.8-10.8) x10^3/uL RBC 2.92 L (4.20-5.40) 10^6/uL Hgb 8.7 L (12.0-16.0) g/dL Hct 26.3 L (37.0-47.0) % MCV 90.0 (81.0-99.0) fL MCH 29.7 (27.0-31.0) pg MCHC 33.1 (32.0-36.0) g/dL RDW 14.5 (12.0-15.0) % Plt Count 189 (130-450) 10^3/uL MPV 7.5 L (7.9-10.8) fL Neut # (Auto) 7.1 H (1.5-6.6) 10^3/uL Lymph # (Auto) 1.2 L (1.5-3.5) 10^3/uL [place] # (Auto) 1.0 (0.0-1.0) 10^3/uL Eos # (Auto) 0.1 (0.0-0.7) 10^3/uL Baso # (Auto) 0.1 (0.0-0.1) 10^3/uL Absolute Nucleated RBC 0.00 x10^3/uL Nucleated RBC % 0.0 /100WBC Sodium 133 L (135-145) mmol/L Potassium 3.8 (3.5-5.0) mmol/L Chloride 103 (101-111) mmol/L Carbon Dioxide 24 (21-32) mmol/L Anion Gap 6.0 (6-13) BUN 5 L (6-20) mg/dL Creatinine 0.6 (0.4-1.0) mg/dL Estimated GFR (MDRD) 98 (>89) Glucose 133 H (70-100) mg/dL Calcium 8.1 L (8.5-10.3) mg/dL - Diagnostic Imaging Diagnostic Imaging Results: positive: Final report reviewed ABX Reporting Has patient been on IV antibiotics over the past 48 hours?: Yes Assessment/Plan - Problem List (1) Hypothyroidism Impression: The patient has a known history of this and takes a low dose Synthroid at [facility] where she is a permanent resident. She is found to have a very elevated TSH of 30.56, so her oral dose is now changed to IV and this dose has been increased to 50mcgs IV which converts to 100mcg oral dosing. Plan: Continue treatment and re-check in 4-6 weeks, or when appropriate. Qualifiers: Hypothyroidism type: acquired Qualified Code(s): E03.9 - Hypothyroidism, unspecified (2) Sepsis Impression: The patient presented to the ED with sepsis like symptoms such as altered mental status, tachycardia and a lactic acid of 2.2. Her urinary tract appears to be the source. Blood pressure is also noted to be low at 88/66. The patient continues to be lethargic, tachycardic and her blood pressures have mildly improved to 121/69. She has been febrile with a temp max of 39.1, that has now normalized. She is now ruled out of sepsis, but will likely be found to have her lungs be a contributing factor with the suspicion of aspiration given her profound weakness. This is considered ruled out. Plan: Continue to monitor AM labs and overall condition. Qualifiers: Sepsis type: sepsis due to unspecified organism Qualified Code(s): A41.9 - Sepsis, unspecified organism (3) UTI (urinary tract infection) Impression: A urine sample was obtained upon admission shows +UTI with many bacteria and + nitrites, etc. Cultures are show e. coli with sensitivities to Rochephin, and this was added today. IV antibiotics were changed to Rocephin and Flagyl IV to cover anaerobes in the lungs. Plan: Monitor urine out put, continue treatment with Rochepin and Flagyl IV. Qualifiers: Urinary tract infection type: acute pyelonephritis Qualified Code(s): N10 - Acute pyelonephritis (4) Aspiration into airway Impression: Dubhoff feedings are no longer being considered to preserve patient comfort. Palliative care is now consulted for goals of care discussions. Plan: Keep NPO to protect airway, continue Rocephin and Flagyl, and frequent oral care. Qualifiers: Encounter type: subsequent encounter Qualified Code(s): T17.908D - Unspecified foreign body in respiratory tract, part unspecified causing other injury, subsequent encounter (5) End of life care Impression: A palliative consult was made for the patient's inability to appropriately swallow and her failing medical state. Morelia Gaviria had a long discussion with the patient's POA, Musa who is her of 52 years and tearful, but grateful to have Morelia. Musa wishes to make final decisions when his extended family arrives tomorrow, and Morelia will plan to see. Plan: Continue NPO status and good oral care. 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 She is now unable to protect her air way, but this may also be due to radiation therapy to the neck region for throat cancer in 2013. Plan: Bed rest with turns, with frequent nursing care.
[2018-03-24] MEDS ORDERED: cefTRIAXone 1 GM VIAL IVP SCH (18:46)
--- NOTE | 2018-03-24 18:51 | CONSULTATION NOTE ---
Palliative Care Follow Up - Referral Referring Provider: Ashley ESTRADA Time of Visit: 6631-0179 Referral setting: Hospitalized patient Referral Reason: Goals of Care/Dysphagia - Information Sources Records reviewed: Previous records reviewed History/Review of Systems obtained from: Family (Musa at bedsied) Exam limitations: Clinical condition (patient lethargic; sleeping in chair through visit) - History of Present Illness Update Brief HPI Update: This is a 72-year-old woman he has lived at [facility],As a result of suffering 2 strokes in 2017, patient with residual left hemiplegia, dysphasia, dysarthria and now presenting with progressive dysphagia she does have a history of aspiration pneumonia 2, she was admitted this time with urosepsis, but her swallow had been declining to the week. She did fail her barium swallow yesterday, patient is unable to swallow anything at this point in time, has been needing suctioning of her secretions, and currently has been is struggling with moving forward on tube feedings. Patient has been on Plavix, needs to be off her last dose was 03/21, he was offered by the surgeon at [facility], and then return in a week for a PEG tube placement. She did have a PEG tube during that time that she was treated for oral pharyngeal cancer in 2013. She is definitely in a different place and more fragile at this point in time. Social History - Living Situation Living arrangement: group home Support System: Her spouse has been very faithful, and he is been for 52 years. Patient has not been cognitively present for the last several weeks to months, this is been difficult for him. The patient does have 3 children and 4 siblings , including a sister who is a home health nurse. Medications/Allergies - Medications Active Medication List: Active Medications Ceftriaxone Sodium (Rocephin) 1 gm IVP DAILY JONA Hydromorphone HCl (Dilaudid Inj Syringe) 1 mg IVP Q4H PRN PRN Reason: SEVERE PAIN Last Admin: 03/24/18 04:10 Dose: 1 mg Dextrose/Sodium Chloride (D5ns) 1,000 mls @ 100 mls/hr IV .Q10H JONA Last Admin: 03/24/18 11:08 Dose: 100 mls/hr Acetaminophen (Ofirmev) 100 mls @ 400 mls/hr IV Q6HR PRN PRN Reason: PAIN Last Infusion: 03/24/18 08:59 Dose: Infused Ampicillin Sodium/Sulbactam (Sodium 3 gm/ Sodium Chloride) 100 mls @ 200 mls/ hr IV Q6HR [facility] Last Infusion: 03/24/18 18:06 Dose: Infused Levothyroxine Sodium (Synthroid Inj) 50 mcg IVP QDAC [facility] Last Admin: 03/24/18 06:30 Dose: 50 mcg Lorazepam (Ativan Inj (Vial)) 0.5 mg IVP Q2H PRN PRN Reason: Anxiety Last Admin: 03/23/18 23:39 Dose: 0.5 mg Ondansetron HCl (Zofran Inj) 4 mg IVP Q6HR PRN PRN Reason: Nausea / Vomiting Sodium Chloride (Normal Saline Flush 0.9%) 10 ml IVP PRN PRN PRN Reason: NEEDED PER PROVIDER ORDERS Last Admin: 03/24/18 06:30 Dose: 10 ml Sodium Chloride (Normal Saline Flush 0.9%) 10 ml IVP 0100,0900,1700 [facility] Last Admin: 03/24/18 16:33 Dose: Not Given Sterile Water (Sterile Water) 10 ml IV ONCE ONE Stop: 03/24/18 18:46 Acetaminophen [Tylenol] 650 mg PO Q6H PRN 03/21/18 Cyanocobalamin (Vitamin B-12) [Vitamin B-12] 1,000 mcg PO DAILY 03/21/18 Cyclobenzaprine HCl 5 mg PO Q8HR PRN 03/21/[address] [Depakote Dr] 500 mg PO BID 03/21/18 Ferrous Gluconate 240 mg PO DAILY 03/21/18 Folic Acid 0.4 mg PO DAILY 03/21/18 Mirtazapine 7.5 mg PO DAILY 03/21/18 - Allergies Allergies/Adverse Reactions: Allergies Allergy/AdvReac Type Severity Reaction Status Date / Time codeine Allergy Unknown Verified 11/02/17 19:30 Review of Systems - Constitutional Constitutional: reports: Weight loss - Respiratory Respiratory: reports: Cough, Wheezing - Genitourinary Genitourinary: reports: Incontinence - Musculoskeletal Musculoskeletal: reports: Muscle pain (left sided hemiplegia), Transfer issues ( max assist to chair) - Integumentary Integumentary: reports: Dryness - Neurological Neurological: reports: General weakness, Memory problems - Hematologic/Lymphatic Hematologic/Lymphatic: reports: Anemia, Recurrent infections - All Other Systems All Other Systems: reports: Reviewed and negative - Other Findings Other Findings: limited ROS; patient has been lethargic most of the day Physical Exam - Vital Signs Vital Signs: Vital Signs x48h Temp Pulse Pulse Pulse Resp BP BP 03/24/18 17:15 36.4 C L 85 20 135/63 H 03/24/18 13:46 90 95 158/110 H BP Pulse Ox 03/24/18 17:15 98 03/24/18 13:46 90/77 - Physical Exam General Appearance: positive: Lethargic (sleeping at time of visit) Eyes Bilateral: positive: Other (eyes closed) Respiratory: positive: Diminished in bases, Wheezes, Rhonchi Skin: positive: Pallor Extremities: positive: No pedal edema, Other (contracture left hand) Neurologic/Psychiatric: positive: Other (sleeping) Palliative Care - POLST Patient has POLST: Yes POLST Status: DNR, Selective Treatment - Palliative Care Discussion: Reviewed with his struggles as far as decision-making about whether to move forward with tube feeding or not. He is concerned with her debilitated state, her ongoing functional and cognitive decline, and her lack of quality of life if this would be the best decision and may just be prolonging her suffering. We did discuss in the context of unit from her place where she did have decision-making capacity if she were to have seen this in her future with this be something she would want, is fairly certain that that would be an adamant no. They had jointly made decisions about DNA R, but this is a another level of complexity. He is not wanting to be selfish, and wants best for her, we did discuss the continuum of care. Including hospice, her roommate did have hospice, so he has some understanding of that. Discussed this with needing no fluids, but focusing on comfort, comfort medications, and support from the hospice team, prognosis is usually days to weeks. In the context of looking at tube feedings, the definite cough would be a temporary measure, he could weigh the benefits and burdens moving forward after this, though this too is an uncomfortable procedure that she may or may not tolerate. We also discussed the tube feeding does not take away the aspiration risk, and patient is having more difficulty managing his secretions, and needing frequent suctioning. They are both of [employer] background, he is going to go speak with his business attorney tomorrow, I encouraged him to reach out to family members as well as her sister who is a nurse. He has been talking to a friend whose had to make similar decisions, and feels supported. Gave me permission to follow-up with the hospitalist regarding his current consideration of possibly transitioning to hospice as would need to get some of this in place in moving forward for discharge plan. Results - Lab Results Lab results reviewed: Yes Fish Bones: 03/24/18 05:00 03/24/18 05:00 Lab and Imaging Results: Lab Results x24hrs 03/24/18 03/24/18 Range/Units 05:00 05:00 WBC 9.4 (4.8-10.8) x10^3/uL RBC 2.92 L (4.20-5.40) 10^6/uL Hgb 8.7 L (12.0-16.0) g/dL Hct 26.3 L (37.0-47.0) % MCV 90.0 (81.0-99.0) fL MCH 29.7 (27.0-31.0) pg MCHC 33.1 (32.0-36.0) g/dL RDW 14.5 (12.0-15.0) % Plt Count 189 (130-450) 10^3/uL MPV 7.5 L (7.9-10.8) fL Neut # (Auto) 7.1 H (1.5-6.6) 10^3/uL Lymph # (Auto) 1.2 L (1.5-3.5) 10^3/uL [place] # (Auto) 1.0 (0.0-1.0) 10^3/uL Eos # (Auto) 0.1 (0.0-0.7) 10^3/uL Baso # (Auto) 0.1 (0.0-0.1) 10^3/uL Absolute Nucleated RBC 0.00 x10^3/uL Nucleated RBC % 0.0 /100WBC Sodium 133 L (135-145) mmol/L Potassium 3.8 (3.5-5.0) mmol/L Chloride 103 (101-111) mmol/L Carbon Dioxide 24 (21-32) mmol/L Anion Gap 6.0 (6-13) BUN 5 L (6-20) mg/dL Creatinine 0.6 (0.4-1.0) mg/dL Estimated GFR (MDRD) 98 (>89) Glucose 133 H (70-100) mg/dL Calcium 8.1 L (8.5-10.3) mg/dL Impression and Recommendations - Palliative Care Impression: This is a 72-year-old woman who is experiencing severe sequela of her CVA, with severe dysphagia, now forcing the decision regarding tube feedings or not. This is a complex and emotional decision for the , but does recognize her quality of life is declining, as well as her risk for an end-of-life event. Patient continues to present poorly with increased lethargy today. Palliative care providing support regarding conversation and weighing benefits and burdens moving forward. Recommendations/Counseling Done: 1. Dysphagia. Please see palliative care discussion, counseling regarding 's questions regarding moving forward with tube feedings or not, has spent time reflecting on this in the context of her current quality of life and conversations yesterday. Did follow-up with hospitalist, patient can have temporary tube delayed today, to allow more time for him to come up with the decision. Again has been to follow-up with , if unable to make contact, the degree would reach out to father Curtis if needed. Encouraged to explore with family, as he is struggling with his decision and needing support. 2. Advanced care planning. [facility] is in place, if patient were to move on to hospice, he would not take her home but returned to carriage. Hospice was contacted just to put her in the q., currently pending a Thursday slot. If patient moves forward with tube placement, will return to carriage until permanent surgery for PEG arrangements made. Palliative care to remain involved and provide support in the context of patient's ongoing decline. Time Spent: 60 minutes with greater than 50% of this done in counseling in the context of anticipatory guidance, education regarding tube feedings, and weighing benefits of burdens as well as hospice benefit
[2018-03-24] MEDS ORDERED: cefTRIAXone 1 GM in SODIUM CHLORIDE 0.9% MINIBAG 100 ML IV SCH (20:00)
[2018-03-24] MEDS: metroNIDAZOLE 500 MG/100 ML 500 MG/100 ML BAG IV SCH (22:18)
[2018-03-25] MEDS: HYDROmorphone 1 MG/ML SYRINGE IVP PRN (05:12)
[2018-03-25] MEDS: metroNIDAZOLE 500 MG/100 ML 500 MG/100 ML BAG IV SCH (05:31)
[2018-03-25] MEDS: LEVOTHYROXINE 100 MCG VIAL IVP SCH (06:11)
[2018-03-25] MEDS: SODIUM CHLORIDE FLUSH 0.9% 10 ML SYRINGE IVP PRN (06:11)
[2018-03-25 07:51] LABS: BASOPHILS % (AUTO) 0.9 %; EOSINOPHILS # (AUTO) 0.2 10^3/uL (0.0-0.7); EOSINOPHILS % (AUTO) 4.7 %; HGB - HEMOGLOBIN 8.7 g/dL (12.0-16.0); LYMPHOCYTES # (AUTO) 0.9 10^3/uL (1.5-3.5); LYMPHOCYTES % (AUTO) 17.1 %; MEAN CORPUSCULAR HGB CONC 33.7 g/dL (32.0-36.0); MEAN PLATELET VOLUME 7.1 fL (7.9-10.8); MONOCYTES # (AUTO) 0.5 10^3/uL (0.0-1.0); MONOCYTES % (AUTO) 9.9 %; NEUTROPHILS # (AUTO) 3.4 10^3/uL (1.5-6.6); NEUTROPHILS % (AUTO) 67.4 %; PLT - PLATELET COUNT 202 10^3/uL (130-450); RED BLOOD COUNT 2.91 10^6/uL (4.20-5.40); RED CELL DISTRIBUTION WIDTH 14.4 % (12.0-15.0)
[2018-03-25 07:59] VITALS: BP 140/79
[2018-03-25] MEDS ORDERED: ENOXAPARIN 40 MG/0.4 ML SYRINGE SUBQ SCH (08:00)
[2018-03-25 08:09] LABS: ALBUMIN 2.1 g/dL (3.2-5.5); ALBUMIN/GLOBULIN RATIO 0.5 (1.0-2.2); ALKALINE PHOSPHATASE 59 IU/L (42-121); ALT ALANINE AMINOTRANSFERASE 10 IU/L (10-60); AST ASPARTATE AMINOTRANSFERASE 20 IU/L (10-42); BILIRUBIN,TOTAL 0.3 mg/dL (0.2-1.0); BUN - BLOOD UREA NITROGEN < 5 mg/dL (6-20); CALCIUM 7.9 mg/dL (8.5-10.3); CARBON DIOXIDE - CO2 25 mmol/L (21-32); CHLORIDE 104 mmol/L (101-111); CREATININE 0.6 mg/dL (0.4-1.0); GFR - MDRD 98 (>89); GLUCOSE 151 mg/dL (70-100); MAGNESIUM 1.3 mg/dL (1.7-2.8); SODIUM 136 mmol/L (135-145); TOTAL PROTEIN 6.2 g/dL (6.7-8.2)
[2018-03-25] MEDS: DEXTROSE 5%-0.9% NACL 1,000 ML IV SCH (08:52)
[2018-03-25] MEDS: SODIUM CHLORIDE FLUSH 0.9% 10 ML SYRINGE IVP SCH (08:53)
[2018-03-25] MEDS: POTASSIUM CHLOR 10 MEQ/100 ML 10 MEQ/100 ML BAG IV SCH ×2 (10:54→11:51)
[2018-03-25] MEDS ORDERED: POTASSIUM CHLORIDE INJ 40 MEQ in DEXTROSE 5%-0.45% NACL 980 ML IV SCH (11:00)
--- NOTE | 2018-03-25 12:13 | CONSULTATION NOTE ---
DATE OF SERVICE: 03/23/2018 Physician: Tam Ragsdale MD REFERRING PROVIDER: Ashley Campos MD REASON FOR CONSULTATION: Possible percutaneous endoscopic gastrostomy tube placement. HISTORY OF PRESENT ILLNESS: Patient is a 72-year-old female who has been admitted to the hospital because of urosepsis. She was also found to have aspiration pneumonia. She has dysphagia secondary to history of stroke. Because of the difficulty with swallowing and aspiration, a PEG tube has been requested. MEDICATIONS ON HOSPITALIZATION 1. Compazine. 2. Percocet. 3. Cyclobenzaprine. 4. Depakote. 5. Synthroid. 6. Plavix. 7. Lipitor. ALLERGIES: CODEINE. SOCIAL HISTORY: Patient lives in a assisted. FAMILY HISTORY: Noncontributory. PAST MEDICAL HISTORY 1. Hypertension. 2. Hypothyroidism. 3. Renal insufficiency. 4. Urosepsis. 5. History of stroke. 6. 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 . PAST SURGICAL HISTORY 1. Cholecystectomy. 2. Appendectomy. . REVIEW OF SYSTEMS: Unable to obtain review of systems due to patient's diminished mental capacity. PHYSICAL EXAMINATION VITAL SIGNS: Temperature is 36.6, heart rate is 106, blood pressure 158/110. GENERAL: Patient is lying in bed. She responds to stimuli but is confused. HEENT: Eyes nonicteric. NECK: No lymphadenopathy. HEART: Tachycardic. LUNGS: Clear. BACK: Nontender. ABDOMEN: Soft, nontender. She has a previous scar in the left upper quadrant from previous PEG tube placement. EXTREMITIES: No edema or cyanosis. NEUROLOGIC: Patient does have a history of stroke. PSYCHOLOGICAL: The patient is confused and not able to answer questions. DIAGNOSTIC DATA: White blood cell count of 9.4, hemoglobin 8.7. ASSESSMENT AND PLAN 1. Dysphagia with aspiration. A PEG tube has been requested. However, patient recently has taken Plavix. I would wait at least a week off Plavix before placement of the PEG tube. This should allow her adequate time to clear her urosepsis also. In the meantime, I would recommend placement of a nasogastric or nasoenteric feeding tube. 2. Urosepsis, being treated with antibiotics. 3. Anemia of unknown etiology. Her MCV is 90 at the current time. It is unknown when she had her last endoscopy. There does not appear to be any mention of seeing blood in the stool. PLAN 1. Consider placement of a nasogastric tube for tube feedings. 2. We will see about placement of a PEG tube next week or the following week, depending on the patient's condition. TD: 03/25/2018 02:24
--- NOTE | 2018-03-25 13:37 | Discharge Plan ---
"Discharge Plan for SNF / [facility] - DC Plan and Transition Orders Disposition: 50 Hospice/Home DC/Xfer Condition: Serious SNF Transition Orders: Admit to: [[facility]] under the care of [Doctor Dubose] Discharge Diagnosis: [hospice care, CVA, dysphagia, UTI] Medicare Certification: I do not certify that [facility] long term care is medically necessary on a continuing basis for any of the conditions for which she/he is receiving care during hospitalization. Notify PCP of admission and forward orders to primary provider for signature. Weight on admission and [52kg]. Call PCP immediately if weight increases by [4 ] pounds or if patient develops dyspnea, chest pain/tightness or edema. House Bowel Program: [Yes] If no BM after 2 days, nurse may give M.O.M. 30ml PO PRN and /or ducolax Supp 1 VT and /or FOREIGN 250mg P.O., and/or senna 1-2 tabs PO. On day 3 nurse may give repeat above order until residents constipation is resolved. Immunizations: Annual Influenza Vaccine: [Yes]. (between Jun 12 and January 09.) Unless allergy or already given Two-Step PPD: [Yes] per [facility] [id number] or appropriate documentation of approved exceptions Treatments & Other Orders: [pt may follow up the hospice care after pt is arrival to [facility]] Oxygen Orders: [PRN] Lab Tests or X-Rays Orders: [follow up hospice care] Orthopedic Orders: [n]. Medications: PLEASE REFER TO THE DISCHARGE MEDICATION LIST. Insulin Orders? [No] Diagnosis: Diabetes Initiate hypo and hyperglycemia protocols for BG <70 and BG >375. May check BG prn for signs/symptoms of dysglycemia. Frequency of BG checks: [AC/Meal/HS] Basal Insulin: [] Lantus 100 units / ml inject subq as follows: [] [] Other: [] Correction Insulin: - Select the type of insulin below [Choose: Novolog/Humalog]100 units /ml insulin inject subq per orders indicate below [] LOW DOSE [] MODERATE DOSE [] MODERATE/HIGH DOSE [] HIGH DOSE GB UNITS GB UNITS GB UNITS GB UNITS 61-140 0 UNITS 61-140 0 UNITS 61-140 0 UNITS 61-140 0 UNITS 141-175 1 UNITS 141-175 1 UNITS 141-175 2 UNITS 141-175 3 UNITS 176-225 2 UNITS 176-225 3 UNITS 176-225 4 UNITS 176-225 5 UNITS 226-275 3 UNITS 226-275 5 UNITS 226-275 6 UNITS 226-275 7 UNITS 276-325 4 UNITS 276-325 7 UNITS 276-325 8 UNITS 276-325 9 UNITS 326-375 5 UNITS 326-375 9 UNITS 326-375 10 UNITS 326-375 11 UNITS >375 CONTACT MD >375 CONTACT MD >375 CONTACT MD >375 CONTACT MD Custom Dosing: [Choose: None/Novolog/Humalog] 100 units/ml Insulin inject subq as follows: GB Units 61-140 [] Units 141-175 [] Units 176-225 [] Units 226-275 [] Units 276-325 []Units 326-375 [] Units >375 Contact MD Allergies and Adverse Reactions: Allergies Allergy/AdvReac Type Severity Reaction Status Date / Time codeine Allergy Unknown Verified 11/02/17 19:30 - Medications New Prescriptions: LORazepam INJ [Ativan Inj (Vial)] 0.5 mg IVP Q2H PRN #10 vial PRN Reason: Anxiety Morphine Sulfate [Morphine Sulf Oral (Roxanol)] 10 mg PO Q4H PRN #30 ml PRN Reason: Pain/Dyspnea - Therapies | Activity Additional Instructions: Pt may follow up hospice care after pt is arrival to [facility]"
--- NOTE | 2018-03-25 13:56 | DISCHARGE SUMMARY ---
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 Per pt's POA, pt's , reports, pt failed G/J tube feeding and Dobhoff NG tube feeding before. POA discussed with palliative care provider Morelia Gaviria. The POA decided transition to hospice care for pt. (2) End of life care continue hospice care. I discussed with palliative care provider Morelia Gaviria for transition medications for pt. I followed up palliative care provider Morelia Gaviria's recommendation for transition medications to pt: Ativan 0.5 mg Q2H PRN for anxiety, Morphin 10 mg Q4H PRN for pain. (3) Flaccid hemiplegia affecting left nondominant side continue hospice care (4) Hypothyroidism continue hospice care (5) Sepsis continue hospice care (6) UTI (urinary tract infection) continue hospice care (7) hx of throat cancer continue hospice care - HPI History of Present Illness: refer from Dr. Louis's HPI for pt on 03/22/18 - CONSULTS | PROCEDURES Consultations: palliative care and hospice care team Procedures: hospice care - ALLERGIES Allergies/Adverse Reactions: Allergies Allergy/AdvReac Type Severity Reaction Status Date / Time codeine Allergy Unknown Verified 11/02/17 19:30 - MEDICATIONS Home Medications: Ambulatory Orders Medication Instructions Recorded Confirmed Atorvastatin [Lipitor] 80 mg PO QPM #0 09/12/17 03/22/18 Clopidogrel [Plavix] 75 mg PO DAILY #0 09/12/17 03/22/18 Levothyroxine [Synthroid] 50 mcg PO QDAC #0 09/12/17 03/22/18 Oxycodone HCl/Acetaminophen 1 each PO Q6H PRN #0 09/12/17 03/22/18 [Oxycodone-Acetaminophen 5-325] Acetaminophen [Tylenol] 650 mg PO Q6H PRN 03/21/18 03/22/18 Cyanocobalamin (Vitamin B-12) 1,000 mcg PO DAILY 03/21/18 03/22/18 [Vitamin B-12] Cyclobenzaprine HCl 5 mg PO Q8HR PRN 03/21/18 03/22/[address] [Depakote Dr] 500 mg PO BID 03/21/18 03/22/18 Ferrous Gluconate 240 mg PO DAILY 03/21/18 03/22/18 Folic Acid 0.4 mg PO DAILY 03/21/18 03/22/18 Mirtazapine 7.5 mg PO DAILY 03/21/18 03/22/18 LORazepam INJ [Ativan Inj (Vial)] 0.5 mg IVP Q2H PRN #10 vial 03/25/18 Morphine Sulfate [Morphine Sulf 10 mg PO Q4H PRN #30 ml 03/25/18 Oral (Roxanol)] - PHYSICAL EXAM AT DISCHARGE General Appearance: positive: Alert, Mild distress. negative: Lethargic Eyes Bilateral: positive: Normal inspection, PERRL, No lid inflammation, Conjunctivae nml ENT: negative: No signs of dehydration, Purulent nasal drainage, Pharyngeal erythema, Oral lesions Neck: positive: Thyroid nml, No JVD, Trachea midline. negative: Thyromegaly, Lymphadenopathy (R), Lymphadenopathy (L), Stiff neck, Kernig's sign, Swelling/ bruising Respiratory: positive: Chest non-tender, No respiratory distress, Breath sounds nml. negative: Wheezes, Rales, Rhonchi Cardiovascular: positive: Regular rate & rhythm, No murmur. negative: Irregularly irregular, Extrasystoles, Tachycardia, Bradycardia, Systolic murmur , Diastolic murmur Peripheral Pulses: positive: 2+ Abdomen: positive: Non-tender, No organomegaly, Nml bowel sounds, No distention. negative: Tenderness, Guarding, Rebound Back: positive: Nml inspection Skin: positive: No rash, Warm, Dry, Pallor. negative: Cyanosis, Diaphoresis Extremities: positive: Non-tender. negative: Calf tenderness, Joint swelling, Av's sign/cords Neurologic/Psychiatric: positive: Other (left side paralysis and upper and low extremities contracture). negative: Facial droop, Slurred/abnml speech - LABS Result Diagrams: 03/25/18 07:46 03/25/18 07:46 - FOLLOW UP Follow Up: follow up hospice care after arrival to [facility] - TIME SPENT Time Spent in Discharge (Minutes): 50"
--- NOTE | 2018-03-25 17:51 | CONSULTATION NOTE ---
Palliative Care Follow Up - Referral Referring Provider: Ashley ESTRADA Time of Visit: [id number] Referral setting: Hospitalized patient Referral Reason: Dysphagia/Strokes/Goals of Care - Information Sources Records reviewed: Previous records reviewed History/Review of Systems obtained from: Patient, Family (Musa ) Exam limitations: Clinical condition (patient with cognitive deficits; awake and alert today;) - History of Present Illness Update Brief HPI Update: This is a 72-year-old woman who lives at [facility] for almost a year as a result of 2 strokes, she has residual left hemiplegia, dysphasia, dysarthria, and now presenting with progressive dysphagia. Has been presented with no longer the ability to take nutrition, had failed barium swallow test, but now somewhat more awake. Conversation yesterday with regarding goals of care whether to proceed with hospice and allowing natural , temporarily intervene with depnokoff tube and decide whether to proceed next week with PEG (has to wait a week because of Plavix). He was going to talk to his family and make a decision today, we are meeting to proceed with planning. Social History - Living Situation Living arrangement: long-term (has lived at [facility], slow and consistent functinal and cognitive decline; particularly over the last few months; Musa comes daily for several hours to support her care) Medications/Allergies - Medications Active Medication List: Acetaminophen [Tylenol] 650 mg PO Q6H PRN 03/21/18 Cyanocobalamin (Vitamin B-12) [Vitamin B-12] 1,000 mcg PO DAILY 03/21/18 Cyclobenzaprine HCl 5 mg PO Q8HR PRN 03/21/18 Divalproex [Bandar Garg] 500 mg PO BID 03/21/18 Ferrous Gluconate 240 mg PO DAILY 03/21/18 Folic Acid 0.4 mg PO DAILY 03/21/18 Mirtazapine 7.5 mg PO DAILY 03/21/18 - Allergies Allergies/Adverse Reactions: Allergies Allergy/AdvReac Type Severity Reaction Status Date / Time codeine Allergy Unknown Verified 11/02/17 19:30 Review of Systems - Constitutional Constitutional: reports: Weight loss - Ears, Nose & Throat Ears, Nose & Throat: reports: Other (difficulty managing oral secretions; using oral suction with assistance) - Respiratory Respiratory: reports: Cough, SOB at rest - Genitourinary Genitourinary: reports: Incontinence - Musculoskeletal Musculoskeletal: reports: Other (left sided hemiplegia; left hand contracture with splint) - Integumentary Integumentary: reports: Dryness - Neurological Neurological: reports: General weakness, Memory problems (patient seems to have some comprehension of conversation; unclear how much; able to verbalize short sentences and nod in answer) - Endocrine Endocrine: reports: Intolerance to cold - Hematologic/Lymphatic Hematologic/Lymphatic: reports: Recurrent infections Physical Exam - Physical Exam General Appearance: positive: No acute distress Eyes Bilateral: positive: Normal inspection ENT: positive: Other (poor dentition) Cardiovascular: positive: Tachycardia Respiratory: positive: Diminished in bases, Rhonchi Abdomen: positive: Soft Skin: positive: Pallor Extremities: positive: Other (mild swelling in left arm; contracted hand/ shoulder/elbow) Neurologic/Psychiatric: positive: Other (tearful through conversation but making eye contact and nodding in agreement with when reviewed wishes;) Palliative Care - POLST Patient has POLST: Yes POLST Status: DNR, Comfort Measures (transitioning to comfort measures and hospice) Pain: Location (pain at baseline at [facility] was percocet 1 tab q6 hours; been more sporadic here with IV APAP; most tenderness with touch left arm) Tiredness/Fatigue: Moderate (4-6) (nods off but engaged; up in chair) Drowsiness/Sedation: Moderate (4-6) Performance Status: Patient now 2 person total lift assist into chair, had been pitted prior to arrival of hospital though had had some severe functional decline few days prior to admit. Patient has been dependent for quite a while, has been is concerned about [facility] managing her decline, reviewed hospice would be provided extra bathing support - Palliative Care Discussion: Who is present myself the and patient. Discussed that he had been talking with Rita Gandhi about no further tube feedings, understanding patient's aspiration risk would not be mitigated, and patient would not want to be supported by tubes and artificial means at this point and her illness. Patient does look apprehensive, when asked if scared she did nod yes, reassured would focus on comfort and providing support for both her and Musa. Went on to education counselor regarding hospice services at the focus on comfort, comfort medications , and allowing natural . DENIA [facility] was completed and reflection of this. Has been requested BLS transfer, her sister who is a nurse is coming, also asked for Britt pacheco speech therapist to come evaluate regarding safety for comfort feeding.Had spoken with Chrissy her speech therapist prior, reports the dysphasia was becoming significantly worse, and was surprised it has not been more problematic up to this point in time. She had been on a mechanical soft and thickened liquids, but signed a release as the appropriate would have been pure. She is not surprised that it is even more problematic at this point in time. Results - Lab Results Lab results reviewed: Yes Fish Bones: 03/25/18 07:46 03/25/18 07:46 Lab and Imaging Results: Lab Results x24hrs 03/25/18 03/25/18 Range/Units 07:46 07:46 WBC 5.0 (4.8-10.8) x10^3/uL RBC 2.91 L (4.20-5.40) 10^6/uL Hgb 8.7 L (12.0-16.0) g/dL Hct 25.9 L (37.0-47.0) % MCV 89.0 (81.0-99.0) fL MCH 30.0 (27.0-31.0) pg MCHC 33.7 (32.0-36.0) g/dL RDW 14.4 (12.0-15.0) % Plt Count 202 (130-450) 10^3/uL MPV 7.1 L (7.9-10.8) fL Neut # (Auto) 3.4 (1.5-6.6) 10^3/uL Lymph # (Auto) 0.9 L (1.5-3.5) 10^3/uL [place] # (Auto) 0.5 (0.0-1.0) 10^3/uL Eos # (Auto) 0.2 (0.0-0.7) 10^3/uL Baso # (Auto) 0.0 (0.0-0.1) 10^3/uL Absolute Nucleated RBC 0.00 x10^3/uL Nucleated RBC % 0.0 /100WBC Sodium 136 (135-145) mmol/L Potassium 2.6 L (3.5-5.0) mmol/L Chloride 104 (101-111) mmol/L Carbon Dioxide 25 (21-32) mmol/L Anion Gap 7.0 (6-13) BUN < 5 L (6-20) mg/dL Creatinine 0.6 (0.4-1.0) mg/dL Estimated GFR (MDRD) 98 (>89) Glucose 151 H (70-100) mg/dL Calcium 7.9 L (8.5-10.3) mg/dL Magnesium 1.3 L (1.7-2.8) mg/dL Total Bilirubin 0.3 (0.2-1.0) mg/dL AST 20 (10-42) IU/L ALT 10 (10-60) IU/L Alkaline Phosphatase 59 (42-121) IU/L Total Protein 6.2 L (6.7-8.2) g/dL Albumin 2.1 L (3.2-5.5) g/dL Globulin 4.1 (2.1-4.2) g/dL Albumin/Globulin Ratio 0.5 L (1.0-2.2) Impression and Recommendations - Palliative Care Impression: This is a 72-year-old woman who has severe dysphagia as a result of her strokes , and 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 She did receive chemoradiation with this and has changed the tissue with scarring and less flexibility. In the context of moving forward and defining goals of care, have decided to focus on comfort, quality of life recognizing quality of life is limited, and transition to hospice. Recommendations/Counseling Done: 1. Dysphagia as secondary to strokes/post radiation changes. Patient is made to forego tube feedings, did hear back from speech therapist Britt pacheco, patient still unable to tolerate any kind of oral intake. Her recommendation is ice chips only for comfort, reports sister had been there during the of bowel, this did provide support as far as patient's current level of functioning and declining quality of life. Recommend oral suction be available to assist with secretion management. 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 She is quite tender on her left side, some complaints of right-sided discomfort. Have been managed with Percocet 4 times a day, will discharge with morphine 5 mg every 2 hours as needed for discomfort. Would recommend initiating fentanyl patch with opioid load determined. Family is coming together, 's perception is patient's very sensitive to opioids, would like her to be able to say her goodbyes.May need Burlison's catheter, if patient unable to manage secretions. 3. Advanced care planning. DENIA ST in place, we did to reflect current goals. Counseling regarding decision to transition to hospice, BLS transport was requested, provider felt this was appropriate. Contact with hospice team for transition, would be able to admit her this afternoon, plan had been to return back to [facility] either today or tomorrow. Given availability will facitlitate today. Request comfort medications of lorazepam and morphine for discharge. Follow up with hospice, will supply mattress to decrease risk of skin breakdown as well. Time Spent: 45 minutes with greater than 50% of this done in counseling regarding goals of care, clarifying with DENIA [facility], and coordinating care with hospitalist, director of social services, and hospice.
== END 2018-03-25 14:45 | disposition home or self-care (01) | DRG 871 ==
LOC: EDUNIT# → ED 19:13 → ICU 21:34 → MS2 03-24 05:56
PROVIDERS: ADMIT Internal Medicine; ATTEND Nurse Practitioner Gerontology
DX: A41.9 Sepsis, unspecified organism (principal); A41.51 Sepsis due to Escherichia coli [E. coli]; J69.0 Pneumonitis due to inhalation of food and vomit; I69.354 Hemiplegia and hemiparesis following cerebral infarction affecting left non-dominant side; N10 Acute pyelonephritis; E87.2 Acidosis; E03.9 Hypothyroidism, unspecified; Z86.73 Personal history of transient ischemic attack (TIA), and cerebral infarction without residual deficits; G89.0 Central pain syndrome; M24.575 Contracture, left foot; M79.672 Pain in left foot; M24.542 Contracture, left hand; D64.9 Anemia, unspecified; I95.9 Hypotension, unspecified; I10 Essential (primary) hypertension; N28.9 Disorder of kidney and ureter, unspecified; F32.9 Major depressive disorder, single episode, unspecified; I69.321 Dysphasia following cerebral infarction; I69.322 Dysarthria following cerebral infarction; I69.391 Dysphagia following cerebral infarction; R13.11 Dysphagia, oral phase; R13.0 Aphagia; T66.XXXS Radiation sickness, unspecified, sequela; I69.319 Unspecified symptoms and signs involving cognitive functions following cerebral infarction; F01.50 Vascular dementia, unspecified severity, without behavioral disturbance, psychotic disturbance, mood disturbance, and anxiety; Z51.5 Encounter for palliative care; Z66 Do not resuscitate; Z85.819 Personal history of malignant neoplasm of unspecified site of lip, oral cavity, and pharynx; Z79.02 Long term (current) use of antithrombotics/antiplatelets; Z79.899 Other long term (current) drug therapy; Z92.21 Personal history of antineoplastic chemotherapy; Z92.3 Personal history of irradiation; Z79.891 Long term (current) use of opiate analgesic
CPT/HCPCS: 36415; 51701; 71045; 74230; 80048; 80053; 81001; 81003; 83605; 83690; 83735; 84443; 84484; 85025; 85610; 85730; 87040; 87086; 87150; 87181; 96365; 96368; 99222; 99233; 99284

== ENCOUNTER 2018-03-25 14:42 | Outpatient (CLI) | payer MEDICARE, OTHER, MEDICAID | END 2018-03-25 14:43 | disposition home or self-care (01) | LOC: EMS 14:42 | PROVIDERS: ATTEND Surgery | DX: C14.0 Malignant neoplasm of pharynx, unspecified (principal); G81.04 Flaccid hemiplegia affecting left nondominant side | CPT/HCPCS: A0425; A0428 ==